=== PATIENT | male | born 1970 | race Caucasian/White ===

== ENCOUNTER 2018-05-25 09:47 | Observation (INO) | payer SELFPAY ==
[2018-05-25] MEDS ORDERED: ASPIRIN 81 MG CHEWABLE TABLET ONE (10:21)
[2018-05-25] MEDS ORDERED: MORPHINE 4 MG/ML SYR ONE (10:21)
[2018-05-25] MEDS ORDERED: ONDANSETRON 4 MG/2 ML VIAL ONE (10:22)
[2018-05-25] MEDS ORDERED: FAMOTIDINE 20 MG/2 ML VIAL IV ONE (10:22)
[2018-05-25] MEDS ORDERED: NA CHLORIDE 0.9% 1,000 ML ONE (10:22)
[2018-05-25 10:29] LABS: Absolute Lymphocytes (CBC) 2.2 K/uL (0.7-4.9); Absolute Monocytes 0.7 K/uL (0.1-1.3); Absolute Neutrophil 3.4 K/uL (1.8-8.0); Basophils % 0.9 % (0-1.3); Eosinophils % 2.1 % (0-4.4); Hematocrit 49.8 % (39.6-49.0); Lymphocytes % 34.1 % (15.3-44.8); MCH 32.1 pg (27.0-35.0); MCV 97.2 fL (80-100); MPV 8.6 fL (7.6-11.3); Monocytes % 10.5 % (3.3-12.3); RBC Red Blood Cell Count 5.12 M/uL (4.33-5.43)
--- NOTE | 2018-05-25 10:46 | EDPHYS ---
Physician Documentation [facility] Department Name: Denny Velez Jr Age: 47 yrs Sex: Male : 1970 Arrival Date: 05/25/2018 Time: 09:[address] Private MD: ED Physician Gilbert Osborne HPI: 05/25 10:11 This 47 yrs old Male presents to ER via Wheelchair with complaints of Chest sydni Pain. 10:11 The patient or guardian reports chest pain that is located primarily in the anterior sydni chest wall, left. Onset: just prior to arrival, this morning. The pain does not radiate. Associated signs and symptoms: Pertinent positives: shortness of breath. The chest pain is described as a pressure, sharp. Duration: The patient or guardian reports multiple episodes, with no pattern. Modifying factors: The symptoms are alleviated by remaining still, the symptoms are aggravated by deep breath, movement. Severity of pain: At its worst the pain was mild moderate in the emergency department the pain is unchanged. The patient has not experienced similar symptoms in the past. Historical: - Allergies: 10: NKA; iw 10: No Known Allergies; tw2 - Home Meds: 10: None [Active]; iw - PMHx: 10: None; iw - PSHx: 10: kidney surg; Tonsillectomy; iw 10:02 kidney surg; Tonsillectomy; tw2 - Immunization history:: Adult Immunizations not up to date, Adult Immunizations up to date. - Social history:: Smoking status: Patient uses tobacco products, smokes one pack cigarettes per day. Smoking status: Patient uses tobacco products, smokes one pack cigarettes per day. - Ebola Screening: : Patient negative for fever greater than or equal to 101.5 degrees Fahrenheit, and additional compatible Ebola Virus Disease symptoms Patient denies exposure to infectious person Patient denies travel to an Ebola-affected area in the 21 days before illness onset No symptoms or risks identified at this time. - Family history:: not pertinent. ROS: 10:11 Constitutional: Negative for fever, chills, and weight loss, Eyes: Negative for injury, sydni pain, redness, and discharge, ENT: Negative for injury, pain, and discharge, Neck: Negative for injury, pain, and swelling, Respiratory: Negative for shortness of breath, cough, wheezing, and pleuritic chest pain, Abdomen/GI: Negative for abdominal pain, nausea, vomiting, diarrhea, and constipation, Back: Negative for injury and pain, : Negative for injury, bleeding, discharge, and swelling, MS/Extremity: Negative for injury and deformity, Skin: Negative for injury, rash, and discoloration, Neuro: Negative for headache, weakness, numbness, tingling, and seizure, Psych: Negative for depression, anxiety, suicide ideation, homicidal ideation, and hallucinations, Allergy/Immunology: Negative for hives, rash, and allergies, Endocrine: Negative for neck swelling, polydipsia, polyuria, polyphagia, and marked weight changes, Hematologic/Lymphatic: Negative for swollen nodes, abnormal bleeding, and unusual bruising. 10:11 Cardiovascular: Positive for chest pain, with movement, of the left supraclavicular area, left clavicle and anterior aspect of left upper chest. Exam: 10:11 Constitutional: This is a well developed, well nourished patient who is awake, alert, sydni and in no acute distress. Head/Face: Normocephalic, atraumatic. Eyes: Pupils equal round and reactive to light, extra-ocular motions intact. Lids and lashes normal. Conjunctiva and sclera are non-icteric and not injected. Cornea within normal limits. Periorbital areas with no swelling, redness, or edema. ENT: Nares patent. No nasal discharge, no septal abnormalities noted. Tympanic membranes are normal and external auditory canals are clear. Oropharynx with no redness, swelling, or masses, exudates, or evidence of obstruction, uvula midline. Mucous membranes moist. Neck: Trachea midline, no thyromegaly or masses palpated, and no cervical lymphadenopathy. Supple, full range of motion without nuchal rigidity, or vertebral point tenderness. No Meningismus. Chest/axilla: Normal chest wall appearance and motion. Nontender with no deformity. No lesions are appreciated. Cardiovascular: Regular rate and rhythm with a normal S1 and S2. No gallops, murmurs, or rubs. Normal PMI, no JVD. No pulse deficits. Respiratory: Lungs have equal breath sounds bilaterally, clear to auscultation and percussion. No rales, rhonchi or wheezes noted. No increased work of breathing, no retractions or nasal flaring. Abdomen/GI: Soft, non-tender, with normal bowel sounds. No distension or tympany. No guarding or rebound. No evidence of tenderness throughout. Back: No spinal tenderness. No costovertebral tenderness. Full range of motion. Male : Normal genitalia with no discharge or lesions. Skin: Warm, dry with normal turgor. Normal color with no rashes, no lesions, and no evidence of cellulitis. 10:14 Musculoskeletal/extremity: DVT Exam: No signs of deep vein thrombosis. no pain, no sydni swelling, no tenderness, negative Homans' sign noted on exam, no appreciated bluish discoloration, no erythema, no increased warmth. Vital Signs: 10:00 BP 135 / 101; Pulse 88; Resp 19; Temp 98.5; Pulse Ox 99% on R/A; Weight 65.77 kg; iw Height 5 ft. 9 in. (175.26 cm); Pain 7/10; 10:28 BP 101 / 82; Pulse 77; Resp 17; Pulse Ox 97% on R/A; tw2 11:45 BP 101 / 79; Pulse 68; Resp 17; Pulse Ox 96% on R/A; tw2 12:14 BP 116 / 84; Pulse 69; Resp 17; Pulse Ox 98% on R/A; aj 10:00 Body Mass Index 21.41 (65.77 kg, 175.26 cm) iw MDM: 10:02 Patient medically screened. [facility] 10:13 Data reviewed: vital signs, nurses notes, lab test result(s), EKG, radiologic studies, [facility] CT scan, doppler. 05/25 10:11 Order name: Basic Metabolic Panel; Complete Time: 10:58 [facility] 05/25 10:11 Order name: CBC with Diff; Complete Time: 10:44 [facility] 05/25 10:11 Order name: Ckmb; Complete Time: 10:58 [facility] 05/25 10:11 Order name: CPK; Complete Time: 10:58 [facility] 05/25 10:11 Order name: LFT's; Complete Time: 10:58 [facility] 05/25 10:11 Order name: Magnesium; Complete Time: 10:58 [facility] 05/25 10:11 Order name: NT PRO-BNP; Complete Time: 10:58 [facility] 05/25 10:11 Order name: PT-INR [facility] 05/25 10:11 Order name: Ptt, Activated [facility] 05/25 10:11 Order name: Troponin (emerg Dept Use Only); Complete Time: 10:58 [facility] 05/25 10:11 Order name: XRAY Chest (1 view) [facility] 05/25 10:11 Order name: Lipase; Complete Time: 10:58 [facility] 05/25 10:11 Order name: CT Chest For PE Angio [facility] 05/25 11:29 Order name: CT EDMI 05/25 10:11 Order name: EKG; Complete Time: 10:11 [facility] 05/25 10:11 Order name: Cardiac monitoring; Complete Time: 10:17 [facility] 05/25 10:11 Order name: EKG - Nurse/Tech; Complete Time: 10:17 [facility] 05/25 10:11 Order name: IV Saline Lock; Complete Time: 10:17 [facility] 05/25 10:11 Order name: Labs collected and sent; Complete Time: 10:17 [facility] 05/25 10:11 Order name: O2 Per Protocol; Complete Time: 10:17 [facility] 05/25 10:11 Order name: O2 Sat Monitoring; Complete Time: 10:17 [facility] Administered Medications: 10:23 Drug: Zofran 4 mg Route: IVP; Site: right antecubital; tw2 11:59 Follow up: Response: No adverse reaction tw2 10:25 Drug: Aspirin Chewable Tablet 162 mg Route: PO; tw2 11:59 Follow up: Response: No adverse reaction tw2 10:25 Drug: morphine 2 mg Route: IVP; Site: right antecubital; tw2 11:59 Follow up: Response: No adverse reaction tw2 10:27 Drug: Pepcid 20 mg Route: IVP; Site: right antecubital; tw2 11:59 Follow up: Response: No adverse reaction tw2 10:28 Drug: NS 0.9% 1000 ml Route: IV; Rate: 1 bolus; Site: right antecubital; tw2 12:29 Follow up: Response: No adverse reaction; IV Status: Completed infusion; IV Intake: aj 1000ml 11:35 Drug: Lovenox 1 mg/kg Route: Sub-Q; Site: abdomen; aj 11:59 Follow up: Response: No adverse reaction tw2 12:47 Not Given (Duplicate Order): morphine 2 mg IVP once tw2 Disposition: 05/25/18 10:45 Hospitalization ordered by Kushal Spicer for Inpatient Admission. Preliminary diagnosis is Chest pain, unspecified. - Bed requested for Telemetry/MedSurg (observation). - Status is Inpatient Admission. tw2 - Condition is Fair. - Problem is new. - Symptoms have improved. UTI on Admission? No Signatures: Dispatcher [employer] EDMargaret Chery, RN Gilbert Clements MD MD cha Williams, Irene RN ROSARIO Madisyn Castillo Tara, RN RN tw2 Corrections: (The following items were deleted from the chart) 12:09 10:45 Hospitalization Ordered by Kushal Spicer MD for Inpatient Admission. Preliminary ag diagnosis is Chest pain, unspecified. Bed requested for Telemetry/MedSurg (observation). Status is Inpatient Admission. Condition is Fair. Problem is new. Symptoms have improved. UTI on Admission? No. sydni 13:04 12:09 05/25/2018 10:45 Hospitalization Ordered by Kushal Spicer MD for Inpatient tw2 Admission. Preliminary diagnosis is Chest pain, unspecified. Bed requested for Telemetry/MedSurg (observation). Status is Inpatient Admission. Condition is Fair. Problem is new. Symptoms have improved. UTI on Admission? No. ag
--- NOTE | 2018-05-25 10:46 | ER ---
Nurse's Notes [facility] Name: Denny Velez Jr Age: 47 yrs Sex: Male : 1970 Arrival Date: 05/25/2018 Time: 09:[address] Private MD: Diagnosis: Chest pain, unspecified Presentation: 05/25 09:59 Presenting complaint: Patient states: c/o left sided chest pain that started about an iw hour ago while at work, pain is sharp, constant, feels tingling in fingertips, rates pain 6/10, denies cardiac hx, denies injury to area. Transition of care: patient was not received from another setting of care. Onset of symptoms was May 25, 2018. Risk Assessment: Do you want to hurt yourself or someone else? Patient reports no desire to harm self or others. Initial Sepsis Screen: Does the patient meet any 2 criteria? No. Patient's initial sepsis screen is negative. Does the patient have a suspected source of infection? No. Patient's initial sepsis screen is negative. Care prior to arrival: None. 09:59 Method Of Arrival: Wheelchair iw 09:59 Acuity: PRANEETH 3 iw Historical: - Allergies: 10:01 NKA; iw 10:02 No Known Allergies; tw2 - Home Meds: 10:01 None [Active]; iw - PMHx: 10:01 None; iw - PSHx: 10:01 kidney surg; Tonsillectomy; iw 10:02 kidney surg; Tonsillectomy; tw2 - Immunization history:: Adult Immunizations not up to date, Adult Immunizations up to date. - Social history:: Smoking status: Patient uses tobacco products, smokes one pack cigarettes per day. Smoking status: Patient uses tobacco products, smokes one pack cigarettes per day. - Ebola Screening: : Patient negative for fever greater than or equal to 101.5 degrees Fahrenheit, and additional compatible Ebola Virus Disease symptoms Patient denies exposure to infectious person Patient denies travel to an Ebola-affected area in the 21 days before illness onset No symptoms or risks identified at this time. - Family history:: not pertinent. Screenin:07 Abuse screen: Denies threats or abuse. Nutritional screening: No deficits noted. tw2 Tuberculosis screening: No symptoms or risk factors identified. Fall Risk None identified. Assessment: 10:04 General: Appears uncomfortable, slender, Behavior is calm, cooperative, appropriate for tw2 age. General: Smells of cigarette smoke. Pain: Complains of pain in chest Pain radiates to left arm Pain began suddenly, 1 hour ago. Neuro: Level of Consciousness is awake, alert, obeys commands, Oriented to person, place, time, situation. Cardiovascular: Reports None Denies shortness of breath, Heart tones S1 S2 Capillary refill < 3 seconds Patient's skin is warm and dry. Cardiovascular: Reports worse with deep breath. Respiratory: Airway is patent Respiratory effort is even, unlabored, Respiratory pattern is regular, symmetrical, Breath sounds are clear bilaterally. GI: No signs and/or symptoms were reported involving the gastrointestinal system. Abdomen is flat, Bowel sounds present X 4 quads. : No signs and/or symptoms were reported regarding the genitourinary system. EENT: No signs and/or symptoms were reported regarding the EENT system. Derm: No signs and/or symptoms reported regarding the dermatologic system. Musculoskeletal: Range of motion: intact in all extremities. 10:29 Reassessment: Patient appears in no apparent distress at this time. No changes from tw2 previously documented assessment. Patient and/or family updated on plan of care and expected duration. Pain level reassessed. Patient is alert, oriented x 3, equal unlabored respirations, skin warm/dry/pink. 12:00 Reassessment: Patient appears in no apparent distress at this time. Patient and/or tw2 family updated on plan of care and expected duration. Pain level reassessed. Patient is alert, oriented x 3, equal unlabored respirations, skin warm/dry/pink. Patient states feeling better. 12:47 Reassessment: Patient appears in no apparent distress at this time. No changes from tw2 previously documented assessment. Patient and/or family updated on plan of care and expected duration. Pain level reassessed. Patient is alert, oriented x 3, equal unlabored respirations, skin warm/dry/pink. Vital Signs: 10:00 BP 135 / 101; Pulse 88; Resp 19; Temp 98.5; Pulse Ox 99% on R/A; Weight 65.77 kg; iw Height 5 ft. 9 in. (175.26 cm); Pain 7/10; 10:28 BP 101 / 82; Pulse 77; Resp 17; Pulse Ox 97% on R/A; tw2 11:45 BP 101 / 79; Pulse 68; Resp 17; Pulse Ox 96% on R/A; tw2 12:14 BP 116 / 84; Pulse 69; Resp 17; Pulse Ox 98% on R/A; aj 10:00 Body Mass Index 21.41 (65.77 kg, 175.26 cm) iw ED Course: 09:50 Patient arrived in ED. rg4 10:00 Rosibel Jefferson, RN is Primary Nurse. tw2 10:00 Arm band placed on. iw 10:00 Placed in gown. Bed in low position. Adult w/ patient. 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 Pulse ox on. tw2 NIBP on. 10:01 Triage completed. iw 10:02 Gilbert Osborne MD is Attending Physician. sydni 10:06 Primary Nurse role handed off by Rosbiel Jefferson RN aj 10:06 Margaret Bernal RN is Primary Nurse. aj 10:06 Patient maintains SpO2 saturation greater than 95% on room air. tw2 10:15 No provider procedures requiring assistance completed. Inserted saline lock: 20 gauge tw2 in right antecubital area, using aseptic technique. Blood collected. 10:16 Rosibel Jefferson, RN is Primary Nurse. tw2 10:30 X-ray completed. Portable x-ray completed in exam room. Patient tolerated procedure ml well. 10:31 XRAY Chest (1 view) In Process Unspecified. EDMS 10:45 Kushal Spicer MD is Hospitalizing Provider. sydni 11:10 CT completed. Patient moved back from CT. sj 12:28 Patient admitted, IV remains in place. intact. aj Administered Medications: 10:23 Drug: Zofran 4 mg Route: IVP; Site: right antecubital; tw2 11:59 Follow up: Response: No adverse reaction tw2 10:25 Drug: Aspirin Chewable Tablet 162 mg Route: PO; tw2 11:59 Follow up: Response: No adverse reaction tw2 10:25 Drug: morphine 2 mg Route: IVP; Site: right antecubital; tw2 11:59 Follow up: Response: No adverse reaction tw2 10:27 Drug: Pepcid 20 mg Route: IVP; Site: right antecubital; tw2 11:59 Follow up: Response: No adverse reaction tw2 10:28 Drug: NS 0.9% 1000 ml Route: IV; Rate: 1 bolus; Site: right antecubital; tw2 12:29 Follow up: Response: No adverse reaction; IV Status: Completed infusion; IV Intake: aj 1000ml 11:35 Drug: Lovenox 1 mg/kg Route: Sub-Q; Site: abdomen; aj 11:59 Follow up: Response: No adverse reaction tw2 12:47 Not Given (Duplicate Order): morphine 2 mg IVP once tw2 Intake: 12:29 IV: 1000ml; Total: 1000ml. Outcome: 10:45 Decision to Hospitalize by Provider. sydni 12:28 Admitted to Tele accompanied by tech, via wheelchair, Report called to Keyona hutchison 12:28 Condition: good 12:28 Instructed on the need for admit. 13:04 Patient left the ED. tw2 Signatures: Dispatcher [employer] Margaret Jacob, RN RN Gilbert José MD MD cha Jones, Rebecca Caldwell, RN ROSARIO iw Lynn Carey Tara, RN RN tw2 Lata Romero rg4 Corrections: (The following items were deleted from the chart) 10:01 10:00 BP 135 / 101; Pulse 88bpm; Resp 19bpm; Pulse Ox 99% RA; Temp 98.5F; tw2 iw
[2018-05-25 10:47] LABS: ALT/SGPT 131 U/L (12-78); AST/SGOT 56 U/L (15-37); Albumin 4.2 g/dL (3.4-5.0); Alkaline Phosphatase 70 U/L (45-117); BUN Blood Urea Nitrogen 17 mg/dL (7-18); Bicarbonate 32 mmol/L (21-32); Bilirubin Direct 0.2 mg/dL (0-0.2); Bilirubin Total 0.5 mg/dL (0.2-1.0); CKMB Creatine Kinase MB 2.9 ng/mL (0.3-3.6); Creatine Phosphokinase 86 U/L (39-308); Glucose Level 124 mg/dL (74-106); Lipase 92 U/L (73-393); Magnesium 2.4 mg/dL (1.8-2.4); NT PRO-BNP 166 pg/mL (<125); Protein, Total 7.5 g/dL (6.4-8.2); Sodium Level 141 mmol/L (136-145)
[2018-05-25] MEDS ORDERED: ENOXAPARIN 60 MG/0.6 ML SQ ONE (10:54)
[2018-05-25 11:04] LABS: Protime INR 0.92
[2018-05-25] MEDS ORDERED: MORPHINE 4 MG/ML SYR IV PRN (11:14)
[2018-05-25] MEDS ORDERED: ACETAMINOPHEN 500 MG TAB PO PRN (11:14)
[2018-05-25] MEDS ORDERED: ALPRAZOLAM 0.25 MG TABLET PO PRN (11:14)
[2018-05-25] MEDS ORDERED: NITROGLYCERIN 0.4 MG/TAB SL PRN (11:14)
[2018-05-25] MEDS ORDERED: LISINOPRIL 10 MG TAB PO SCH (11:14)
[2018-05-25] MEDS ORDERED: ZOLPIDEM TARTRATE 5 MG TABLET PO PRN (11:14)
--- NOTE | 2018-05-25 11:28 | RAD REPORT ---
EXAM DESCRIPTION: CT - Chest For Pe Angio - 05/25/2018 11:15 am CLINICAL HISTORY: Chest pain started 1 hour ago. COMPARISON: None. TECHNIQUE: Dynamically enhanced axial 3 mm thick images of the chest were obtained during administra tion of <100> mL Isovue 370 IV contrast. Coronal and oblique reconstruction images were generated and reviewed. Exam utilizes a protocol for optimal evaluation of pulmonary arterial tree. Maximum intensity projections 3D imaging was utilized All CT scans are performed using dose optimization technique as appropriate and may include automated exposure control or mA/KV adjustment according to patient size. FINDINGS: A pulmonary embolus is not seen. A thoracic aortic aneurysm is not noted. A pleural effusion is not seen. A pericardial effusion is not seen. A lung consolidation is not present. Calcified granuloma is present within the right lung. Mild anushka eptal emphysema is present. An 11 millimeter soft tissue structure abuts the right aspect of an upper thoracic vertebral body. A 9 millimeter retrocrural lymph node is present within the upper abdomen IMPRESSION: Negative for a pulmonary embolism. 11 millimeter right paravertebral soft tissue mass may be neurogenic in nature. 9 millimeter retrocrural lymph node within the upper abdomen. It is recommended that the patient have a followup CT scan in 3 months to assess stability of these s tructures
--- NOTE | 2018-05-25 11:40 | RAD REPORT ---
EXAM DESCRIPTION: Ne Single View05/25/2018 10:33 am CLINICAL HISTORY: Chest pain COMPARISON: 2013 FINDINGS: The lungs are hyperaerated. The lungs appear clear of acute infiltrate. The heart is normal size IMPRESSION: COPD without visualization acute abnormality
[2018-05-25] MEDS ORDERED: SODIUM CHLORIDE 0.9% 10ML INJ IV PRN (13:54)
--- NOTE | 2018-05-25 15:27 | ECHO ---
HEIGHT: 5 ft 9 in WEIGHT: 145 lb 0 oz DATE OF STUDY: 05/25/[address]: Kushal Spicer MD 2-DIMENSIONAL: YES M.MODE: YES DOPPLER: YES COLOR FLOW: YES TDS: PORTABLE: DEFINITY: BUBBLE STUDY: DIAGNOSIS: CHEST PAIN CARDIAC HISTORY: CATHERIZATION: NO SURGERY: NO PROSTHETIC VALVE: NO PACEMAKER: NO MEASUREMENTS (cm) DIASTOLIC (NORMALS) SYSTOLIC (NORMALS) IVSd 1.0 (0.6-1.2) LA Diam 3.1 (1.9-4.0) LVEF 63% LVIDd 4.4 (3.5-5.7) LVIDs 2.9 (2.0-3.5) %FS 34% LVPWd 1.1 (0.6-1.2) Ao Diam 2.7 (2.0-3.7) 2 DIMENSIONAL ASSESSMENT: RIGHT ATRIUM: NORMAL LEFT ATRIUM: NORMAL RIGHT VENTRICLE: NORMAL LEFT VENTRICLE: NORMAL TRICUSPID VALVE: NORMAL MITRAL VALVE: NORMAL PULMONIC VALVE: NORMAL AORTIC VALVE: NORMAL PERICARDIAL EFFUSION: NONE AORTIC ROOT: NORMAL LEFT VENTRICULAR WALL MOTION: NORMAL DOPPLER/COLOR FLOW: MILD TRICUSPID REGURGITATION COMMENTS: MILD TRICUSPID REGURGITATION. NORMAL RIGHT VENTRICULAR SYSTOLIC PRESSURE. NORMAL LEFT VENTRICULAR SIZE AND FUNCTION. NO WALL MOTION ABNORMALITY. NO EFFUSION. TECHNOLOGIST: DARWIN DALLAS
[2018-05-25 15:33] VITALS: BMI 21.4
--- NOTE | 2018-05-25 15:35 | EKG ---
Test Date: 2018-05-25 Test Time: 10:01:25 Mine Expert: BEN MEASUREMENT RESULTS: Intervals: Rate: 69 CT: 124 QRSD: 82 QT: 360 QTc: 385 [place]: P: 75 CT: 124 QRS: 78 T: 60 INTERPRETIVE STATEMENTS: Normal sinus rhythm Early repolarization Normal ECG Compared to ECG 04/25/2017 19:58:02 Early repolarization now present Sinus arrhythmia no longer present Electronically Signed On 05-25-18 15:33:43 CDT by Zbigniew Alex
[2018-05-25] MEDS: PANTOPRAZOLE 40 MG INJ IVP SCH ×2 (18:14→20:42)
[2018-05-25 18:58] LABS: Urine Appearance CLEAR; Urine Bilirubin NEGATIVE (NEG); Urine Blood NEGATIVE (NEG); Urine Color YELLOW; Urine Glucose NEGATIVE (NEG); Urine Protein NEGATIVE (NEG); Urine Specific Gravity >=1.030 (1.005-1.030); Urine Urobilinogen 0.2 mg/dL (0.2-1.0); Urine pH 6.5 (5.0-7.0)
[2018-05-25 19:11] LABS: Urine Bacteria <20 /HPF (NONE SEEN); Urine Culture Reflex Order NOT NEEDED; Urine Mucus 1+ /HPF (NONE SEEN); Urine RBC <5 /HPF (NONE SEEN)
[2018-05-25] MEDS ORDERED: METOPROLOL TAR 25 MG TAB PO SCH (21:00)
[2018-05-25] MEDS ORDERED: ATORVASTATIN 40 MG TAB PO SCH (21:00)
--- NOTE | 2018-05-25 23:37 | HP ---
Date of Admission: 05/25/2018 Consultants: Dr. Alex with Cardiology. Primary Care Physician: None. History Of Present Illness: The patient is a 47-year-old male with past medical history of gastroeso phageal reflux disease, who has not seen a physician for 4 years, used to see Dr. Neil, does not neetu e any medications at home other than some sstv-edq-[id number] Prilosec. Comes in with sudden onset of c hest pain while at work. 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 He exper ienced sharp stabbing type pain in his left chest along with some numbness and tingling of his left h and and fingers. The patient also has some shortness of breath. No nausea, vomiting, diaphoresis. Pain was constant, moderate, progressively worsening. The patient does smoke. The patient therefore came into the ER for further evaluation. No alleviating or aggravating factor. He also reports sha rp pain with deep breath, unable to take a deep breath without having pain. The patient's vital sign s were stable in the ER. His workup revealed normal troponin level. White count was normal. Did kaye ve some elevated liver enzymes. CT angio chest was done which showed negative for PE 11 mm right par avertebral soft tissue mass, may be neurogenic in nature, 9 mm retrocrural lymph node within the uppe r abdomen, recommended to have a followup CT in 3 months to assess stability of these structures. Th e patient is admitted to the hospital for further evaluation for chest pain rule out. When seen in [facility] ER, he was awake, alert, oriented x3, not in any acute distress; however, still complaining of navi e chest pressure. Past Medical History: Gastroesophageal reflux disease. Past Surgical History: The patient had kidney surgery as a child due to trauma, tonsillectomy. Social History: The patient smokes 1 pack per day for the past 35 years. Was a heavy drinker; [facility], quit approximately 1 year ago. The patient is . Denies any illicit drug use. 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 Allergies: NO KNOWN DRUG ALLERGIES. Medications: The patient takes fggw-gsw-yunjotz Prilosec only. Family History: Mother had diabetes and stroke. Dad and brother have hypertension. Review of Systems: An 11-point system reviewed, negative except as per HPI. Physical Examination: Vital Signs: Pulse 77, respirations 17, blood pressure 101/82, O2 of 97% on room air. Initial blood pressure was 135/101, temperature 98.5. General: Awake, alert, oriented x3. Some mild distress, appears older than stated age. CV: S1, S2. No murmurs. Regular rate and rhythm. Peripheral pulses are present. HEENT: Normocephalic, atraumatic. PERRLA. EOMI. Moist mucous membranes. Oropharynx is clear. Poo r dentition. Conjunctiva is anicteric. Neck: Supple. No JVD. Trachea midline. Respiratory: Clear to auscultation bilaterally. No wheezing. No stridor. No use of accessory musc les. Gastrointestinal: Abdomen is soft, nontender, nondistended. Positive bowel sounds. No guarding or rigidity. No hepatomegaly. Extremities: No clubbing, cyanosis, or edema. No calf tenderness. Neuro: Cranial nerves 2 through 12 intact grossly. No focal neurological deficit. Speech is normal . Strength is 5/5 bilateral upper, lower extremities. Skin: No rashes. Normal skin turgor. Psych: Mood is okay. Affect is full. Insight and judgment are good. Laboratory Data: Sodium 141, potassium 4, chloride 104, CO2 of 32, BUN 17, creatinine 0.8, glucose 1 24, calcium 9.1, magnesium 2.4, AST 56, ALT 131. Troponin is less than 0.02. BNP 166, lipase 92. I NR 0.92. WBC 6.5, H and H 16.5 and 49.8, platelets 210. CT angio chest shows no PE, shows 11 mm right paravertebral soft tissue mass, may be neurogenic. A 9 mm retrocrural lymph node within the upper abdomen. Chest x-ray personally reviewed, shows COPD wit hout visualization of acute abnormality. Assessment And Plan: A 47-year-old male with: 1.Chest pain, rule out acute coronary syndrome. We will start on chest pain guidelines and with asp irin, statin, beta-greta, GLENIS inhibitor. Consult Cardiology. Obtain echocardiogram. The patient may require stress test. Initial troponin and EKG did not show any changes. The patient does have r isk factors, smoker. 2.Nicotine dependence with cigarette smoking, uncomplicated, counseled. 3.Elevated liver enzymes, likely related to fatty liver disease or possibly alcoholic liver disease. The patient has a longstanding history of drinking, quit about a year ago. 4.Gastroesophageal reflux disease. We will continue with IV PPI. The patient likely does have pept ic ulcer disease from his symptoms that he describes. The patient will need outpatient gastrointesti nal followup. 5.An 11 mm right paravertebral soft tissue mass. Followup CT in 3 months. 6.A 9 mm retrocrural lymph node, upper abdomen. Follow up CT scan in 3 months. 7.Gastrointestinal and deep venous thrombosis prophylaxis with PPI and Lovenox. Plan: Admit the patient to Med-Surg, [facility] as observation. SHARMIN Voice ID: [id number]
[2018-05-26 04:15] LABS: Absolute Lymphocytes (CBC) 2.2 K/uL (0.7-4.9); Absolute Monocytes 0.7 K/uL (0.1-1.3); Absolute Neutrophil 3.8 K/uL (1.8-8.0); Basophils % 0.7 % (0-1.3); Eosinophils % 2.4 % (0-4.4); Hematocrit 47.8 % (39.6-49.0); MCH 32.3 pg (27.0-35.0); MCV 98.1 fL (80-100); MPV 8.8 fL (7.6-11.3); Monocytes % 10.1 % (3.3-12.3); RBC Red Blood Cell Count 4.87 M/uL (4.33-5.43)
[2018-05-26 05:06] LABS: BUN Blood Urea Nitrogen 14 mg/dL (7-18); Bicarbonate 30 mmol/L (21-32); Glucose Level 107 mg/dL (74-106); HDL Cholesterol 45 mg/dL (40-60); LDL Cholesterol, Calculated 28 (<130); Potassium 4.2 mmol/L (3.5-5.1); Sodium Level 141 mmol/L (136-145)
--- NOTE | 2018-05-26 08:09 | P.PN ---
Subjective Date of Service: 05/26/18 Primary Care Provider: None Chief Complaint: Chest pain Subjective: Improving Physical Examination - Vital Signs Temperature: 98.4 F Blood Pressure: 110/70 Pulse: 66 Respirations: 18 Pulse Ox (%): 93 - Physical Exam General: Alert, In no apparent distress, Oriented x3, Cooperative HEENT: Atraumatic Neck: Supple Respiratory: Normal air movement, Expiratory wheezes (Mild wheezing) Cardiovascular: Normal pulses, Regular rate/rhythm Gastrointestinal: Normal bowel sounds, Soft and benign, Non-distended, No tenderness, No masses, No rebound, No guarding Musculoskeletal: No erythema, No tenderness, No warmth Integumentary: No tenderness/swelling, No erythema, No warmth, No cyanosis Neurological: Normal speech, Normal strength at 5/5 x4 extr, Normal tone - Studies Laboratory Data (last 24 hrs) 05/25/18 10:10: PT 10.8, INR 0.92, APTT 26.2 05/25/18 10:10: WBC 6.5, Hgb 16.5, Hct 49.8 H, Plt Count 210 05/25/18 10:10: Sodium 141, Potassium 4.0, BUN 17, Creatinine 0.80, Glucose 124 H, Magnesium 2.4, Total Bilirubin 0.5, AST 56 H, ALT 131 H, Alkaline Phosphatase 70, Lipase 92 Medications List Reviewed: Yes Assessment & Plan - Problems (Diagnosis) (1) Chest pain Current Visit: Yes Status: Acute Plan: Chest pain sounds atypical. Likely musculoskeletal. Patient evaluated by Cardiology. Stress tests will be ordered. Await results. If negative the patient can be discharged home. Will review blood pressure if the patient requires medication. Will continue with aspirin. Patient on DVT prophylaxis. Tobacco cessation addressed in detail. Qualifiers: Chest pain type: unspecified Qualified Code(s): R07.9 - Chest pain, unspecified (2) COPD (chronic obstructive pulmonary disease) Current Visit: Yes Status: Suspected Plan: Patient is a long-time smoker. He plans to quit. Patient with mild wheezing. Will start Symbicort and ProAir at discharge. Qualifiers: COPD type: chronic bronchitis Chronic bronchitis type: unspecified Qualified Code(s): J42 - Unspecified chronic bronchitis (3) GERD (gastroesophageal reflux disease) Current Visit: Yes Status: Chronic Plan: Patient takes over the counter medication. Patient will be discharged on Protonix 40 mg daily. Recommendation for the patient to follow up with GI as an outpatient to further address. Qualifiers: Esophagitis presence: esophagitis presence not specified Qualified Code(s) : K21.9 - Gastro-esophageal reflux disease without esophagitis (4) Tobacco abuse Current Visit: Yes Status: Chronic Plan: Tobacco cessation addressed in detail. Patient plans to quit. Will provide nicotine patch. Discharge Plan: Home Plan to discharge in: 24 Hours - Code Status/Comfort Care Code Status Assessed: Yes (Patient full code) Time Spent Managing Pts Care (In Minutes): 55
[2018-05-26] MEDS ORDERED: ASPIRIN EC 81 MG TAB PO SCH (09:00)
[2018-05-26] MEDS: PANTOPRAZOLE 40 MG INJ IVP SCH (09:00)
[2018-05-26] MEDS ORDERED: LISINOPRIL 5 MG TAB PO SCH (09:00)
[2018-05-26] MEDS ORDERED: ENOXAPARIN 40 MG/0.4 ML SQ SCH (09:00)
[2018-05-26 09:04] VITALS: O2SAT 94
--- NOTE | 2018-05-26 10:22 | P.DS ---
Admission Date: 05/25/18 Discharge Date: 05/26/18 Primary Care Provider: None Disposition: ROUTINE DISCHARGE Discharge Condition: GOOD Reason for Admission: Chest pain Consultations: Cardiology-Dr. Alex Procedures: Chest CT scan: FINDINGS: A pulmonary embolus is not seen. A thoracic aortic aneurysm is not noted. A pleural effusion is not seen. A pericardial effusion is not seen. A lung consolidation is not present. Calcified granuloma is present within the right lung. Mild paraseptal emphysema is present. An 11 millimeter soft tissue structure abuts the right aspect of an upper thoracic vertebral body. A 9 millimeter retrocrural lymph node is present within the upper abdomen IMPRESSION: Negative for a pulmonary embolism. 11 millimeter right paravertebral soft tissue mass may be neurogenic in nature. 9 millimeter retrocrural lymph node within the upper abdomen. It is recommended that the patient have a followup CT scan in 3 months to assess stability of these structures Echocardiogram: Ejection fraction 63%. Mild tricuspid regurgitation noted. - Problems (1) Chest pain Current Visit: Yes Status: Acute Qualifiers: Chest pain type: unspecified Qualified Code(s): R07.9 - Chest pain, unspecified (2) COPD (chronic obstructive pulmonary disease) Current Visit: Yes Status: Suspected Qualifiers: COPD type: chronic bronchitis Chronic bronchitis type: unspecified Qualified Code(s): J42 - Unspecified chronic bronchitis (3) GERD (gastroesophageal reflux disease) Current Visit: Yes Status: Chronic Qualifiers: Esophagitis presence: esophagitis presence not specified Qualified Code(s) : K21.9 - Gastro-esophageal reflux disease without esophagitis (4) Tobacco abuse Current Visit: Yes Status: Chronic (5) Musculoskeletal pain Current Visit: Yes Status: Acute (6) Abnormal CT scan Current Visit: Yes Status: Acute Brief History of Present Illness: 47-year-old male present emergency room with left-sided chest pain. This occurred after working. 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 He had pain to the left chest wall region. The patient was admitted for further evaluation and treatment. Patient with history of tobacco abuse, GERD. Hospital Course: During the course of his stay the patient was evaluated. CT chest was negative for pulmonary embolism. 11 mm right paravertebral soft tissue mass, may be neurogenic in nature was noted. A 9 mm retrocrural lymph node to the upper abdomen was noted. The patient was evaluated by cardiology. Cardiology felt this was noncardiac in nature. Cardiac enzymes were unremarkable. No significant EKG changes were noted. Patient blood pressure and cholesterol panel was within normal range. At discharge the patient will continue with aspirin 81 mg daily. Recommendation is for the patient follow up with cardiology within 1 week. Patient will have outpatient stress test to further assess. This is likely musculoskeletal in nature. Recommendations on stretching was provided. Patient may use Tylenol as needed for pain. Patient will be given a limited supply of tramadol to be use as needed. Patient has GERD. Recommendation at discharge is to continue with Protonix 40 mg 1 pill once daily. Recommendation is for the patient follow up with GI as an outpatient to further evaluate. Patient may require EGD. Recommendation on to decrease nonsteroidal anti inflammatory use in the future. Patient smokes tobacco. Tobacco cessation addressed in detail. Patient plans to quit. I will provide nicotine patch for the patient. Patient did have some wheezing. With his history of tobacco use, patient likely has underlying COPD. At discharge the patient will be started on Airduo 1 puff twice daily and Pro air 2 puffs 3 times a day as needed for shortness of breath. Recommendations for the patient follow up with pulmonology in outpatient to further evaluate. Patient may require PFTs to further address. The patient had abnormal CT scan showing 11 mm peravertebral soft tissue mass likely from neurogenic and a 9 mm retrocrural lymph node to the upper abdomen. Recommendation is to recheck CT scan in 3 months to monitor stability. Vital Signs/Physical Exam: Temp Pulse Resp BP Pulse Ox 98.4 F 66 18 110/70 93 05/26/18 08:09 05/26/18 08:09 05/26/18 08:09 05/26/18 08:09 05/26/18 08:09 General: Alert, In no apparent distress, Oriented x3, Cooperative HEENT: Atraumatic, Mucous membr. moist/pink Neck: Supple Respiratory: Expiratory wheezes (Mild wheezing) Cardiovascular: Normal pulses, Regular rate/rhythm Gastrointestinal: Normal bowel sounds, Soft and benign, Non-distended, No tenderness, No masses, No rebound, No guarding Musculoskeletal: No erythema, No tenderness, No warmth Integumentary: No tenderness/swelling, No erythema, No warmth, No cyanosis Neurological: Normal speech, Normal strength at 5/5 x4 extr, Normal tone, Normal affect Lymphatics: No axilla or inguinal lymphadenopathy Laboratory Data at Discharge: WBC 6.9 K/uL (4.3-10.9) 05/26/18 03:54 Hgb 15.7 g/dL (13.6-17.9) 05/26/18 03:54 Hct 47.8 % (39.6-49.0) 05/26/18 03:54 Plt Count 195 K/uL (152-406) 05/26/18 03:54 PT 10.8 SECONDS (9.5-12.5) 05/25/18 10:10 INR 0.92 05/25/18 10:10 APTT 26.2 SECONDS (24.3-36.9) 05/25/18 10:10 Sodium 141 mmol/L (136-145) 05/26/18 03:54 Potassium 4.2 mmol/L (3.5-5.1) 05/26/18 03:54 BUN 14 mg/dL (7-18) 05/26/18 03:54 Creatinine 0.80 mg/dL (0.55-1.3) 05/26/18 03:54 Glucose 107 mg/dL (74-106) H 05/26/18 03:54 Magnesium 2.4 mg/dL (1.8-2.4) 05/25/18 10:10 Total Bilirubin 0.5 mg/dL (0.2-1.0) 05/25/18 10:10 AST 56 U/L (15-37) H 05/25/18 10:10 ALT 131 U/L (12-78) H 05/25/18 10:10 Alkaline Phosphatase 70 U/L (45-117) 05/25/18 10:10 Troponin I < 0.02 ng/mL (0.0-0.045) 05/26/18 03:54 Triglycerides 66 mg/dL (<150) 05/26/18 03:54 Cholesterol 86 mg/dL (<200) 05/26/18 03:54 HDL Cholesterol 45 mg/dL (40-60) 05/26/18 03:54 Cholesterol/HDL Ratio 1.91 05/26/18 03:54 Lipase 92 U/L (73-393) 05/25/18 10:10 Home Medications: Albuterol Sulfate [Proair Hfa] 8.5 gm IH TID PRN #1 hfa.aer.ad 05/26/18 Aspirin [Aspirin EC 81 MG] 81 mg PO DAILY #90 tablet. 05/26/18 Fluticasone/Salmeterol [Airduo Respiclick 113-14 Mcg] 1 each IH BID #1 aer.pow.ba 05/26/18 Nicotine [Nicoderm*] 21 mg TD DAILY #30 patch.td24 05/26/18 Pantoprazole [Protonix Tab] 40 mg PO DAILY #30 tab 05/26/18 Tramadol HCl [Ultram] 50 mg PO TID PRN #10 tablet 05/26/18 New Medications: Albuterol Sulfate [Proair Hfa] 8.5 gm IH TID PRN #1 hfa.aer.ad PRN Reason: Shortness Of Breath Aspirin [Aspirin EC 81 MG] 81 mg PO DAILY #90 tablet. Fluticasone/Salmeterol [Airduo Respiclick 113-14 Mcg] 1 each IH BID #1 aer.pow.ba Nicotine [Nicoderm*] 21 mg TD DAILY #30 patch.td24 Pantoprazole [Protonix Tab] 40 mg PO DAILY #30 tab Tramadol HCl [Ultram] 50 mg PO TID PRN #10 tablet PRN Reason: Pain Patient Discharge Instructions: 1. Patient will need to follow up with his PCP in 1 week to follow up this hospitalization. 2. Patient presented with chest pain. CT chest was negative for pulmonary embolism. 11 mm right paravertebral soft tissue mass, may be neurogenic in nature was noted. A 9 mm retrocrural lymph node to the upper abdomen was noted. The patient was evaluated by cardiology. Cardiology felt this was noncardiac in nature. Cardiac enzymes were unremarkable. Patient blood pressure and cholesterol panel was within normal range. At discharge the patient will continue with aspirin 81 mg daily. Recommendation is for the patient follow up with cardiology within 1 week. Patient will have outpatient stress test to further assess. This is likely musculoskeletal in nature. Recommendations on stretching was provided. Patient may use Tylenol as needed for pain. Patient will be given a limited supply of tramadol to be use as needed. 3. Patient has GERD. Recommendation at discharge is to continue with Protonix 40 mg 1 pill once daily. Recommendation is for the patient follow up with GI as an outpatient to further evaluate. Patient may require EGD. Recommendation on to decrease nonsteroidal anti inflammatory use in the future. 4. Patient smokes tobacco. Tobacco cessation addressed in detail. Patient plans to quit. I will provide nicotine patch for the patient. 5. Patient did have some wheezing. With his history of tobacco use, patient likely has underlying COPD. At discharge the patient will be started on Airduo 1 puff twice daily and Pro air 2 puffs 3 times a day as needed for shortness of breath. Recommendations for the patient follow up with pulmonology in outpatient to further evaluate. Patient may require PFTs to further address. 6. The patient had abnormal CT scan showing 11 mm peravertebral soft tissue mass likely from neurogenic and a 9 mm retrocrural lymph node to the upper abdomen. Recommendation is to recheck CT scan in 3 months to monitor stability. Diet: AHA Activity: Ad dayana Time spent managing pt's care (in minutes): 55
[2018-05-26 11:56] VITALS: BP 106/63; TEMP 97.8
--- NOTE | 2018-05-26 14:28 | CON ---
Date of Consultation: 05/25/2018 The patient was admitted to Dr. Gonzales' service on May 25, 2018. The patient was seen on May 25. Reason For Consultation: Chest pain. History Of Present Illness: Mr. Velez is a 47-year-old white male. Has no past medical history of any kind. Does not have a family history of heart disease. He does smoke, but denied any diabetes, hypertension or dyslipidemia. He comes in with left-sided lateral below the axillary chest pain radi ating to the left arm with numbness, worse with movement. No nausea, vomiting, diaphoresis, PND, ort hopnea, pedal edema, palpitations, or syncope. By the time I saw him, he had a normal troponin, CPKs and MB, and echocardiogram. His EKG showed early repolarization. He was pain free. Only significa nt diagnostic abnormality was slight elevation in the liver function test. Also, he has some small w hat appeared to be lymph nodes on CT scan of the chest and a followup was recommended. Past Medical History: Negative. Allergies: NONE. Review of Systems: Negative. Social History: Positive for tobacco and some alcohol use. Family History: Negative for heart disease. Physical Examination: Vital Signs: Stable. He was afebrile. HEENT: Negative. Neck: Supple with no bruit. Chest: Clear to auscultation and percussion. Cardiac: Revealed a regular rhythm and rate without any murmurs, gallops, or rubs. Abdomen: Benign. Extremities: Revealed no clubbing, cyanosis, or edema. Diagnostic Data: Normal from a cardiac standpoint, slight elevation in liver function tests. Impression And Plan: Atypical chest pain, most likely musculoskeletal. Risk factors were age and hi s tobacco abuse. He can go home. I will make an arrangement for him to have an outpatient stress te st. RICK/BRYON Voice ID: [id number] Report ID: [id number]
== END 2018-05-26 12:10 | disposition home or self-care (01) ==
LOC: ER 09:47 → ERHOLD 10:46 → 4TH 12:30
PROVIDERS: ADMIT Family Medicine; ATTEND Family Medicine
DX: R07.89 Other chest pain (principal); I07.1 Rheumatic tricuspid insufficiency; R59.0 Localized enlarged lymph nodes; M48.8X4 Other specified spondylopathies, thoracic region; F17.210 Nicotine dependence, cigarettes, uncomplicated; R79.89 Other specified abnormal findings of blood chemistry; J42 Unspecified chronic bronchitis; K21.9 Gastro-esophageal reflux disease without esophagitis; Z79.82 Long term (current) use of aspirin
CPT/HCPCS: 36415; 71045; 71275; 80048; 80061; 80076; 81001; 82550; 82553; 82962; 83690; 83735; 83880; 84484; 85025; 85610; 85730; 93005; 93306; 94760; 96361; 96372; 96374; 96375; 99285; C9113; G0378; J1650; J2405; J7030; Q9967

== ENCOUNTER 2021-10-30 16:37 | Emergency (ER) | payer OTHER, SELFPAY ==
--- OUTSIDE RECORDS SUMMARY | 2021-10-30 16:40 | XMS REPORT | Continuity of Care Document ---
:1970 Author Organization [facility] t Address [address] [place] [address] Dr. [address] [place] [address] Care Team Providers Name Role Phone PCP, DOES NOT HAVE A Primary Care Physician Unavailable Marcia NGUYEN, S Attending Clinician MARCIA S Attending Clinician Unavailable Doctor Unassigned, Name Attending Clinician Unavailable MARCIA, S Admitting Clinician Unavailable Payers Payer Name Policy Type Policy Number Effective Date Expiration Date S ource Problems Condition Condition Condition Status Onset Resolution Last Treating Co mments Source Name Details Category Date Date Treatment Clinician Date No known No known Disease Unive rs active active ity of problems problems [facility] Allergies, Adverse Reactions, Alerts Allergy Allergy Status Severity Reaction(s) Onset Inactive Treating Comm ents Source Name Type Date Date Clinician NO KNOWN Drug Active [facility] ALLERGIE Class ity of S [facility] Social History Social Habit Start Date Stop Date Quantity Comments Source Exposure to Not sure [facility] SARS-CoV-2 (event) Medica l Branch Sex Assigned At [birth year] [facility] 00:00:00 00:00:00 [facility] Smoking Status Start Date Stop Date Source Unknown if ever smoked [facility] Medications Ordered Filled Start Stop Current Ordering Indication Dosage Frequency Signature Comments Components Source Medication Medication Date Date Medication? Clinician (SIG) Name Name cephALEXin 2020-11- No 500mg 500 mg, Un mary (KEFLEX) 0-21 10-21 Oral, ity of capsule 500 19:15: 18:27 [place] 00 :00 dose, On Medical Danielle [facility] 09/12/21 at 1415, JENNIFER
Re ason for Anti-Infec tive: Empiric Non-Surgic al Prophylaxi s
Durat ion of therapy: 7 days cephALEXin 2020-11- Yes [id number] 500mg Take 1 [facility] (KEFLEX) 0-09-23 [id number] capsule by it y of 500 mg 00:00: 04:59 mouth 3 [place] capsule 00 :00 (three) Medical times Branch daily for 10 days. Vital Signs Vital Name Observation Time Observation Value Comments Source Systolic blood 2021-09-12 16:27:10 124 mm[Hg] Univer sity of pressure [facility] Diastolic blood 2021-09-12 16:27:10 82 mm[facility]Hg] [facility] 2021-09-12 16:27:10 92 /min [facility] Body temperature 2021-09-12 16:27:10 36.61 Dinah [facility] Respiratory rate 2021-09-12 16:27:10 18 /min [facility] Body height 2021-09-12 15:33:00 175 cm [facility] Body weight 2021-09-12 15:33:00 70.308 kg [facility] BMI 2021-09-12 15:33:00 22.96 kg/m2 [facility] Oxygen saturation in 2021-09-12 15:33:00 97 /min [facility] Arterial blood by [facility] Pulse oximetry Branch Procedures Procedure Date / Time Performed Performing Clinician [facility] e ED LACERATION REPAIR 2021-09-12 18:05:33 Sanam Monique [facility] XR FINGERS 2 VW LEFT 2021-09-12 17:16:00 Sanam Monique [facility] CONSENT/REFUSAL FOR 2021-09-12 15:24:57 Doctor Unassigned, No Un [facility] DIAGNOSIS AND Name Medical Branch TREATMENT Encounters Start End Encounter Admission Attending Care Care Encounter Source Date/Time Date/Time Type Type Clinicians Facility Department ID 2021-09-12 2021-09-12 [id number] [facility] 10:38:00 13:37:00 Sanam Mena [id number] i ty [facility] [id number] [facility] [id number] [facility] 084 Branch 2021-09-12 2021-09-12 Emergency X MARCIA [facility] ERT [id number] Univers 10:38:00 13:37:00 SANAM briones of [facility] 2021-09-12 2021-09-12 Orders Doctor AKBAR [id number] Univers 00:00:00 00:00:00 Only Unassigned, WOOD [id number] ity of [place] [facility] [id number] [facility] [id number] [facility] 009 Branch Results This patient has no known results.
[2021-10-30] MEDS ORDERED: LIDOCAINE 1% MPF 5 ML VIAL ONE (19:26)
[2021-10-30] MEDS ORDERED: BUPIVACAINE 0.5% PF 10 ML VIAL ONE (19:26)
--- NOTE | 2021-10-30 19:27 | RAD REPORT ---
EXAM DESCRIPTION: - Finger-Thumb Left - 10/30/2021 7:07 pm CLINICAL HISTORY: laceration COMPARISON: No comparisons FINDINGS: Laceration to the thumb at the level of the proximal phalanx. No underlying fractures iden tified. No radiopaque foreign bodies. IMPRESSION: Soft tissue laceration to the thumb without underlying fracture or radiopaque foreign abbie dy.
--- NOTE | 2021-10-30 20:06 | EDPHYS ---
Physician Documentation [facility] Name: Denny Velez Jr Age: 50 yrs Sex: Male : 1970 Arrival Date: 10/30/2021 Time: 16:41 Bed 19 Private MD: ED Physician Karen Sorto HPI: 10/30 18:45 This 50 yrs old Male presents to ER via Ambulatory with complaints of Laceration - cp Finger. 18:45 The patient or guardian reports a laceration. The complaints affect the remy side cp proximal phalanx left thumb. Context: Patient reports he was using wood sheers when he accidently injured left thumb. 18:45 Onset: The symptoms/episode began/occurred today. Associated signs and symptoms: cp Pertinent negatives: cyanosis distally, numbness distally, heavy bleeding. Historical: - Allergies: 17:24 NKA; 5 - Home Meds: 17:24 None [Active]; 5 - PMHx: 17:24 None; [facility] - Immunization history:: Adult Immunizations up to date. - Social history:: Smoking status: Patient reports the use of cigarette tobacco products, smokes one pack cigarettes per day. ROS: 18:50 Skin: Positive for laceration(s), of the palmar aspect of proximal phalanx of left cp thumb. 18:50 Constitutional: Negative for body aches, chills, fever. cp 18:50 Neuro: Negative for numbness. 18:50 All other systems are negative. Exam: 19:00 Constitutional: The patient appears in no acute distress, alert, awake, well developed, cp well nourished. 19:00 Musculoskeletal/extremity: ROM: limited active range of motion, in the left thumb, cp Perfusion: the extremity is normally perfused throughout, Sensation intact. Tendon exam: specific tendon testing normal through active and passive range of motion 19:00 Skin: injury, laceration(s), of the palmar aspect of proximal phalanx of left thumb, that can be described as clean, no foreign body, linear, with mild bleeding. Vital Signs: 17:18 BP 115 / 82; Pulse 96; Resp 16; Temp 98.2; Pulse Ox 99% ; Weight 74.84 kg; Height 5 ft. jh5 9 in. (175.26 cm); 18:30 BP 139 / 91; Pulse 84; Resp 15; Pulse Ox 97% on R/A; ll3 19:47 Pulse 79; Resp 18; Pulse Ox 97% on R/A; ld1 17:18 Body Mass Index 24.37 (74.84 kg, 175.26 cm) jh5 Laceration: 20:03 Wound Repair of 3cm ( 1.2in ) subcutaneous laceration to remy side proximal phalanx cp left thumb. Linear shaped.. Distal neuro/vascular/tendon intact. Anesthesia: Wound infiltrated with 5 mls of Lido/Marcaine. Wound prep: Moderate cleansing by me, Wound irrigation by me. Skin closed with 5 4-0 Prolene using interrupted sutures and sterile technique. Dressed with Bacitracin, 4x4's. Patient tolerated well. MDM: 18:25 Patient medically screened. cp 20:04 Data reviewed: vital signs, nurses notes, radiologic studies, plain films. cp 20:04 Differential diagnosis: open fracture, tendon injury, simple laceration. Test cp interpretation: by ED physician or midlevel provider: plain radiologic studies. Counseling: I had a detailed discussion with the patient and/or guardian regarding: the historical points, exam findings, and any diagnostic results supporting the discharge/admit diagnosis, radiology results, the need for outpatient follow up, a family practitioner, to return to the emergency department if symptoms worsen or persist or if there are any questions or concerns that arise at home. Response to treatment: the patient's symptoms have markedly improved after treatment. 10/30 18:41 Order name: XRAY Finger-Thumb Left; Complete Time: 20:02 cp 10/30 20:02 Interpretation: Report reviewed. cp 10/30 19:22 Order name: Dressing - Wound; Complete Time: 19:38 cp 10/30 19:22 Order name: Gloves, Sterile; Complete Time: 19:27 cp 10/30 19:22 Order name: Setup Suture Tray; Complete Time: 19:27 cp 10/30 19:22 Order name: Wound Care: please clean and irrigate wound; Complete Time: 19:37 cp 10/30 20:03 Order name: Wound dressing; Complete Time: 20:15 cp Administered Medications: 19:46 Drug: Lidocaine (1 %) 10 ml {Note: Administered by JORDEN Sunshine.} Volume: 5 ml; ld1 Route: Infiltration; 19:46 Drug: Marcaine (bupivacaine) (0.5 %) 10 ml {Note: Administered by JORDEN Sunshine.} ld1 Volume: 10 ml; Route: Infiltration; Disposition: 20:15 Chart complete. cp 22:31 Co-signature as Attending Physician, Karen Sorto MD I agree with the assessment and sp3 plan of care. Disposition Summary: 10/30/21 20:05 Discharge Ordered Location: Home cp Problem: new cp Symptoms: have improved cp Condition: Stable cp Diagnosis - Laceration without foreign body of left thumb without damage to nail cp Followup: cp - With: Private Physician - When: 10 - 14 days - Reason: Staple/Suture removal Discharge Instructions: - Discharge Summary Sheet cp - Laceration Care, Adult cp Forms: - Medication Reconciliation Form cp - Thank You Letter cp - Antibiotic Education cp - Prescription Opioid Use cp Prescriptions: - Cephalexin 500 mg Oral Capsule - take 1 capsule by ORAL route every 8 hours for 10 days; 30 capsule; Refills: 0, cp Product Selection Permitted Signatures: Dispatcher [employer] [facility] Gilbert Sosa PA PA cp Brandy Jacobs, RN RN ld1 Karen Sorto MD MD sp3 Madison Black RN RN jh5 Corrections: (The following items were deleted from the chart) 20:15 20:03 Splint - Finger ordered. cp ld1 10/31 18:58 18:57 Skin: Positive for laceration(s), of the palmar aspect of proximal phalanx of cp left thumb, cp
--- NOTE | 2021-10-30 20:06 | ER ---
Nurse's Notes [facility] Name: Denny Velez Jr Age: 50 yrs Sex: Male : 1970 Arrival Date: 10/30/2021 Time: 16:41 Bed 19 Private MD: Diagnosis: Laceration without foreign body of left thumb without damage to nail Presentation: 10/30 17:18 Chief complaint: Patient states: using wood sheers and got my finger pretty good. [facility] Coronavirus screen: Vaccine status: Patient reports being unvaccinated. Client denies travel out of the [place] in the last 14 days. Ebola Screen: Patient negative for fever greater than or equal to 101.5 degrees Fahrenheit, and additional compatible Ebola Virus Disease symptoms Patient denies exposure to infectious person. Patient denies travel to an Ebola-affected area in the 21 days before illness onset. Complicating Factors: laceration. Initial Sepsis Screen: Does the patient meet any 2 criteria? HR > 90 bpm. Does the patient have a suspected source of infection? No. Patient's initial sepsis screen is negative. Risk Assessment: Do you want to hurt yourself or someone else? Patient reports no desire to harm self or others. Onset of symptoms was October 30, 2021. 17:18 Method Of Arrival: Ambulatory [facility] 17:18 Acuity: PRANEETH 3 jh5 Triage Assessment: 17:25 General: Appears in no apparent distress. slender, Behavior is calm, cooperative, jh5 appropriate for age. Pain: Complains of pain in left hand. Injury Description: Laceration sustained to left hand. Historical: - Allergies: 17:24 NKA; 5 - Home Meds: 17:24 None [Active]; 5 - PMHx: 17:24 None; 5 - Immunization history:: Adult Immunizations up to date. - Social history:: Smoking status: Patient reports the use of cigarette tobacco products, smokes one pack cigarettes per day. Screenin:25 Abuse screen: Denies threats or abuse. Denies injuries from another. Nutritional 5 screening: No deficits noted. Tuberculosis screening: No symptoms or risk factors identified. Fall Risk None identified. Assessment: 18:09 General: Appears in no apparent distress. comfortable, Behavior is calm, cooperative. ll3 Pain: Complains of pain in palmar aspect of distal phalanx of left thumb Pain does not radiate. Pain currently is 3 out of 10 on a pain scale. Pain began This morning Is continuous, Alleviated by rest, Aggravated by repositioning. Neuro: No deficits noted. Level of Consciousness is awake, alert, obeys commands, Oriented to person, place, time, situation, Speech is normal, Facial symmetry appears normal. Cardiovascular: Patient's skin is warm and dry. Respiratory: Airway is patent Respiratory effort is even, unlabored, Respiratory pattern is regular, symmetrical. Derm: Skin is pink, warm \T\ dry. Wound noted palmar aspect of distal phalanx of left thumb Reports pain that is 3 out of 10 on a pain scale. Musculoskeletal: Cut to left thumb. Injury Description: Laceration sustained to palmar aspect of distal phalanx of left thumb is not bleeding. Vital Signs: 17:18 BP 115 / 82; Pulse 96; Resp 16; Temp 98.2; Pulse Ox 99% ; Weight 74.84 kg; Height 5 ft. [facility] 9 in. (175.26 cm); 18:30 BP 139 / 91; Pulse 84; Resp 15; Pulse Ox 97% on R/A; ll3 19:47 Pulse 79; Resp 18; Pulse Ox 97% on R/A; ld1 17:18 Body Mass Index 24.37 (74.84 kg, 175.26 cm) [facility] ED Course: 16:41 Patient arrived in ED. ds1 17:24 Triage completed. 5 17:25 Arm band placed on right wrist. 5 17:25 Patient has correct armband on for positive identification. [facility] 18:05 Erica Melendez, ROSARIO is Primary Nurse. ll3 18:24 Gilbert Sosa PA is PHCP. cp 18:24 Karen Sorto MD is Attending Physician. cp 19:07 XRAY Finger-Thumb Left In Process Unspecified. EDMS 20:15 Assist provider with laceration repair using sutures. Set up tray. Performed by Gilbert LEONARDO. Patient did not have IV access during this emergency room visit. Administered Medications: 19:46 Drug: Lidocaine (1 %) 10 ml {Note: Administered by JORDEN Sunshine.} Volume: 5 ml; ld1 Route: Infiltration; 19:46 Drug: Marcaine (bupivacaine) (0.5 %) 10 ml {Note: Administered by JORDEN Sunshine.} ld1 Volume: 10 ml; Route: Infiltration; Outcome: 20:05 Discharge ordered by . cp 20:15 Discharged to home ambulatory. ld1 20:15 Condition: stable 20:15 Discharge instructions given to patient, Instructed on discharge instructions, follow up and referral plans. medication usage, Demonstrated understanding of instructions, follow-up care, medications, Prescriptions given X 1. 20:16 Patient left the ED. ld1 Signatures: Dispatcher [employer] [facility] Larissa Mondragon ds1 Gilbert Sosa PA PA cp Dibbern, Lauren RN RN ld1 Madison Black RN RN jh5 Erica Melendez RN RN ll3 Corrections: (The following items were deleted from the chart) 19:46 19:46 Marcaine (bupivacaine) (0.5 %) 10 ml 10 ml Infiltration 10 ml ld1 ld1
[2021-10-30 20:22] VITALS: TEMP 98.2
[2021-10-30 20:23] VITALS: BP 139/91; O2SAT 97
== END 2021-10-30 20:16 | disposition home or self-care (01) ==
LOC: ER 16:37
PROC: 0JQK0ZZ Repair Left Hand Subcutaneous Tissue and Fascia, Open Approach (ICD-10-PCS; principal; 2021-10-30)
DX: S61.012A Laceration without foreign body of left thumb without damage to nail, initial encounter (principal); W27.8XXA Contact with other nonpowered hand tool, initial encounter; F17.210 Nicotine dependence, cigarettes, uncomplicated
CPT/HCPCS: 99284

== ENCOUNTER 2024-09-01 06:24 | Inpatient (IN) | payer OTHER, SELFPAY ==
--- OUTSIDE RECORDS SUMMARY | 2024-09-01 06:28 | XMS REPORT | Continuity of Care Document ---
Author Name Unknown Address [address] [facility] [address] [place] [address] [facility] Address [address] [facility] 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 Name Role Phone Marcia Barrow Primary Care Physician Judith Michael RN Attending Clinician [phone] Toby Mitchell MD Attending Clinician Levon Bonilla MD Attending Clinician Pepe Ventura DO Attending Clinician [phone] Jonathan Benton Attending Clinician JONATHAN KENNEDY Attending Clinician Unavailable Lveon Bonilla MD Admitting Clinician [phone] JONATHAN KENNEDY Admitting Clinician Unavailable Payers Payer Name Policy Type Policy Number Effective Date Expirati on Date Source Problems Condition Name Condition Details Condition Category Status Onset Date Resolution Date Last Treatment Date Treating Clinician Comments Source Bacteremia due to Gram-negat zeke bacteria Bacteremia due to Gram-negat zeke bacteria Disease Active 04-24 00:00: 00 [facility] Generalize d abdominal pain Generalize d abdominal pain Disease Active 04-23 00:00: 00 [facility] No known active problems No known active problems Disease [facility] Allergies, Adverse Reactions, Alerts Allergy Name Allergy Type Status Severity Reaction(s) Onset Date Inactive Date Treating Clinician Comments Source NO KNOWN ALLERGIE S Drug Class Active [facility] Social History Social Habit Start Date Stop Date Quantity Comments Source Exposure to SARS-CoV-2 (event) Not sure [facility] Sexual orientation [facility] History of Social function 2024-04-26 00:00:00 2024-04-26 00:00:00 [facility] History of tobacco use 2021-03-22 00:00:00 Cigarette Smoker [facility] Sex assigned at 1970 00:00:00 1970 00:00:00 [facility] Smoking Status Start Date Stop Date Source Unknown if ever smoked [facility] Ex-smoker 2024-04-23 00:00:00 2024-04-23 00:00:00 [facility] Medications Ordered Medication Name Filled Medication Name Start Date Stop Date Current Medication? Ordering Clinician Indication Dosage Frequency Signature (SIG) Comments Components Source amoxicillin -clavulanat e 875-125 mg per tablet 04-26 00:00: 00 05-07 04:59 :00 No [id number] 1{tbl} Take 1 tablet by mouth in the morning and 1 tablet in the evening. Do all this for [address] [facility] lactobacill us acidophilus 04-26 00:00: 00 05-07 04:59 :00 No [id number] 8 .5mg Take 1 tablet by mouth in the morning for [address] [facility] piperacilli n-tazobacta m (ZOSYN) 3.375 g in NaCl 0.9% (NS) 100 mL MINI-BAG 04-24 22:49: 58 05-01 22:59 :00 No 3.375g 3.375 g, IV Piggyback, Q8H ABX, 21 doses, First dose on 04/24/24 at 1800, Last dose on 05/01/24 at 1000, Administer over 4 Hours, 100 mL, Reason for Anti-Infec tive: Documented Infection, Documented Infection Site: Blood, Duration of Therapy: [address] [facility] ipratropium -albuteroL (DUONEB) 0.5 mg-3 mg(2.5 mg base)/3 mL nebulizer solution 3 mL 04-24 21:15: 00 04-24 20:38 :00 No 3mL 3 mL, Inhalation , ONCE, 1 dose, On 04/24/24 at 1615, Routine [facility] furosemide (LASIX) injection 20 mg 04-24 21:15: 00 04-24 20:51 :00 No 20mg 20 mg, IV Push, ONCE, 1 dose, On 04/24/24 at 1615, Routine [facility] simethicone (GAS RELIEF (SIMETHICON E)) chewable tablet 80 mg 04-24 20:45: 00 Yes 80mg 80 mg, Oral, PC+HSPRN, Starting on 04/24/24 at 1545, Until Discontinu ed, Routine, Gas [facility] lactated ringers IV infusion 1,000 mL 04-24 04:15: 00 04-24 16:14 :00 No 1000mL at 150 mL/hr, 1,000 mL, IV Infusion, CONTINUOUS , Starting on 04/23/24 at 2315, Until 04/24/24 at 1114, Routine [facility] metroNIDAZO LE (FLAGYL) tablet 500 mg 04-24 04:00: 00 04-24 04:07 :00 No 500mg 500 mg, Oral, ONCE, 1 dose, On 04/23/24 at 2300, Routine, Reason for Anti-Infec tive: Empiric Therapy for Suspected Infection, Empiric Therapy Site: Abdominal, Duration of therapy: Once (ED) [facility] pantoprazol e (PROTONIX) injection 40 mg 04-24 03:15: 00 Yes 40mg 40 mg, Slow IV Push, Q12H, First dose on 04/23/24 at 2215, Until Discontinu ed [facility] simethicone (GAS RELIEF (SIMETHICON E)) chewable tablet 80 mg 04-24 03:15: 00 04-24 20:44 :36 No 80mg 80 mg, Oral, PC+HS, First dose on 04/23/24 at 2215, Until Discontinu ed, Routine [facility] NaCl 0.9% (NS) IV infusion 1,000 mL 04-24 01:00: 00 04-24 20:23 :08 No 1000mL at 125 mL/hr, IV Infusion, CONTINUOUS , Starting on 04/23/24 at 2000, Until 04/24/24 at 1523, Routine [facility] ondansetron (ZOFRAN (PF)) injection 4 mg 04-24 00:52: [address] [facility] acetaminoph en (TYLENOL) tablet 650 mg 04-24 00:52: [address] [facility] piperacilli n-tazobacta m (ZOSYN) 3.375 g in NaCl 0.9% (NS) 100 mL MINI-BAG 04-24 00:15: 00 04-24 01:37 :00 No 3.375g 3.375 g, IV Piggyback, ONCE, 1 dose, On [facility] 04/23/24 at 1915, Administer over 30 Minutes, 100 mL, Reason for Anti-Infec tive: Empiric Therapy for Suspected Infection, Empiric Therapy Site: Abdominal, Duration of therapy: Once (ED) [facility] iopamidol (ISOVUE 370-500 mL) injection 85 mL 04-23 22:00: 00 04-23 22:15 :00 No [id number] 85mL 85 mL, Intravenou s, ONCE, 1 dose, On [facility] 04/23/24 at 1715, Routine [facility] TAKE 2 TABLETS ON DAY 1 THEN TAKE 1 TABLET A DAY FOR 4 DAYS. 2-09 00:00: 00 Yes 250 Dante Laguerre TAKE 10 ML EVERY 6 TO 8 HOURS NEEDED FOR COUGH 2-05 00:00: 00 Yes [id number] Dante Laguerre TAKE 1 TABLET BY MOUTH AT BEDTIME NEEDED PAIN 2022-11 0-26 00:00: 00 Yes Dante Laguerre MELOXICAM 15 MG 2022-11 0-26 00:00: 00 Yes 15 Dante Laguerre TAKE 1 TABLET BID NEEDED 04-13 00:00: 00 01-01 00:00 :00 No 600 Dante Laguerre PREDNISONE 20 MG 02-22 00:00: 00 Yes 20 Dante Laguerre TAKE 10 ML EVERY 6 TO 8 HOURS NEEDED FOR COUGH 02-22 00:00: 00 01-01 00:00 :00 No [id number] Dante Laguerre TAKE 2 TABLETS ON DAY 1 THEN TAKE 1 TABLET A DAY FOR 4 DAYS. 02-22 00:00: 00 01-01 00:00 :00 No 250 Dante Laguerre INHALE 2 PUFFS EVERY 4-6 HOURS NEEDED. 02-22 00:00: 00 01-01 00:00 :00 No [id number] Dante Laguerre APPLY A SMALL AMOUNT 3 TIMES DAILY DIRECTED. 02-10 00:00: 00 01-01 00:00 :00 No 1 Dante Laguerre TAKE 1 TABLET EVERY 8 HOURS NEEDED. 02-10 00:00: 00 01-01 00:00 :00 No 800 Dante Laguerre BROMPHEN-PS E-DM 2-30-10 MG/5ML 2021-11 00:00: 00 Yes [id number] Dante Laguerre METHYLPREDN ISOLONE 4 MG DOSEPK 2021-11 00:00: 00 Yes 4 Dante Laguerer TAKE TABLETS BY MOUTH TAKE 2 DAY 1, AND 1 FOR 4 DAYS 06-06 00:00: 00 Yes 20 Dante Laguerre TAKE 1 CAPSULE BY MOUTH THREE TIMES A DAY NEEDED 06-06 00:00: 00 Yes 100 Dante Laguerre INHALE 2 PUFFS EVERY 4-6 HOURS NEEDED. 06-06 00:00: 00 Yes [id number] Dante Laguerre TAKE 1 TABLET BY MOUTH EVERY DAY 06-06 00:00: 00 No 500 TAKE 1 TABLET BY MOUTH TWICE A DAY 06-06 00:00: 00 No TAKE TABLETS BY MOUTH TAKE 2 DAY 1, AND 1 FOR 4 DAYS 06-06 00:00: 00 No 20 TAKE 1 CAPSULE BY MOUTH THREE TIMES A DAY NEEDED 06-06 00:00: 00 No 100 INHALE 2 PUFFS EVERY 4-6 HOURS NEEDED. 06-06 00:00: 00 No [id number] TAKE 1 TABLET BY MOUTH EVERY DAY 06-06 00:00: 00 Yes Dante Laguerre TAKE 1 TABLET BY MOUTH TWICE A DAY 06-06 00:00: 00 Yes Dante Laguerre amoxicillin 875 mg-potassiu m clavulanate 125 mg tablet 05-20 00:00: 00 Yes 1mg Dante Laguerre prednisone 20 mg tablet 05-20 00:00: 00 Yes mg Dante Laguerre Dose Unknown 05-20 00:00: 00 Yes Dante Laguerre TAKE 1 CAPSULE BY MOUTH 3 TIMES A DAY FOR 10 DAYS 05-20 00:00: 00 Yes Dante Laguerre TAKE 10 ML BY MOUTH EVERY 6 HOURS NEEDED FOR COUGH. 05-20 00:00: 00 Yes Dante Laguerre Dose Unknown 05-20 00:00: 00 Yes Dante Laguerre amoxicillin 875 mg-potassiu m clavulanate 125 mg tablet 05-20 00:00: 00 No 1mg prednisone 20 mg tablet 05-20 00:00: 00 No mg Dose Unknown 05-20 00:00: 00 No TAKE 1 CAPSULE BY MOUTH 3 TIMES A DAY FOR 10 DAYS 05-20 00:00: 00 No TAKE 10 ML BY MOUTH EVERY 6 HOURS NEEDED FOR COUGH. 05-20 00:00: 00 No Dose Unknown 05-20 00:00: 00 No Dose Unknown 11-28 00:00: 00 Yes Dante Laguerre metformin 500 mg tablet 11-28 00:00: 00 No 1mg valacyclovi r 1 gram tablet 2020-11 00:00: 00 Yes 1gram Dante Laguerre gabapentin 100 mg capsule 2020-11 00:00: 00 Yes 1mg Dante Laguerre valacyclovi r 1 gram tablet 2020-11 00:00: 00 No 1gram gabapentin 100 mg capsule 2020-11 00:00: 00 No 1mg Bromfed DM 2 mg-30 mg-10 mg/5 mL oral syrup 2020-11 00:00: 00 Yes 10mg/5 mL Dante Laguerre Bromfed DM 2 mg-30 mg-10 mg/5 mL oral syrup 2020-11 00:00: 00 No 10mg/5 mL cephALEXin (KEFLEX) capsule 500 mg 2020-11 19:15: 00 09-12 18:27 :00 No 500mg 500 mg, Oral, ONCE, 1 dose, On Danielle 09/12/21 at 1415, JENNIFER
Re ason for Anti-Infec tive: Empiric Non-Surgic al Prophylaxi s
Durat ion of therapy: [address] [facility] cephALEXin (KEFLEX) 500 mg capsule 2020-11 00:00: 00 09-23 04:59 :00 No [id number] 500mg Take 1 capsule by mouth 3 (three) times daily for [address] [facility] ProAir HFA 90 mcg/actuati on aerosol inhaler 12-31 00:00: 00 Yes 2mcg/ac tuation Dante Laguerre ProAir HFA 90 mcg/actuati on aerosol inhaler 12-31 00:00: 00 No 2mcg/ac tuation Mucinex 600 mg tablet, extended release 12-23 00:00: 00 Yes 1mg Dante Laguerre fluticasone propionate 50 mcg/actuati on nasal spray,suspe nsion 12-23 00:00: 00 Yes 2mcg/ac tuation Dante Laguerre ProAir HFA 90 mcg/actuati on aerosol inhaler 12-23 00:00: 00 Yes 2mcg/ac tuation Dante Laguerre loratadine 10 mg tablet 12-23 00:00: 00 Yes 1mg Dante Laguerre prednisone 20 mg tablet 12-23 00:00: 00 Yes 2mg Dante Laguerre promethazin e-phenyleph rine 6.25 mg-5 mg/5 mL oral syrup 12-23 00:00: 00 Yes 5mg/5 mL Dante Laguerre Mucinex 600 mg tablet, extended release 12-23 00:00: 00 No 1mg fluticasone propionate 50 mcg/actuati on nasal spray,suspe nsion 12-23 00:00: 00 No 2mcg/ac tuation ProAir HFA 90 mcg/actuati on aerosol inhaler 12-23 00:00: 00 No 2mcg/ac tuation loratadine 10 mg tablet 12-23 00:00: 00 No 1mg prednisone 20 mg tablet 12-23 00:00: 00 No 2mg promethazin e-phenyleph rine 6.25 mg-5 mg/5 mL oral syrup 12-23 00:00: 00 No 5mg/5 mL Bactrim DS 800 mg-160 mg tablet 02-13 00:00: 00 Yes 1mg Dante Laguerre Bactrim DS 800 mg-160 mg tablet 02-13 00:00: 00 No 1mg Vital Signs Vital Name Observation Time Observation Value Comments S ource Systolic blood pressure 2024-04-26 16:17:00 128 mm[Hg] [facility] Diastolic blood pressure 2024-04-26 16:17:00 72 mm[Hg] [facility] Heart rate 2024-04-26 16:17:00 74 /min [facility] Body temperature 2024-04-26 16:17:00 36.5 Dinah [facility] Respiratory rate 2024-04-26 16:17:00 18 /min [facility] Oxygen saturation in Arterial blood by Pulse oximetry 2024-04-26 16:17:00 93 /min [facility] Body weight 2024-04-26 08:12:00 81.965 kg [facility] BMI 2024-04-26 08:12:00 26.67 kg/m2 [facility] Body height 2024-04-24 02:29:00 175.3 cm [facility] Systolic blood pressure 2021-09-12 16:27:10 124 mm[Hg] [facility] Diastolic blood pressure 2021-09-12 16:27:10 82 mm[Hg] [facility] Heart rate 2021-09-12 16:27:10 92 /min [facility] Body temperature 2021-09-12 16:27:10 36.61 Dinah [facility] Respiratory rate 2021-09-12 16:27:10 18 /min [facility] Body height 2021-09-12 15:33:00 175 cm [facility] Body weight 2021-09-12 15:33:00 70.308 kg [facility] BMI 2021-09-12 15:33:00 22.96 kg/m2 [facility] Oxygen saturation in Arterial blood by Pulse oximetry 2021-09-12 15:33:00 97 /min [facility] BP Systolic 2024-06-07 15:45:00 128 mm[Hg] Step [facility] BP Diastolic 2024-06-07 15:45:00 88 mm[Hg] [place] [facility] Weight Measured 2024-06-07 15:45:00 179.50 pounds Dante F [facility] Height Measured 2024-06-07 15:45:00 68.00 inches Dante F [facility] Body Temperature 2024-06-07 15:45:00 99.70 degrees Dante F [facility] Heart Rate 2024-06-07 15:45:00 102.00 /min [facility] Respiratory Rate 2024-06-07 15:45:00 Dante F [facility] BP Systolic 2024-05-05 15:34:00 130 mm[Hg] Step [facility] BP Diastolic 2024-05-05 15:34:00 81 mm[Hg] [place] [facility] Weight Measured 2024-05-05 15:34:00 181.80 pounds Dante F [facility] Height Measured 2024-05-05 15:34:00 68.00 inches Dante F [facility] Body Temperature 2024-05-05 15:34:00 98.20 degrees Dante F [facility] Heart Rate 2024-05-05 15:34:00 90.00 /min Joann en F [facility] Respiratory Rate 2024-05-05 15:34:00 18.00 /min Dante F [facility] BP Systolic 2023-12-28 13:38:00 Step hen F [facility] BP Diastolic 2023-12-28 13:38:00 [place] [facility] Weight Measured 2023-12-28 13:38:00 Dante F Sh[facility] Height Measured 2023-12-28 13:38:00 Dante F [facility] Body Temperature 2023-12-28 13:38:00 Dante F [facility] Heart Rate 2023-12-28 13:38:00 Joann en F [facility] Respiratory Rate 2023-12-28 13:38:00 Dante F [facility] BP Systolic 2023-04-13 15:43:00 121 mm[Hg] Step hen [facility] BP Diastolic 2023-04-13 15:43:00 82 mm[Hg] [place] [facility] Weight Measured 2023-04-13 15:43:00 178.60 pounds Dante F [facility] Height Measured 2023-04-13 15:43:00 68.00 inches Dante F [facility] Body Temperature 2023-04-13 15:43:00 97.80 degrees Dante F [facility] Heart Rate 2023-04-13 15:43:00 86.00 /min Joann en F [facility] Respiratory Rate 2023-04-13 15:43:00 Dante F Shade BP Systolic 2023-02-25 09:11:00 120 mm[Hg] Step hen [facility] BP Diastolic 2023-02-25 09:11:00 85 mm[Hg] [place] [facility] Weight Measured 2023-02-25 09:11:00 171.00 pounds Dante F Shade Height Measured 2023-02-25 09:11:00 68.00 inches Dante F [facility] Body Temperature 2023-02-25 09:11:00 98.00 degrees Dante F Shade Heart Rate 2023-02-25 09:11:00 102.00 /min Step hen [facility] Respiratory Rate 2023-02-25 09:11:00 20.00 /min Dante F [facility] BP Systolic 2023-02-10 14:59:00 130 mm[Hg] Step hen [facility] BP Diastolic 2023-02-10 14:59:00 83 mm[Hg] [place] [facility] Weight Measured 2023-02-10 14:59:00 174.00 pounds Dante F Shade Height Measured 2023-02-10 14:59:00 68.00 inches Dante F [facility] Body Temperature 2023-02-10 14:59:00 98.10 degrees Dante F [facility] Heart Rate 2023-02-10 14:59:00 102.00 /min Step [facility] Respiratory Rate 2023-02-10 14:59:00 18.00 /min Dante F [facility] BP Systolic 2023-01-29 14:40:00 138 mm[Hg] Step [facility] BP Diastolic 2023-01-29 14:40:00 78 mm[Hg] [place] [facility] Weight Measured 2023-01-29 14:40:00 175.60 pounds Dante F Shade Height Measured 2023-01-29 14:40:00 68.00 inches Dante F [facility] Body Temperature 2023-01-29 14:40:00 98.20 degrees Dante F [facility] Heart Rate 2023-01-29 14:40:00 89.00 /min Joann en F [facility] Respiratory Rate 2023-01-29 14:40:00 18.00 /min Dante F [facility] BP Systolic 2022-10-24 10:32:00 136 mm[Hg] Step hen [facility] BP Diastolic 2022-10-24 10:32:00 86 mm[Hg] [place] [facility] Weight Measured 2022-10-24 10:32:00 171.80 pounds Dante F Shade Height Measured 2022-10-24 10:32:00 68.00 inches Dante F [facility] Body Temperature 2022-10-24 10:32:00 98.30 degrees Dante F Shade Heart Rate 2022-10-24 10:32:00 97.00 /min Joann en F [facility] Respiratory Rate 2022-10-24 10:32:00 18.00 /min Dante F [facility] BP Systolic 2022-05-20 09:45:00 131 mm[Hg] Step hen [facility] BP Diastolic 2022-05-20 09:45:00 86 mm[Hg] [place] [facility] Weight Measured 2022-05-20 09:45:00 166.60 pounds Dante F Shade Height Measured 2022-05-20 09:45:00 68.00 inches Dante F Shade Body Temperature 2022-05-20 09:45:00 98.40 degrees Dante F Shade Heart Rate 2022-05-20 09:45:00 79.00 /min Joann en [facility] Respiratory Rate 2022-05-20 09:45:00 Dante F Shade BP Systolic 2021-12-26 11:53:00 112 mm[Hg] Step [facility] BP Diastolic 2021-12-26 11:53:00 67 mm[Hg] [place] [facility] Weight Measured 2021-12-26 11:53:00 156.00 pounds Dante F [facility] Height Measured 2021-12-26 11:53:00 68.00 inches Dante F Shade Body Temperature 2021-12-26 11:53:00 98.30 degrees Dante F Shade Heart Rate 2021-12-26 11:53:00 83.00 /min Joann en F [facility] Respiratory Rate 2021-12-26 11:53:00 Dante F Shade BP Systolic 2021-11-26 15:40:00 120 mm[Hg] Step [facility] BP Diastolic 2021-11-26 15:40:00 85 mm[Hg] [place] [facility] Weight Measured 2021-11-26 15:40:00 165.40 pounds Dante F Shade Height Measured 2021-11-26 15:40:00 68.00 inches Dante Laguerre Body Temperature 2021-11-26 15:40:00 98.40 degrees Dante F Shade Heart Rate 2021-11-26 15:40:00 90.00 /min Joann en F [facility] Respiratory Rate 2021-11-26 15:40:00 16.00 /min Dante F [facility] BP Systolic 2021-11-18 15:49:00 131 mm[Hg] BP Diastolic 2021-11-18 15:49:00 72 mm[Hg] Weight Measured 2021-11-18 15:49:00 165.40 pounds Height Measured 2021-11-18 15:49:00 68.00 inches Body Temperature 2021-11-18 15:49:00 98.20 degrees Heart Rate 2021-11-18 15:49:00 95.00 /min Respiratory Rate 2021-11-18 15:49:00 BP Systolic 2021-09-24 16:16:00 125 mm[Hg] BP Diastolic 2021-09-24 16:16:00 85 mm[Hg] Weight Measured 2021-09-24 16:16:00 163.00 pounds Height Measured 2021-09-24 16:16:00 68.00 inches Body Temperature 2021-09-24 16:16:00 98.10 degrees Heart Rate 2021-09-24 16:16:00 97.00 /min Respiratory Rate 2021-09-24 16:16:00 16.00 /min BP Systolic 2018-12-23 14:30:00 120 mm[Hg] BP Diastolic 2018-12-23 14:30:00 73 mm[Hg] Weight Measured 2018-12-23 14:30:00 162.40 pounds Height Measured 2018-12-23 14:30:00 68.00 inches Body Temperature 2018-12-23 14:30:00 98.10 degrees Heart Rate 2018-12-23 14:30:00 105.00 /min Respiratory Rate 2018-12-23 14:30:00 16.00 /min BP Systolic 2016-02-14 09:42:00 132 mm[Hg] BP Diastolic 2016-02-14 09:42:00 82 mm[Hg] Weight Measured 2016-02-14 09:42:00 139.40 pounds Height Measured 2016-02-14 09:42:00 68.00 inches Body Temperature 2016-02-14 09:42:00 97.40 degrees Heart Rate 2016-02-14 09:42:00 88.00 /min Respiratory Rate 2016-02-14 09:42:00 16.00 /min BP Systolic 2016-02-14 09:38:00 132 mm[Hg] BP Diastolic 2016-02-14 09:38:00 82 mm[Hg] Weight Measured 2016-02-14 09:38:00 139.40 pounds Height Measured 2016-02-14 09:38:00 68.00 inches Body Temperature 2016-02-14 09:38:00 97.40 degrees Heart Rate 2016-02-14 09:38:00 88.00 /min Respiratory Rate 2016-02-14 09:38:00 16.00 /min Procedures Procedure Date / Time Performed Performing Clinician Source HEPATIC FUNCTION PANEL (04024) (ALB,T.PRO,BILI T,BU/BC,ALT,AST,ALK PHOS) 2024-04-26 09:00:00 Jonathan Luciano [facility] BASIC METABOLIC PANEL (NA, K, CL, CO2, GLUCOSE, BUN, CREATININE, CA) 2024-04-26 09:00:00 Mustapha Jonathan [facility] CBC WITH DIFF 2024-04-26 09:00:00 MustaphaJonathan [facility] BASIC METABOLIC PANEL (NA, K, CL, CO2, GLUCOSE, BUN, CREATININE, CA) 2024-04-25 09:34:00 MustaphaAshutoshya [facility] CBC WITH DIFF 2024-04-25 09:34:00 Mustapha [facility] BLOOD CULTURE SCREEN 2024-04-24 23:45:00 Kassandra Bonilla i [facility] PROCALCITONIN 2024-04-24 20:58:00 Mustapha [facility] POCT GLUCOSE (AUTOMATED) 2024-04-24 16:30:00 Desi Bonilla [facility] OCCULT (GUAIAC) BLOOD 2024-04-24 14:44:00 Rene Hamilton [facility] HEPATIC FUNCTION PANEL (81842) (ALB,T.PRO,BILI T,BU/BC,ALT,AST,ALK PHOS) 2024-04-24 09:54:00 Levon Bonilla [facility] BASIC METABOLIC PANEL (NA, K, CL, CO2, GLUCOSE, BUN, CREATININE, CA) 2024-04-24 09:54:00 Levon Bonilla [facility] CBC WITH DIFF 2024-04-24 09:54:00 Levon Bonilla [facility] URINALYSIS MICROSCOPIC 2024-04-24 04:03:00 Mary Hamilton [facility] SALICYLATE 2024-04-24 03:07:[address] [facility] 2024-04-24 03:07:00 Mary Hamilton [facility] BLOOD CULTURE SCREEN 2024-04-24 00:43:00 Des Mitchell [facility] BLOOD CULTURE WORKUP 2024-04-24 00:43:00 Des Mitchell [facility] BLOOD CULTURE SCREEN 2024-04-24 00:38:00 Des Mitchell [facility] BLOOD CULTURE WORKUP 2024-04-24 00:38:00 Des Mitchell [facility] GRAM NEGATIVE BLOOD PATHOGENS DNA PROBE-AEROBIC 2024-04-24 00:38:00 Toby Mitchell [facility] XR CHEST 1 VW 2024-04-24 00:06:43 Toby Mitchell [facility] CT ABDOMEN PELVIS W CONTRAST 2024-04-23 22:09:00 Toby Mitchell [facility] LIPASE 2024-04-23 21:29:00 Toby Mitchell [facility] TROPONIN I 2024-04-23 21:29:00 [facility] COMP. METABOLIC PANEL (04970) 2024-04-23 21:29:00 Toby Mitchell [facility] ETHANOL 2024-04-23 21:29:[address] [facility] CBC WITH DIFF 2024-04-23 21:29:00 Toby Mitchell [facility] URINALYSIS 2024-04-23 21:29:00 Toby Mitchell [facility] N-TERMINAL PRO-BNP 2024-04-23 21:29:00 Toby Mitchell [facility] LACTIC ACID WHOLE BLOOD 2024-04-23 21:27:00 Do augusto Mitchell [facility] HB ECG ROUTINE & RHYTHM STRIP 2024-04-23 21:24:06 Toby Mitchell [facility] ED LACERATION REPAIR 2021-09-12 18:05:33 Jonathan Kennedy [facility] XR FINGERS 2 VW LEFT 2021-09-12 17:16:00 Jonathan Kennedy [facility] Plan of Care Planned Activity Planned Date Details Comments Source Goal Plan of Care Note [code = 72731-7] Goal Plan of Care Note [code = 31677-5] Goal Plan of Care Note [code = 78588-6] Goal Plan of Care Note [code = 33353-0] Goal Plan of Care Note [code = 41651-0] Goal Plan of Care Note [code = 69039-4] Goal Plan of Care Note [code = 18958-2] Goal Plan of Care Note [code = 67080-7] Goal Plan of Care Note [code = 17895-9] Goal Plan of Care Note [code = 95932-9] Goal Plan of Care Note [code = 46774-0] Goal Plan of Care Note [code = 07877-7] Goal Plan of Care Note [code = 78652-0] Goal Plan of Care Note [code = 59482-7] Goal Plan of Care Note [code = 63327-4] Goal Plan of Care Note [code = 19382-0] Goal Plan of Care Note [code = 04208-7] Goal Plan of Care Note [code = 85288-1] Goal Plan of Care Note [code = 03686-8] Goal Plan of Care Note [code = 53020-9] Goal Plan of Care Note [code = 27344-3] Goal Plan of Care Note [code = 26794-2] Goal Plan of Care Note [code = 38402-3] Goal Plan of Care Note [code = 32876-4] Goal Plan of Care Note [code = 30100-2] Goal Plan of Care Note [code = 44793-7] Goal Plan of Care Note [code = 31838-1] Encounters Start Date/Time End Date/Time Encounter Type Admission Type Attending [facility] Facility Care Department Encounter ID Source 2024-06-08 13:05:29 2024-06-08 13:05:29 Outpatient [facility] [id number] Dante Laguerre 2024-06-07 15:37:20 2024-06-07 15:37:20 Outpatient [facility] [id number] Dante Laguerre 2024-06-07 00:00:00 2024-06-07 00:00:00 Outpatient Visit [facility] [id number] Dante Laguerre 2024-05-05 15:42:10 2024-05-05 15:42:10 Outpatient [facility] [id number] Dante Laguerre 2024-05-05 00:00:00 2024-05-05 00:00:00 Outpatient Visit [facility] [id number] Dante Laguerre 2024-04-27 00:00:00 2024-04-27 11:52:17 Transition of Care Judith Michael [id number]..[id number] [facility] 2024-04-23 16:18:00 2024-04-26 15:21:00 Hospital Encounter Toby Mitchell, Pepe Bautista [facility] 1..840.114 350.1.13.10 [id number] [facility] 2023-12-28 13:29:31 2023-12-28 13:29:31 Outpatient S[facility] SFA [id number] Dante Laguerre 2023-04-13 15:31:34 2023-04-13 15:31:34 Outpatient SFA SFA 0522 Dante Crawford [place] 2023-03-10 08:08:32 2023-03-10 08:08:32 Outpatient SFA SFA 0418 Dante Crawford [place] 2023-03-09 16:13:40 2023-03-09 16:13:40 Outpatient SFA SFA 0417 Dante Crawford [place] 2023-02-25 08:56:48 2023-02-25 08:56:48 Outpatient SFA SFA 0405 Dante Crawford [place] 2023-02-10 14:53:26 2023-02-10 14:53:26 Outpatient SFA SFA 0321 Dante Crawford [place] 2023-01-29 14:35:35 2023-01-29 14:35:35 Outpatient SFA SFA 0309 Dante Crawford [place] 2022-10-24 10:26:01 2022-10-24 10:26:01 Outpatient SFA SFA 1202 Dante Crawford [place] 2022-06-06 00:00:00 2022-06-06 00:00:00 Outpatient Visit 24or7ple- [id number] 19fabd 2022-05-20 00:00:00 2022-05-20 00:00:00 Outpatient Visit [id number] 2021-09-12 10:38:00 2021-09-12 13:37:00 Emergency Jonathan Kennedy S [facility] [id number] [facility] 2021-09-12 10:38:00 2021-09-12 13:37:00 Emergency X JONATHAN KENNEDY [facility] ERT [id number] [facility] Results Test Description Test Time Test Comments Results Result Co mments Source [facility]ENS DNA [id number] 05:16:59* Test Item Value Reference Range Interpretation Comme nts Blood Pathogens by DNA Comment (test code = 64666-7) No organisms included in the Blood DNA Probe test panel were detected. Further identification workup to be performed by culture testing methods. AKOSUA (test code = AKOSUA) See blood culture result for additional information. ?Testing included eight identification and six resistance marker targets. [facility]2024-04-24 16:37:52* Test Item Value Reference Range Interpretation Comme nts POCT GLU (test code = 7517633241) 145 mg/dL 70-110 H Lab Interpretation (test cod e = 27738-5) [facility]normal [facility] 1 [id number] 00:25:43EXAM:XR CHEST 1 VW HISTORY: 53 years-old Male; Indication for study: pneumonia COMPARISON: None TECHNIQUE: Frontal chest radiograph was obtained. FINDINGS: Lungs/Pleura: Adequate lung volume. ?The lungs are clear with no focalconsolidation. There is no pleural effusion or pneumothorax. Heart/Mediastinum: The cardiomediastinal silhouette is normal. ? Bones and soft tissues: No acute abnormality detected. [facility] W [id number] 23:38:15Exam: CT Abdomen and Pelvis with contrast, 04/23/2024 5:00 PM. Ordering Physician: TOBY MITCHELL. History: Abdominal abscess/infection suspected . Comparison: None. Technique: CT abdomen and pelvis was obtained with intravenous contrast. CTwas performed according to ALARA (As Low As Reasonably Achievable). Technical Quality: Adequate. Findings: LOWER CHEST:Patchy groundglass opacities in the rightlower lobe. ABDOMEN/PELVIS:Liver: Normal.Gallbladder/biliary: Normal gallbladder. No biliary ductaldilation.Pancreas: Normal.Spleen: Normal. Adrenal glands: Normal.Kidneys and ureters: Normal.Bladder: Suggested circumferential bladder wall thickening.Reproductive organs: Normal for age. Stomach/bowel: Small hiatal hernia. No bowel obstruction. No bowel wallthickening. Normal appendix. Lymph nodes: No lymphadenopathy.Peritoneum: No organized fluid collection or free air.Vessels: Unremarkable. MUSCULOSKELETAL:Bones: No acute osseous abnormality.Soft tissues: Small fat-containing umbilical hernia. [facility] HospitalL[facility] Acid Whole [id number] 21:35:39* Test Item Value Reference Range Interpretation Comme nts LACTIC ACID (test code = 5305413243) 1.09 mmol/L 0.50-2.20 Lab Interpretation (test cod e = 29297-3) Normal [facility] (BREATH)2023-03-11 14:25:38* Test Item Value Reference Range Interpretation Comme nts H. PYLORI (BREATH) (test code = 71446) NEGATIVE NEGATIVE [facility] has important pathology staff changes effective 01/21/2023. New pathology staff will provide uninterrupted, excellent patient care and clinical consultation. See URL: [email or web address]. UNLESS OTHERWISE INDICATED, ALL TESTING PERFORMED AT [facility] [address] [place] [id number] VEGETABLE SCULLION: JUNITO CHILEL M.D. CLIA NUMBER [id number] [facility] [place]. [id number] H. PYLORI (BREATH)2023-03-11 00:00:00* Test Item Value Reference Range Interpretation Comme nts H. PYLORI (BREATH) (test cod e = 81927) NEGATIVE Dante LaguerreH. PYLORI (BREATH)2023-03-11 00:00:00* Test Item Value Reference Range Interpretation Comme nts H. PYLORI (BREATH) (test cod e = 91069) NEGATIVE Dante LaguerreC-REACTIVE [id number] 00:00:00* Test Item Value Reference Range Interpretation Comme nts C-REACTIVE PROTEIN (test cod e = 3513) 11.9 MG/DL Dante LaguerreC-REACTIVE [id number] 00:00:00* Test Item Value Reference Range Interpretation Comme nts C-REACTIVE PROTEIN (test cod e = 3513) 11.9 MG/DL Dante LaguerreANA (ANTI-NUCLEAR AB) WITH REFLEX [id number] 00:00:00* Test Item Value Reference Range Interpretation Comme nts ANTI-NUCLEAR ANTIBODIES (lyndsay t code = 3506) NEGATIVE RAMAKRISHNA PATTERN (REPORTED TITER) (test code = 25172) SEE BELOW HOMOGENEOUS (test code = 67702) NEGATIVE TITER SPECKLED (test code = 553471) NEGATIVE TITER DENSE FINE SPECKLED (test co de = 87251) NEGATIVE TITER CENTROMERE (test code = 538965) NEGATIVE TITER COARSE SPECKLED (test code = 383490) NEGATIVE TITER DISCRETE NUCLEAR DOTS (test code = 670753) NEGATIVE TITER NUCLEOLAR (test code = 127429) NEGATIVE TITER NUCLEAR MEMBRANE (test code = 234312) NEGATIVE TITER CYTO. RETICULAR (GLENN) (test code = 141739) NEGATIVE COMMENTS (test code = 234930) NONE METHOD (test code = 70880) (NOTE) Dante Benavidez (ANTI-NUCLEAR AB) WITH REFLEX [id number] 00:00:00* Test Item Value Reference Range Interpretation Comme nts ANTI-NUCLEAR ANTIBODIES (lyndsay t code = 3506) NEGATIVE RAMAKRISHNA PATTERN (REPORTED TITER) (test code = 03009) SEE BELOW HOMOGENEOUS (test code = 36577) NEGATIVE TITER SPECKLED (test code = 142438) NEGATIVE TITER DENSE FINE SPECKLED (test co de = 83708) NEGATIVE TITER CENTROMERE (test code = 289643) NEGATIVE TITER COARSE SPECKLED (test code = 520573) NEGATIVE TITER DISCRETE NUCLEAR DOTS (test code = 990084) NEGATIVE TITER NUCLEOLAR (test code = 057870) NEGATIVE TITER NUCLEAR MEMBRANE (test code = 706980) NEGATIVE TITER CYTO. RETICULAR (GLENN) (test code = 712456) NEGATIVE COMMENTS (test code = 668069) NONE METHOD (test code = 42635) (NOTE) Dante LaguerreCOMPREHENSIVE METABOLIC [id number] 00:00:00* Test Item Value Reference Range Interpretation Comme nts GLUCOSE (test code = 2217) 157 MG/DL BUN (test code = 2208) 21 MG/DL CREATININE (test code = 2214) 0.79 MG/DL eGFR (2020 CKD-EPI) (test code = 54138) 106 ML/MIN/1.73 CALC BUN/CREAT (test code = 2235) 27 RATIO SODIUM (test code = 2231) 145 MEQ/L POTASSIUM (test code = 2228) 4.0 MEQ/L CHLORIDE (test code = 2215) 106 MEQ/L CARBON DIOXIDE (test code = 2206) 29 MEQ/L CALCIUM (test code = 2209) 9.6 MG/DL PROTEIN, TOTAL (test code = 2229) 7.2 G/DL ALBUMIN (test code = 2201) 4.7 G/DL CALC GLOBULIN (test code = 2240) 2.5 G/DL CALC A/G RATIO (test code = 2234) 1.9 RATIO BILIRUBIN, TOTAL (test code = 2207) 0.4 MG/DL ALKALINE PHOSPHATASE (test code = 2204) 69 U/L AST (test code = 2218) 48 U/L ALT (test code = 2219) 71 U/L Dante Crawford AustinSEDIMENTATION [id number] 00:00:00* Test Item Value Reference Range Interpretation Comme nts SEDIMENTATION RATE (test cod e = 1017) 5 MM/HOUR Dante Crawford AustinC-REACTIVE [id number] 00:00:00* Test Item Value Reference Range Interpretation Comme nts C-REACTIVE PROTEIN (test cod e = 3513) 1.4 MG/DL Dante Crawford AustinURIC [id number] 00:00:00* Test Item Value Reference Range Interpretation Comme nts URIC ACID (test code = 2233) 5.4 MG/DL Dante LaguerreCOMPREHENSIVE METABOLIC [id number] 00:00:00* Test Item Value Reference Range Interpretation Comme nts GLUCOSE (test code = 2217) 157 MG/DL BUN (test code = 2208) 21 MG/DL CREATININE (test code = 2214) 0.79 MG/DL eGFR (2020 CKD-EPI) (test code = 77954) 106 ML/MIN/1.73 CALC BUN/CREAT (test code = 2235) 27 RATIO SODIUM (test code = 2231) 145 MEQ/L POTASSIUM (test code = 2228) 4.0 MEQ/L CHLORIDE (test code = 2215) 106 MEQ/L CARBON DIOXIDE (test code = 2206) 29 MEQ/L CALCIUM (test code = 2209) 9.6 MG/DL PROTEIN, TOTAL (test code = 2229) 7.2 G/DL ALBUMIN (test code = 220) 4.7 G/DL CALC GLOBULIN (test code = 2240) 2.5 G/DL CALC A/G RATIO (test code = 2234) 1.9 RATIO BILIRUBIN, TOTAL (test code = 7) 0.4 MG/DL ALKALINE PHOSPHATASE (test code = 4) 69 U/L AST (test code = 2218) 48 U/L ALT (test code = 221) 71 U/L Dante Crawford AustinSEDIMENTATION [id number] 00:00:00* Test Item Value Reference Range Interpretation Comme nts SEDIMENTATION RATE (test cod e = 1017) 5 MM/HOUR Dante Crawford AustinC-REACTIVE [id number] 00:00:00* Test Item Value Reference Range Interpretation Comme nts C-REACTIVE PROTEIN (test cod e = 3513) 1.4 MG/DL Dante Crawford AustinURIC [id number] 00:00:00* Test Item Value Reference Range Interpretation Comme nts URIC ACID (test code = 2233) 5.4 MG/DL Dante Crawford MerrillHEMOGLOBIN [id number] 06:01:32* Test Item Value Reference Range Interpretation Comme nts HEMOGLOBIN A1c (test code = 54437) 6.4 % 4.2-5.6 H UNLESS OTHERWISE INDICATED, [facility] TESTING [facility]MED [facility] [address] [place] [id number] VEGETABLE SCULLION: COOKIE GÓMEZ M.D. CLIA NUMBER [id number] [place]. [id number] HEMOGLOBIN [id number] 00:00:00* Test Item Value Reference Range Interpretation Comme nts HEMOGLOBIN A1c (test code = 83962) 6.4 % Dante LaguerreHEMOGLOBIN [id number] 00:00:00* Test Item Value Reference Range Interpretation Comme nts HEMOGLOBIN A1c (test code = 10460) 6.4 % HEMOGLOBIN [id number] 00:00:00* Test Item Value Reference Range Interpretation Comme nts HEMOGLOBIN A1c (test code = 67504) 6.4 % HEMOGLOBIN [id number] 00:00:00* Test Item Value Reference Range Interpretation Comme nts HEMOGLOBIN A1c (test code = 18350) 6.4 % Dante LaguerreCOMPREHENSIVE METABOLIC [id number] 04:44:25* Test Item Value Reference Range Interpretation Comme nts GLUCOSE (test code = 2217) 144 MG/DL 70-99 H BUN (test code = 8) 15 MG/DL 6-20 CREATININE (test code = 2214) 0.78 MG/DL 0.80-1.40 L EFFECTIVE 2020, [facility] HAS IMPLEMENTED THE NKF-ASN RECOMMENDED KD-EPI EGFR REFIT CALCULATION THAT DOES NOT INCLUDE A COEFFICIENT FORRACE. FOR MORE INFORMATION, SEE ANNOUNCEMENT [email or web address] eGFR (2020 CKD-EPI) (test code = 94774) 107 ML/MIN/1.73 >60 CALC BUN/CREAT (test code = 2235) 19 RATIO 6-28 SODIUM (test code = 223) 141 MEQ/L 133-146 POTASSIUM (test code = 2228) 4.4 MEQ/L 3.5-5.4 CHLORIDE (test code = 2215) 101 MEQ/L 95-107 CARBON DIOXIDE (test code = 2206) 26 MEQ/L 19-31 CALCIUM (test code = 2209) 9.2 MG/DL 8.5-10.5 PROTEIN, TOTAL (test code = 222) 7.1 G/DL 6.1-8.3 ALBUMIN (test code = 2201) 4.7 G/DL 3.5-5.2 CALC GLOBULIN (test code = 2240) 2.4 G/DL 1.9-3.7 CALC A/G RATIO (test code = 2234) 2.0 RATIO 1.0-2.6 BILIRUBIN, TOTAL (test code = 220) <0.2 MG/DL See_Comment [Automated me ssage] The system which generated this result transmitted reference range: <=1.2. The reference range was not used to interpret this result as normal/abnormal. ALKALINE PHOSPHATASE (test code = 2204) 85 U/L 40-121 AST (test code = 2218) 35 U/L 9-50 ALT (test code = 2219) 54 U/L 5-50 H UNLESS OTHERWISE INDICATED, ALL TESTING PERFORMED [facility] [employer] [address] [place] [address] VEGETABLE SCULLION: COOKIE GÓMEZ M.D. CLIA NUMBER [id number] [facility] [place]. [id number] CBC W/AUTO DIFF WITH [id number] 03:18:31* Test Item Value Reference Range Interpretation Comme nts WBC (test code = 1001) 7.5 K/UL 3.5-11.0 RBC (test code = 1002) 5.13 M/UL 4.50-6.10 HEMOGLOBIN (test code = 1003) 17.3 G/DL 13.5-17.0 H HEMATOCRIT (test code = 1004) 49.0 % 40.0-51.0 MCV (test code = 1005) 95.5 fL 80.0-99.0 MCH (test code = 1006) 33.7 PG 25.0-33.0 H MCHC (test code = 1007) 35.3 G/DL 31.0-36.0 RDW (test code = 1038) 12.8 % 11.5-15.0 NEUTROPHILS (test code = 1008) 52.1 % NOTE: EFFECTIVE 10/14/2021, REFERENCE INTERVALS AND FLAGGING FORRELATIVE (%) WBC DIFFERENTIAL WILL BE ELIMINATED REDUNDANT TOABSOLUTE COUNTS.SEE [email or web address] te LYMPHOCYTES (test code = 1010) 30.6 % MONOCYTES (test code = 1011) 13.4 % EOSINOPHILS (test code = 1012) 2.5 % BASOPHILS (test code = 1013) 0.7 % IMMATURE GRANYLOCYTES (test code = 1036) 0.7 % NUCLEATED RBCS (test code = 1065) 0.0 /100 WBC'S See_Comment [Automated message] The system which generated this result transmitted reference range: 0.0. The reference range was not used to interpret this result as normal/abnormal. PLATELET COUNT (test code = 1015) 221 K/UL 130-400 ABSOLUTE NEUTROPHILS (test code = 1066) 3.91 K/UL 1.50-7.50 ABSOLUTE LYMPHOCYTES (test code = 1067) 2.30 K/UL 1.00-4.00 ABSOLUTE MONOCYTES (test code = 1068) 1.01 K/UL 0.20-1.00 H ABSOLUTE EOSINOPHILS (test code = 1040) 0.19 K/UL 0.00-0.50 ABSOLUTE BASOPHILS (test code = 1069) 0.05 K/UL 0.00-0.20 ABS IMMATURE GRANULOCYTES (test code = 1020) 0.05 K/UL 0.00-0.10 ABS NUCLEATED RBCS (test code = 15092) 0.00 K/UL 0.00-0.11 CBC W/AUTO [id number] 00:00:00* Test Item Value Reference Range Interpretation Comme nts WBC (test code = 1001) 7.5 K/UL RBC (test code = 1002) 5.13 M/UL HEMOGLOBIN (test code = 1003) 17.3 G/DL HEMATOCRIT (test code = 1004) 49.0 % MCV (test code = 1005) 95.5 fL MCH (test code = 1006) 33.7 PG MCHC (test code = 1007) 35.3 G/DL RDW (test code = 1038) 12.8 % NEUTROPHILS (test code = 1008) 52.1 % LYMPHOCYTES (test code = 1010) 30.6 % MONOCYTES (test code = 1011) 13.4 % EOSINOPHILS (test code = 1012) 2.5 % BASOPHILS (test code = 1013) 0.7 % IMMATURE GRANYLOCYTES (test code = 1036) 0.7 % NUCLEATED RBCS (test code = 1065) 0.0 /100WBC'S PLATELET COUNT (test code = 1015) 221 K/UL ABSOLUTE NEUTROPHILS (test c ode = 1066) 3.91 K/UL ABSOLUTE LYMPHOCYTES (test c ode = 1067) 2.30 K/UL ABSOLUTE MONOCYTES (test cod e = 1068) 1.01 K/UL ABSOLUTE EOSINOPHILS (test c ode = 1040) 0.19 K/UL ABSOLUTE BASOPHILS (test cod e = 1069) 0.05 K/UL ABS IMMATURE GRANULOCYTES (t est code = 1020) 0.05 K/UL ABS NUCLEATED RBCS (test cod e = 45511) 0.00 K/UL Dante LaguerreCOMPREHENSIVE METABOLIC [id number] 00:00:00* Test Item Value Reference Range Interpretation Comme nts GLUCOSE (test code = 2217) 144 MG/DL BUN (test code = 2208) 15 MG/DL CREATININE (test code = 2214) 0.78 MG/DL eGFR (2020 CKD-EPI) (test code = 46616) 107 ML/MIN/1.73 CALC BUN/CREAT (test code = 2235) 19 RATIO SODIUM (test code = 2231) 141 MEQ/L POTASSIUM (test code = 2228) 4.4 MEQ/L CHLORIDE (test code = 2215) 101 MEQ/L CARBON DIOXIDE (test code = 2206) 26 MEQ/L CALCIUM (test code = 2209) 9.2 MG/DL PROTEIN, TOTAL (test code = 2229) 7.1 G/DL ALBUMIN (test code = 2201) 4.7 G/DL CALC GLOBULIN (test code = 2240) 2.4 G/DL CALC A/G RATIO (test code = 2234) 2.0 RATIO BILIRUBIN, TOTAL (test code = 2207) <0.2 MG/DL ALKALINE PHOSPHATASE (test code = 2204) 85 U/L AST (test code = 2218) 35 U/L ALT (test code = 2219) 54 U/L Dante LaguerreCBC W/AUTO [id number] 00:00:00* Test Item Value Reference Range Interpretation Comme nts WBC (test code = 1001) 7.5 K/UL RBC (test code = 1002) 5.13 M/UL HEMOGLOBIN (test code = 1003) 17.3 G/DL HEMATOCRIT (test code = 1004) 49.0 % MCV (test code = 1005) 95.5 fL MCH (test code = 1006) 33.7 PG MCHC (test code = 1007) 35.3 G/DL RDW (test code = 1038) 12.8 % NEUTROPHILS (test code = 1008) 52.1 % LYMPHOCYTES (test code = 1010) 30.6 % MONOCYTES (test code = 1011) 13.4 % EOSINOPHILS (test code = 1012) 2.5 % BASOPHILS (test code = 1013) 0.7 % IMMATURE GRANYLOCYTES (test code = 1036) 0.7 % NUCLEATED RBCS (test code = 1065) 0.0 /100WBC'S PLATELET COUNT (test code = 1015) 221 K/UL ABSOLUTE NEUTROPHILS (test c ode = 1066) 3.91 K/UL ABSOLUTE LYMPHOCYTES (test c ode = 1067) 2.30 K/UL ABSOLUTE MONOCYTES (test cod e = 1068) 1.01 K/UL ABSOLUTE EOSINOPHILS (test c ode = 1040) 0.19 K/UL ABSOLUTE BASOPHILS (test cod e = 1069) 0.05 K/UL ABS IMMATURE GRANULOCYTES (t est code = 1020) 0.05 K/UL ABS NUCLEATED RBCS (test cod e = 81835) 0.00 K/UL COMPREHENSIVE METABOLIC [id number] 00:00:00* Test Item Value Reference Range Interpretation Comme nts GLUCOSE (test code = 2217) 144 MG/DL BUN (test code = 2208) 15 MG/DL CREATININE (test code = 2214) 0.78 MG/DL eGFR (2020 CKD-EPI) (test code = 83721) 107 ML/MIN/1.73 CALC BUN/CREAT (test code = 2235) 19 RATIO SODIUM (test code = 2231) 141 MEQ/L POTASSIUM (test code = 2228) 4.4 MEQ/L CHLORIDE (test code = 2215) 101 MEQ/L CARBON DIOXIDE (test code = 2206) 26 MEQ/L CALCIUM (test code = 2209) 9.2 MG/DL PROTEIN, TOTAL (test code = 2229) 7.1 G/DL ALBUMIN (test code = 2201) 4.7 G/DL CALC GLOBULIN (test code = 2240) 2.4 G/DL CALC A/G RATIO (test code = 2234) 2.0 RATIO BILIRUBIN, TOTAL (test code = 2207) <0.2 MG/DL ALKALINE PHOSPHATASE (test code = 2204) 85 U/L AST (test code = 2218) 35 U/L ALT (test code = 2219) 54 U/L CBC W/AUTO [id number] 00:00:00* Test Item Value Reference Range Interpretation Comme nts WBC (test code = 1001) 7.5 K/UL RBC (test code = 1002) 5.13 M/UL HEMOGLOBIN (test code = 1003) 17.3 G/DL HEMATOCRIT (test code = 1004) 49.0 % MCV (test code = 1005) 95.5 fL MCH (test code = 1006) 33.7 PG MCHC (test code = 1007) 35.3 G/DL RDW (test code = 1038) 12.8 % NEUTROPHILS (test code = 1008) 52.1 % LYMPHOCYTES (test code = 1010) 30.6 % MONOCYTES (test code = 1011) 13.4 % EOSINOPHILS (test code = 1012) 2.5 % BASOPHILS (test code = 1013) 0.7 % IMMATURE GRANYLOCYTES (test code = 1036) 0.7 % NUCLEATED RBCS (test code = 1065) 0.0 /100WBC'S PLATELET COUNT (test code = 1015) 221 K/UL ABSOLUTE NEUTROPHILS (test c ode = 1066) 3.91 K/UL ABSOLUTE LYMPHOCYTES (test c ode = 1067) 2.30 K/UL ABSOLUTE MONOCYTES (test cod e = 1068) 1.01 K/UL ABSOLUTE EOSINOPHILS (test c ode = 1040) 0.19 K/UL ABSOLUTE BASOPHILS (test cod e = 1069) 0.05 K/UL ABS IMMATURE GRANULOCYTES (t est code = 1020) 0.05 K/UL ABS NUCLEATED RBCS (test cod e = 65634) 0.00 K/UL COMPREHENSIVE METABOLIC [id number] 00:00:00* Test Item Value Reference Range Interpretation Comme nts GLUCOSE (test code = 2217) 144 MG/DL BUN (test code = 2208) 15 MG/DL CREATININE (test code = 2214) 0.78 MG/DL eGFR (2020 CKD-EPI) (test code = 38438) 107 ML/MIN/1.73 CALC BUN/CREAT (test code = 2235) 19 RATIO SODIUM (test code = 2231) 141 MEQ/L POTASSIUM (test code = 2228) 4.4 MEQ/L CHLORIDE (test code = 2215) 101 MEQ/L CARBON DIOXIDE (test code = 2206) 26 MEQ/L CALCIUM (test code = 2209) 9.2 MG/DL PROTEIN, TOTAL (test code = 2229) 7.1 G/DL ALBUMIN (test code = 2201) 4.7 G/DL CALC GLOBULIN (test code = 2240) 2.4 G/DL CALC A/G RATIO (test code = 2234) 2.0 RATIO BILIRUBIN, TOTAL (test code = 2207) <0.2 MG/DL ALKALINE PHOSPHATASE (test code = 2204) 85 U/L AST (test code = 2218) 35 U/L ALT (test code = 2219) 54 U/L CBC W/AUTO [id number] 00:00:00* Test Item Value Reference Range Interpretation Comme nts WBC (test code = 1001) 7.5 K/UL RBC (test code = 1002) 5.13 M/UL HEMOGLOBIN (test code = 1003) 17.3 G/DL HEMATOCRIT (test code = 1004) 49.0 % MCV (test code = 1005) 95.5 fL MCH (test code = 1006) 33.7 PG MCHC (test code = 1007) 35.3 G/DL RDW (test code = 1038) 12.8 % NEUTROPHILS (test code = 1008) 52.1 % LYMPHOCYTES (test code = 1010) 30.6 % MONOCYTES (test code = 1011) 13.4 % EOSINOPHILS (test code = 1012) 2.5 % BASOPHILS (test code = 1013) 0.7 % IMMATURE GRANYLOCYTES (test code = 1036) 0.7 % NUCLEATED RBCS (test code = 1065) 0.0 /100WBC'S PLATELET COUNT (test code = 1015) 221 K/UL ABSOLUTE NEUTROPHILS (test c ode = 1066) 3.91 K/UL ABSOLUTE LYMPHOCYTES (test c ode = 1067) 2.30 K/UL ABSOLUTE MONOCYTES (test cod e = 1068) 1.01 K/UL ABSOLUTE EOSINOPHILS (test c ode = 1040) 0.19 K/UL ABSOLUTE BASOPHILS (test cod e = 1069) 0.05 K/UL ABS IMMATURE GRANULOCYTES (t est code = 1020) 0.05 K/UL ABS NUCLEATED RBCS (test cod e = 28148) 0.00 K/UL Dante F AustinCOMPREHENSIVE METABOLIC [id number] 00:00:00* Test Item Value Reference Range Interpretation Comme nts GLUCOSE (test code = 2217) 144 MG/DL BUN (test code = 2208) 15 MG/DL CREATININE (test code = 2214) 0.78 MG/DL eGFR (2020 CKD-EPI) (test code = 54804) 107 ML/MIN/1.73 CALC BUN/CREAT (test code = 2235) 19 RATIO SODIUM (test code = 2231) 141 MEQ/L POTASSIUM (test code = 2228) 4.4 MEQ/L CHLORIDE (test code = 2215) 101 MEQ/L CARBON DIOXIDE (test code = 2206) 26 MEQ/L CALCIUM (test code = 2209) 9.2 MG/DL PROTEIN, TOTAL (test code = 2229) 7.1 G/DL ALBUMIN (test code = 2201) 4.7 G/DL CALC GLOBULIN (test code = 2240) 2.4 G/DL CALC A/G RATIO (test code = 2234) 2.0 RATIO BILIRUBIN, TOTAL (test code = 2207) <0.2 MG/DL ALKALINE PHOSPHATASE (test code = 2204) 85 U/L AST (test code = 2218) 35 U/L ALT (test code = 2219) 54 U/L Dante FuentesRS-CoV-2 (COVID-19) by RT-PCR (HIGH RISK)2021-01-02 00:00:00* Test Item Value Reference Range Interpretation Comme nts SARS-CoV-2 INTERPRETATION (test code = 48709) NEGATIVE SOURCE (test code = 06266) NASOPHARYNGEAL Dante FuentesRS-CoV-2 (COVID-19) by RT-PCR (HIGH RISK)2021-01-02 00:00:00* Test Item Value Reference Range Interpretation Comme nts SARS-CoV-2 INTERPRETATION (test code = 56431) NEGATIVE SOURCE (test code = 50659) NASOPHARYNGEAL SARS-CoV-2 (COVID-19) by RT-PCR (HIGH RISK)2021-01-02 00:00:00* Test Item Value Reference Range Interpretation Comme nts SARS-CoV-2 INTERPRETATION (test code = 63296) NEGATIVE SOURCE (test code = 41362) NASOPHARYNGEAL SARS-CoV-2 (COVID-19) by RT-PCR (HIGH RISK)2021-01-02 00:00:00* Test Item Value Reference Range Interpretation Comme nts SARS-CoV-2 INTERPRETATION (test code = 24030) NEGATIVE SOURCE (test code = 13525) NASOPHARYNGEAL Dante Laguerre Consult Notes Date/Time Note Provider Source 2024-04-26 12:05:24 Associated Order(s): CONSULT INFECTIOUS DISEASE Images from the original note were not included. This is a 53-year-old male I was consulted for bacteremia coming into the emergency room with abdominal discomfort which started with fevers and severe abdominal pain patient was brought into the emergency room via ambulance patient also felt shortness of breath before. Does not have any significant past medical history patient denies eating anything which has gone bad. Denies any headache nausea vomiting chest pain Otness of breath or abdominal pain at the time of examination History reviewed. No pertinent past medical history. No past surgical history on file. Social History Socioeconomic History Marital status: Spouse name: Not on file Number of children: Not on file Years of education: Not on file Highest education level: Not on file Occupational History Not on file Tobacco Use Smoking status: Former Current packs/day: 0.00 Types: Cigarettes Quit date: 03/22/2021 Years since quittin.0 Passive exposure: Never Smokeless tobacco: Not on file Substance and Sexual Activity Alcohol use: Not on file Drug use: Not on file Sexual activity: Not on file Other Topics Concern Not on file Social History Narrative Not on file Social Determinants of Health Financial Resource Strain: Not on file Food Insecurity: Not on file Transportation Needs: Not on file Physical Activity: Not on file Stress: Not on file Social Connections: Not on file Intimate Partner Violence: Not on file Housing Stability: Not on file No family history on file. Current Facility-Administered Medications: piperacillin-tazobactam (ZOSYN) 3.375 g in NaCl 0.9% (NS) 100 mL MINI-BAG, 3.375 g, IV Piggyback, Q8H ABX, Levon Bonilla MD, Last Rate: 25 mL/hr at 04/26/24 0844, 3.375 g at 04/26/24 0844 simethicone (GAS RELIEF (SIMETHICONE)) chewable tablet 80 mg, 80 mg, Oral, PC+HSPRN, Jonathan Luciano, [employer], 80 mg at 04/24/249 acetaminophen (TYLENOL) tablet 650 mg, 650 mg, Oral, Q6HPRN, Levon Bonilla MD ondansetron (ZOFRAN (PF)) injection 4 mg, 4 mg, Slow IV Push, Q6HPRN, Levon Bonilla MD pantoprazole (PROTONIX) injection 40 mg, 40 mg, Slow IV Push, Q12H, Rene Hamilton MD, 40 mg at 04/26/24 0842 No Known Allergies Review of systems: 10 point review was performed Physical exam: Patient lying in bed not in any acute cardiopulmonary distress Vitals: 04/25/24 2312 04/26/24 0312 04/26/24 0722 04/26/24 1117 BP: 126/82 131/79 123/75 128/72 Pulse: 87 75 77 74 Resp: 18 20 18 18 Temp: 36.5 ?C (97.7 ?F) 36.4 ?C (97.6 ?F) 36.4 ?C (97.6 ?F) 36.5 ?C (97.7 ?F) TempSrc: Temporal Artery Temporal Artery SpO2: 95% 93% 93% 93% Weight: 180 lb 11.2 oz (82 kg) Height: HEENT: Within normal limits Neck: Supple, no lymphopathy Lungs: Basal crackles right more than left Heart: S1-S2 regular Abdomen soft bowel sounds hyperactive otherwise unremarkable Extremity no edema CBC WBC (10*3/?L) Date Value 04/26/2024 8.08 RBC (10*6/?L) Date Value 04/26/2024 4.54 PLT (10*3/?L) Date Value 04/26/2024 214 HGB (g/dL) Date Value 04/26/2024 14.6 HCT (%) Date Value 04/26/2024 44.7 CMP NA (mmol/L) Date Value 04/26/2024 140 K (mmol/L) Date Value 04/26/2024 3.8 CALCIUM (mg/dL) Date Value 04/26/2024 8.7 CL (mmol/L) Date Value 04/26/2024 105 BUN (mg/dL) Date Value 04/26/2024 15 CREATININE (mg/dL) Date Value 04/26/2024 0.72 GLUCOSE (mg/dL) Date Value 04/26/2024 110 CO2 TOTAL (mmol/L) Date Value 04/26/2024 30 ALBUMIN (g/dL) Date Value 04/26/2024 3.6 T PROTEIN (g/dL) Date Value 04/26/2024 6.6 TOTAL BILI (mg/dL) Date Value 04/26/2024 0.5 BILI UNCON (mg/dL) Date Value 04/26/2024 0.3 BILI CONJ (mg/dL) Date Value 04/26/2024 0.0 ALTv (U/L) Date Value 04/26/2024 76 (H) AST(SGOT) (U/L) Date Value 04/26/2024 49 (H) ALK PHOS (U/L) Date Value 04/26/2024 78 BLOOD CULTURE SCREEN Order: [id number] Status: Final result Visible to patient: No (not released) Dx: Generalized abdominal pain Specimen Information: ARM, RIGHT, BELOW ELBOW; Blood 0 Result Notes important suggestion Newer results are available. Click to view them now. Component Ref Range & Units 3 d ago Blood Culture-Aerobic No growth Culture positive. See Blood Culture Workup for additional information. Panic Comment: Previous preliminary verified result was Culture In Progress on 04/23/2024 at 2301 CDT Blood Culture-Anaerobic No growth Culture positive. See Blood Culture Workup for additional information. Panic Narrative & Impression Exam: CT Abdomen and Pelvis with contrast, 04/23/2024 5:00 PM. Ordering Physician: TOBY MITCHELL. History: Abdominal abscess/infection suspected . Comparison: None. Technique: CT abdomen and pelvis was obtained with intravenous contrast. CT was performed according to ALARA (As Low As Reasonably Achievable). Technical Quality: Adequate. Findings: LOWER CHEST: Patchy groundglass opacities in the right lower lobe. ABDOMEN/PELVIS: Liver: Normal. Gallbladder/biliary: Normal gallbladder. No biliary ductal dilation. Pancreas: Normal. Spleen: Normal. Adrenal glands: Normal. Kidneys and ureters: Normal. Bladder: Suggested circumferential bladder wall thickening. Reproductive organs: Normal for age. Stomach/bowel: Small hiatal hernia. No bowel obstruction. No bowel wall thickening. Normal appendix. Lymph nodes: No lymphadenopathy. Peritoneum: No organized fluid collection or free air. Vessels: Unremarkable. MUSCULOSKELETAL: Bones: No acute osseous abnormality. Soft tissues: Small fat-containing umbilical hernia. IMPRESSION Impression: 1. Suggested bladder wall thickening which could be secondary to underdistention or cystitis. 2. Patchy groundglass opacities in the right lower lobe suggestive of bronchiolitis. 3. Small umbilical hernia. 4. No bowel obstruction. Normal appendix. Assessment and plan: Leukocytosis which has improved fever have subsided and the patient was coming in with abdominal pain CT scan showing bladder wall thickening suggestive of cystitis and right lower lobe bronchiolitis Will recommend to continue Augmentin for total of 2 weeks including the time when IV antibiotic was a started Bacteremia versus contamination Follow-up scan of the lungs if condition does not improve Continue supportive care and monitor for signs of infection with WBC and fever trends Thank you for consult IM-INTERNAL MEDICINE STAFF [facility] - Health History and Physical Notes Date/Time Note Provider Source 2024-04-23 22:07:15 Medicine History & Physical Date of Service: 04/23/2024 Pt presents from: Home CC: Abdominal pain History of Present Illness: May Perez is a 53 year old male with a PMH of none who presented to the ED for abdominal pain. Last night he had subjective fever. He had chills for 2 hours in the middle of the night. He said he was shaking violently. This morning he had a loose bowel movement, which was notable for being dark/black-colored. He went to work today, and was on a ladder when he noticed sudden onset of upper abdominal pain. It was in a bandlike distribution, described as knots. It was rated 10 out of 10, he had to lay down outside because of the severity. It lasted for 15 to 20 minutes, and resolved. It is been intermittent since then. He is not currently experiencing pain, he is eating a cheeseburger. ROS: Pt denies fever / chills / nausea / vomiting /constipation / chest pain / SOB / cough /dysuria / hematuria / melena / hematochezia / rashes / suicidal or homicidal ideation / All others negative Review of Hx/Meds: No current facility-administered medications on file prior to encounter. No current outpatient medications on file prior to encounter. I have reviewed the patient's home medications PMH: History reviewed. No pertinent past medical history. PSH: has no past surgical history on file. Family Hx: Social History Tobacco Use Smoking status: Former Current packs/day: 0.00 Types: Cigarettes Quit date: 03/22/2021 Years since quittin.0 Passive exposure: Never Current Scheduled Medications Current IV Current Facility-Administered Medications: acetaminophen (TYLENOL) tablet 650 mg, 650 mg, Oral, Q6HPRN, Levon Bonilla MD [START ON 04/24/2024] enoxaparin (LOVENOX) injection 40 mg, 40 mg, Subcutaneous, DAILY, Levon Bonilla MD HYDROcodone-acetaminophen (NORCO 5) 5-325 mg tablet 1 tablet, 1 tablet, Oral, Q6HPRN, Levon Bonilla MD lactated ringers IV infusion 1,000 mL, 1,000 mL, IV Infusion, CONTINUOUS, Rene Hamiltno MD metroNIDAZOLE (FLAGYL) tablet 500 mg, 500 mg, Oral, ONCE, Rene Hamilton MD morpHINE (4 mg/mL) injection 4 mg, 4 mg, Slow IV Push, ONCE, Toby Mitchell MD morpHINE (4 mg/mL) injection 4 mg, 4 mg, Slow IV Push, Q4HPRN, Levon Bonilal MD NaCl 0.9% (NS) IV infusion 1,000 mL, 1,000 mL, IV Infusion, CONTINUOUS, Levon Bonilla MD, Last Rate: 125 mL/hr at 04/23/242049, 1,000 mL at 04/23/242049 ondansetron (ZOFRAN (PF)) injection 4 mg, 4 mg, Slow IV Push, ONCE, Toby Mitchell MD ondansetron (ZOFRAN (PF)) injection 4 mg, 4 mg, Slow IV Push, Q6HPRN, Levon Bonilla MD pantoprazole (PROTONIX) injection 40 mg, 40 mg, Slow IV Push, Q12H, Rene Hamilton MD simethicone (GAS RELIEF (SIMETHICONE)) chewable tablet 80 mg, 80 mg, Oral, PC+HS, Rene Hamilton MD Objective: Vitals: Vitals: 04/23/24199904/23/24202904/23/24205004/23/242128 BP: 101/80 112/71 132/82 Pulse: 79 86 81 Resp: 19 19 18 Temp: 36.6 ?C (97.9 ?F) 36.3 ?C (97.3 ?F) TempSrc: Oral SpO2: 95% 95% 96% Weight: 184 lb (83.5 kg) 184 lb 1.4 oz (83.5 kg) Height: 5' 9.02" (1.753 m) I/O's: Intake/Output Summary (Last 24 hours) at 04/23/20242206 Last data filed at 04/23/20242036 Gross per 24 hour Intake 100 ml Output -- Net 100 ml Physical Exam: Constitutional: A&O x3, well-developed, well-nourished, and in no distress. Head: Normocephalic and atraumatic. Eyes: PERRL. Conjunctivae and EOM are normal. Neck: Normal range of motion. Neck supple. No JVD present. Cardiovascular: Normal rate, regular rhythm, normal heart sounds Pulmonary/Chest: Effort normal and breath sounds normal. No respiratory distress. No wheezes, rales or rhonchi. Abdominal: Soft. Bowel sounds are normal. Mild tenderness to palpation non-distended and no masses. No rebound or guarding. Musculoskeletal: Normal range of motion. No edema or tenderness. Lymphadenopathy: No cervical adenopathy. Neurological: A&O x3. No focal deficits. Gait normal. Skin: Skin is warm and dry. No rash noted. No erythema. No pallor. Labs: BMP:BMP NA (mmol/L) Date Value 04/23/2024 136 K (mmol/L) Date Value 04/23/2024 4.3 CALCIUM (mg/dL) Date Value 04/23/2024 8.9 CL (mmol/L) Date Value 04/23/2024 102 BUN (mg/dL) Date Value 04/23/2024 20 CREATININE (mg/dL) Date Value 04/23/2024 0.67 GLUCOSE (mg/dL) Date Value 04/23/2024 122 (H) CO2 TOTAL (mmol/L) Date Value 04/23/2024 30 CBC:CBC WBC (10*3/?L) Date Value 04/23/2024 23.05 (H) RBC (10*6/?L) Date Value 04/23/2024 4.84 PLT (10*3/?L) Date Value 04/23/2024 211 HGB (g/dL) Date Value 04/23/2024 15.7 HCT (%) Date Value 04/23/2024 47.2 BMP:Hepatic Function Panel ALBUMIN (g/dL) Date Value 04/23/2024 4.3 T PROTEIN (g/dL) Date Value 04/23/2024 7.5 TOTAL BILI (mg/dL) Date Value 04/23/2024 1.4 (H) ALTv (U/L) Date Value 04/23/2024 100 (H) AST(SGOT) (U/L) Date Value 04/23/2024 62 (H) ALK PHOS (U/L) Date Value 04/23/2024 72 Troponin: Recent Labs 04/23/24 1629 TROPNI 0.011 I have reviewed all relevant labs Imaging: XR CHEST 1 VW Result Date: 04/23/2024 EXAM:XR CHEST 1 VW HISTORY: 53 years-old Male; Indication for study: pneumonia COMPARISON: None TECHNIQUE: Frontal chest radiograph was obtained. FINDINGS: Lungs/Pleura: Adequate lung volume. The lungs are clear with no focal consolidation. There is no pleural effusion or pneumothorax. Heart/Mediastinum: The cardiomediastinal silhouette is normal. Bones and soft tissues: No acute abnormality detected. No acute cardiopulmonary abnormality. CT ABDOMEN PELVIS W CONTRAST Result Date: 04/23/2024 Exam: CT Abdomen and Pelvis with contrast, 04/23/2024 5:00 PM. Ordering Physician: TOBY MITCHELL. History: Abdominal abscess/infection suspected . Comparison: None. Technique: CT abdomen and pelvis was obtained with intravenous contrast. CT was performed according to ALARA (As Low As Reasonably Achievable). Technical Quality: Adequate. Findings: LOWER CHEST: Patchy groundglass opacities in the right lower lobe. ABDOMEN/PELVIS: Liver: Normal. Gallbladder/biliary: Normal gallbladder. No biliary ductal dilation. Pancreas: Normal. Spleen: Normal. Adrenal glands: Normal. Kidneys and ureters: Normal. Bladder: Suggested circumferential bladder wall thickening. Reproductive organs: Normal for age. Stomach/bowel: Small hiatal hernia. No bowel obstruction. No bowel wall thickening. Normal appendix. Lymph nodes: No lymphadenopathy. Peritoneum: No organized fluid collection or free air. Vessels: Unremarkable. MUSCULOSKELETAL: Bones: No acute osseous abnormality. Soft tissues: Small fat-containing umbilical hernia. Impression: 1. Suggested bladder wall thickening which could be secondary to underdistention or cystitis. 2. Patchy groundglass opacities in the right lower lobe suggestive of bronchiolitis. 3. Small umbilical hernia. 4. No bowel obstruction. Normal appendix. RL: [id number] End of Report Assessment and plan: Principal Problem: Generalized abdominal pain Ohara sign negative. Lipase within normal limits. Abnormal labs-WBC 23, mild elevation in liver enzymes. CT abdomen suggest possible cystitis versus bladder on distention. Patient expresses history of heartburn, indigestion, is on daily Nexium. Hemoglobin 15.7. - Trend liver enzymes, CBC. Obtain UA, FOBT. - As needed antiemetics, analgesics - Presentation concerning for possible viral gastroenteritis. Status post Flagyl x 1. Hold off on further antibiotics, unless patient develops fever, increased episodes of diarrhea. - IV fluids - IV PPI twice daily DVT prophylaxis: SCDs Advanced Care Planning ( Z71.89 ) Above assessment and plan discussed at length with patient, patient expressed full understanding. Questions and concerns addressed I spent 18 minutes discussing the advance care planning. Advanced Directive Maker: Self Level of comfort: N/A Code Status: Full Tobacco user (Z71.6) Patient counseled at length and Pt expressed full understanding, Time discussed 3 minutes Disposition: Observation IM-INTERNAL MEDICINE STAFF [facility] - Health Notes Date/Time Note Provider Source Dante FNeida [facility]2024-06-13 00:00:00 Dante Neida [facility]2024-06-05 11:51:42 TRANSITIONAL CARE MANAGEMENT ASSESSMENT 04/27/2024 May Perez [id number] May Perez is a 53 year old /White male was admitted on 04/23/24 to [facility], [facility]. He was discharged on 04/26/24 with discharge disposition of HR- Routine Discharge. Admitting Physician: Levon Bonilla Discharge Diagnosis: Generalized abdominal pain Bacteremia No linked episodes TCM [id number] outreach documentation: Discharge Assessment Chart Assessed: 04/27/24 TCM Outreach Completed: 04/27/24 Do you have a few minutes to speak with me about how you are doing at home?: Yes (Patient stated he is doing okay) Discharge Instructions Do you understand your at-home instructions?: Yes Medications Have you filled your prescriptions and do you have them in your home? : Yes Do you know how to take your medications?: Yes Supplies Did you receive applicable home medical supplies/equipment?: N/A Follow Up Appointment Has a follow up appointment been scheduled?: No May I assist with scheduling this appointment?: Patient will schedule Do you have any questions about your follow up appointments?: No Are you able to get to your appointment? Who will be taking you?: Yes Self or Home Health Assistance Has the home health nurse contacted you since you've been home?: N/A Survey - Recognition Do you have any other questions or concerns at this time?: No Future Appointments: Judith Michael [facility] - [id number] 13:40:45 Problem: Falls, Risk of Goal: Absence of falls Outcome: Adequate for discharge Problem: Pain Goal: Control of pain at or below patient's documented comfort goal Outcome: Adequate for discharge Goal: Reduction in pain sensation Outcome: Adequate for discharge Problem: Discharge Planning Goal: Adequate for discharge Outcome: Adequate for discharge Goal: Effective communication Outcome: Adequate for discharge Problem: Skin integrity Impaired (Risk or Actual) Goal: Prevention of new skin breakdown Outcome: Adequate for discharge Problem: Venous Thromboembolism, (actual or risk of) Goal: Absence of venous thromboembolism (Risk) Outcome: Adequate for discharge Goal: Prevent further complications associated with VTE diagnosis (Actual) Outcome: Adequate for discharge Minerva Love [facility] - [id number] 06:30:55 Problem: Falls, Risk of Goal: Absence of falls Outcome: Progressing as expected Problem: Pain Goal: Control of pain at or below patient's documented comfort goal Outcome: Progressing as expected Goal: Reduction in pain sensation Outcome: Progressing as expected Problem: Discharge Planning Goal: Adequate for discharge Outcome: Progressing as expected Goal: Effective communication Outcome: Progressing as expected Problem: Skin integrity Impaired (Risk or Actual) Goal: Prevention of new skin breakdown Outcome: Progressing as expected Problem: Venous Thromboembolism, (actual or risk of) Goal: Absence of venous thromboembolism (Risk) Outcome: Progressing as expected Goal: Prevent further complications associated with VTE diagnosis (Actual) Outcome: Progressing as expected [id number] 17:33:56 Problem: Falls, Risk of Goal: Absence of falls Outcome: Progressing as expected Problem: Pain Goal: Control of pain at or below patient's documented comfort goal Outcome: Progressing as expected Goal: Reduction in pain sensation Outcome: Progressing as expected Problem: Discharge Planning Goal: Adequate for discharge Outcome: Progressing as expected Goal: Effective communication Outcome: Progressing as expected Problem: Skin integrity Impaired (Risk or Actual) Goal: Prevention of new skin breakdown Outcome: Progressing as expected Problem: Venous Thromboembolism, (actual or risk of) Goal: Absence of venous thromboembolism (Risk) Outcome: Progressing as expected Goal: Prevent further complications associated with VTE diagnosis (Actual) Outcome: Progressing as expected [facility]2024-06-02 12:32:13 Problem: Falls, Risk of Goal: Absence of falls Outcome: Progressing as expected Problem: Pain Goal: Control of pain at or below patient's documented comfort goal Outcome: Progressing as expected Goal: Reduction in pain sensation Outcome: Progressing as expected Problem: Discharge Planning Goal: Adequate for discharge Outcome: Progressing as expected Goal: Effective communication Outcome: Progressing as expected Problem: Skin integrity Impaired (Risk or Actual) Goal: Prevention of new skin breakdown Outcome: Progressing as expected Problem: Venous Thromboembolism, (actual or risk of) Goal: Absence of venous thromboembolism (Risk) Outcome: Progressing as expected Goal: Prevent further complications associated with VTE diagnosis (Actual) Outcome: Progressing as expected [facility] Anthony Coronado [place] [id number] 23:36:36 Problem: Falls, Risk of Goal: Absence of falls Outcome: Progressing as expected Problem: Pain Goal: Control of pain at or below patient's documented comfort goal Outcome: Progressing as expected Goal: Reduction in pain sensation Outcome: Progressing as expected Problem: Discharge Planning Goal: Adequate for discharge Outcome: Progressing as expected Goal: Effective communication Outcome: Progressing as expected Problem: Skin integrity Impaired (Risk or Actual) Goal: Prevention of new skin breakdown Outcome: Progressing as expected Problem: Venous Thromboembolism, (actual or risk of) Goal: Absence of venous thromboembolism (Risk) Outcome: Progressing as expected Goal: Prevent further complications associated with VTE diagnosis (Actual) Outcome: Progressing as expected [place] [address]-06-01 20:40:52 Nurse Report Report given to Indu PONCE, Chief complaint, assessment findings, infusion verify and orders reviewed. Pt prepared for transfer Ingrid England RN [place] [address]-06-01 18:26:[address] to [address] read, per painter and grader cork sent to [facility] for read at 1750, [place] [address]-06-01 18:04:05 Pt sleeping noted sleep apnea, states he does not wear cpap but needs one [place] [address]-06-01 17:18:41 Visitors at bedside [place] [address]-06-01 16:35:21 States after he ate his cereal with blueberries this morning stomach felt kind of sick that was at 0730 so took tylenol and went back to bed because felt a little achy, [id number] 16:18:40 May Perez is a 53 year old male arrive [facility] c/o sharp upper bilat abdominal pain for 45 minutes, states had to just lay in the yard because he hurt so bad, no chest pain, no etoh, states normal bm at 1330, no n/v Ingrid England [facility]NPrem[facility] [id number] 16:17:00 AdmissionCare Guideline: Abdominal Pain, Undiagnosed, Inpatient Based on the indications selected for the patient, the bed status of Inpatient was determined to be MET The following indications were selected as present at the time of evaluation of the patient: - Severe abdominal tenderness AdmissionCare documentation entered by: Toby Mitchell [facility], 28th edition, Copyright ? 2023 [facility] All Rights Reserved. [id number] [facility] [id number] 16:17:00 Images from the original note were not included. 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 ED Events Date/Time Event User Comments 04/23/24 1623 Medical Screening Begins TOBY MITCHELL MD -- 04/23/24 1623 First Provider Evaluation TOBY MITCHELL MD -- Chief Complaint Chief Complaint Patient presents with Abdominal Pain ED Triage Notes Ingrid England RN 04/23/2024 16:21 May Perez is a 53 year old male arrive via [facility] c/o sharp upper bilat abdominal pain for 45 minutes, states had to just lay in the yard because he hurt so bad, no chest pain, no etoh, states normal bm at 1330, no n/v HPI History provided by: Patient Abdominal Pain Pain location: Generalized Pain quality: aching Pain quality: not cramping Pain radiates to: Does not radiate Pain severity: Moderate Timing: Constant Chronicity: New Relieved by: Nothing Worsened by: Nothing Associated symptoms: no chest pain, no chills, no cough, no dysuria, no fatigue, no fever, no nausea, no shortness of breath and no vomiting Past Medical History / Immunizations History reviewed. No pertinent past medical history. Tetanus received in last 5 years: Unknown Childhood immunizations: Up-to-date Past Surgical History No past surgical history on file. Allergies No Known Allergies Social History Tobacco Use Former; Cigarettes: Quit 03/22/2021 Passive Exposure: Never Tobacco Cessation: Counseling given: No Review of Systems Review of Systems Constitutional: Negative. Negative for chills, fatigue, fever and unexpected weight change. HENT: Negative. Eyes: Negative. Negative for discharge and itching. Respiratory: Negative. Negative for cough, chest tightness, shortness of breath and wheezing. Cardiovascular: Negative. Negative for chest pain and palpitations. Gastrointestinal: Positive for abdominal pain. Negative for abdominal distention, nausea and vomiting. Genitourinary: Negative. Negative for dysuria, urgency, frequency and flank pain. Musculoskeletal: Negative. Skin: Negative. Negative for color change, pallor and wound. Neurological: Negative. Negative for dizziness, syncope, light-headedness and headaches. Psychiatric/Behavioral: Negative. Negative for agitation and behavioral problems. All other systems reviewed and are negative. Endocrine: Endocrine negative Physical Exam ED Triage Vitals Weight 04/23/24 1621 82.6 kg (182 lb) Actual or estimated 04/23/24 2129 Actual Height 04/23/24 1621 1.753 m (5' 9") BP 04/23/24 1621 (!) 120/97 Pulse 04/23/24 1621 97 Resp 04/23/24 1621 18 Temp 04/23/24 1621 36.3 ?C (97.4 ?F) Temp source 04/23/24 1621 Oral SpO2 04/23/24 1621 97 % Measured on 04/23/24 1621 Room air Physical Exam Vitals reviewed. Constitutional: Appearance: He is well-developed. HENT: Head: Normocephalic and atraumatic. Nose: Nose normal. Eyes: Conjunctiva/sclera: Conjunctivae normal. Neck: Trachea: No tracheal deviation. Cardiovascular: Rate and Rhythm: Normal rate and regular rhythm. Heart sounds: Normal heart sounds. No murmur heard. No friction rub. Pulmonary: Effort: Pulmonary effort is normal. No respiratory distress. Breath sounds: Normal breath sounds. No stridor. No wheezing or rales. Abdominal: General: Bowel sounds are normal. There is no distension. Palpations: Abdomen is soft. Tenderness: There is abdominal tenderness. There is no guarding or rebound. Musculoskeletal: General: Normal range of motion. Cervical back: Normal range of motion and neck supple. Skin: General: Skin is warm and dry. Neurological: Mental Status: He is alert and oriented to person, place, and time. Cranial Nerves: No cranial nerve deficit. Sensory: No sensory deficit. Psychiatric: Behavior: Behavior normal. Labs Lab Results CBC WITH DIFF - Abnormal Result Value Ref Range WBC 23.05 (*) 4.20 - 10.70 10*3/?L RBC 4.84 4.26 - 5.52 10*6/?L HGB 15.7 12.2 - 16.4 g/dL HCT 47.2 38.4 - 49.3 % MCV 97.5 (*) 81.7 - 95.6 fL MCH 32.4 26.1 - 32.7 pg MCHC 33.3 31.2 - 35.0 g/dL RDW-SD 46.7 38.5 - 51.6 fL RDW-CV 13.1 12.1 - 15.4 % PLT 211 150 - 328 10*3/?L MPV 10.4 9.8 - 13.0 fL NRBC/100 WBC 0.0 0.0 - 10.0 /100 WBCs NRBC x103<0.01 10*3/?L SEG % 70 33 - 76 % BAND % 5 (*) 0 - 1 % META % 3 (*) <=0 % LYMPH % 17 14 - 54 % MONO % 5 (*) 0 - 4 % PLT ESTIMATE Normal Normal COMP. METABOLIC PANEL (82147) - Abnormal NA 136 135 - 145 mmol/L K 4.3 3.5 - 5.0 mmol/L CL 102 98 - 108 mmol/L CO2 TOTAL 30 23 - 31 mmol/L AGAP 4 2 - 16 BUN 20 7 - 23 mg/dL GLUCOSE 122 (*) 70 - 110 mg/dL CREATININE 0.67 0.60 - 1.25 mg/dL TOTAL BILI 1.4 (*) 0.1 - 1.1 mg/dL CALCIUM 8.9 8.6 - 10.6 mg/dL T PROTEIN 7.5 6.3 - 8.2 g/dL ALBUMIN 4.3 3.5 - 5.0 g/dL ALK PHOS 72 34 - 122 U/L ALTv 100 (*) 5 - 50 U/L AST(SGOT) 62 (*) 13 - 40 U/L eGFR 110.3 mL/min/1.73m2 N-TERMINAL PRO-BNP - Abnormal NT-proBNP 196 <=125 pg/mL URINALYSIS - Abnormal APPEARANCE Hazy (*) Clear COLOR Flavia (*) Yellow PH 5.0 4.8 - 8.0 SP GRAVITY 1.031 (*) 1.003 - 1.030 GLU U QUAL Normal Normal BLOOD Negative Negative KETONES Negative Negative PROTEIN Negative Negative UROBILIN 2.0 mg/dL (*) Normal BILIRUBIN Negative Negative NITRITE Negative Negative LEUK MARIA EUGENIA Negative Negative RBC/HPF 1 0 - 3 HPF WBC/HPF 1 0 - 5 HPF BACTERIA Few (*) Negative MUCOUS Marked (*) Negative LPF SQ EPITH <1 HPF LIPASE - Normal LIPASE 37 0 - 220 U/L TROPONIN I - Normal TROPONIN I 0.011 <=0.034 ng/mL LACTIC ACID WHOLE BLOOD - Normal LACTIC ACID 1.09 0.50 - 2.20 mmol/L BLOOD CULTURE SCREEN BLOOD CULTURE SCREEN Imaging XR CHEST 1 VW Final Result EXAM:XR CHEST 1 VW HISTORY: 53 years-old Male; Indication for study: pneumonia COMPARISON: None TECHNIQUE: Frontal chest radiograph was obtained. FINDINGS: Lungs/Pleura: Adequate lung volume. The lungs are clear with no focal consolidation. There is no pleural effusion or pneumothorax. Heart/Mediastinum: The cardiomediastinal silhouette is normal. Bones and soft tissues: No acute abnormality detected. IMPRESSION No acute cardiopulmonary abnormality. CT ABDOMEN PELVIS W CONTRAST Final Result Exam: CT Abdomen and Pelvis with contrast, 04/23/2024 5:00 PM. Ordering Physician: TOBY MITCHELL. History: Abdominal abscess/infection suspected . Comparison: None. Technique: CT abdomen and pelvis was obtained with intravenous contrast. CT was performed according to ALARA (As Low As Reasonably Achievable). Technical Quality: Adequate. Findings: LOWER CHEST: Patchy groundglass opacities in the right lower lobe. ABDOMEN/PELVIS: Liver: Normal. Gallbladder/biliary: Normal gallbladder. No biliary ductal dilation. Pancreas: Normal. Spleen: Normal. Adrenal glands: Normal. Kidneys and ureters: Normal. Bladder: Suggested circumferential bladder wall thickening. Reproductive organs: Normal for age. Stomach/bowel: Small hiatal hernia. No bowel obstruction. No bowel wall thickening. Normal appendix. Lymph nodes: No lymphadenopathy. Peritoneum: No organized fluid collection or free air. Vessels: Unremarkable. MUSCULOSKELETAL: Bones: No acute osseous abnormality. Soft tissues: Small fat-containing umbilical hernia. IMPRESSION Impression: 1. Suggested bladder wall thickening which could be secondary to underdistention or cystitis. 2. Patchy groundglass opacities in the right lower lobe suggestive of bronchiolitis. 3. Small umbilical hernia. 4. No bowel obstruction. Normal appendix. RL: [id number] End of Report Orders and Treatments Orders Placed This Encounter Procedures CT ABDOMEN PELVIS W CONTRAST XR CHEST 1 VW CBC WITH DIFF COMP. METABOLIC PANEL (30772) LIPASE TROPONIN I N-TERMINAL PRO-BNP Lactic Acid Whole Blood URINALYSIS BLOOD CULTURE SCREEN BLOOD CULTURE SCREEN CBC with Differential Basic Metabolic Panel (NA, K, CL, CO2, GLUCOSE, BUN, CREATININE, CA) Hepatic Function Panel (32036) (ALB,T.PRO,BILI T,BU/BC,ALT,AST,ALK PHOS) Ethanol Salicylate Prothrombin Time / INR Urinalysis Microscopic Orders Placed This Encounter Medications iopamidol (ISOVUE 370-500 mL) injection 85 mL morpHINE (4 mg/mL) injection 4 mg ondansetron (ZOFRAN (PF)) injection 4 mg piperacillin-tazobactam (ZOSYN) 3.375 g in NaCl 0.9% (NS) 100 mL MINI-BAG NaCl 0.9% (NS) IV infusion 1,000 mL enoxaparin (LOVENOX) injection 40 mg acetaminophen (TYLENOL) tablet 650 mg HYDROcodone-acetaminophen (NORCO 5) 5-325 mg tablet 1 tablet morpHINE (4 mg/mL) injection 4 mg ondansetron (ZOFRAN (PF)) injection 4 mg Procedures EKG Time 1624 Rate 96 Normal sinus Jenkinjones normal Intervals normal No acute ischemia Notes & MDM Patient was evaluated for an emergency medical condition related to Abdominal Pain DDX Bowel obstruction Pancreatitis Colitis Appendicitis Diagnosis/Impression as of 04/23/24 2159 Generalized abdominal pain Medical Decision Making Problems Addressed: Generalized abdominal pain: acute illness or injury Amount and/or Complexity of Data Reviewed Labs: ordered. Decision-making details documented in ED Course. Radiology: ordered and independent interpretation performed. Decision-making details documented in ED Course. Risk Prescription drug management. Parenteral controlled substances. Decision regarding hospitalization. AdmissionCare Guideline: Abdominal Pain, Undiagnosed, Inpatient Based on the indications selected for the patient, the bed status of Inpatient was determined to be MET The following indications were selected as present at the time of evaluation of the patient: - Severe abdominal tenderness AdmissionCare documentation entered by: Toby Mitchell [facility] [employer], 28th edition, Copyright ? 2023 [facility] [employer] All Rights Reserved. [id number] Limitations to patient care and compliance: none. Assessment/Summary: The patient is a 53-year-old gentleman who presents for diffuse abdominal pain. He states while working he developed this pain and decided to activate EMS. He may have some nausea but no vomiting. No diarrhea. On exam he has generalized abdominal tenderness. Workup demonstrates that he has a white count of 23,000. CT of the abdomen pelvis does not demonstrate any acute process. It is unclear whether leukocytosis is coming from. Chest x-ray was negative for pneumonia. Urine was clean. Blood cultures were sent and the patient was given a dose of Zosyn. Because of the patient's undifferentiated abdominal pain and leukocytosis I have elected to admit the patient. History, physical exam findings, results of visit, differential diagnosis, medication regimens and plan of future care have been considered. Additional MDM may be found in the ED course. Differential diagnosis considered and final disposition made based on information gathered during evaluation and may not be completely ruled out or specifically listed. Vital signs were rechecked before final disposition. Diagnosis Final diagnoses: [R10.84] Generalized abdominal pain (Primary) Disposition & Follow Up ED Disposition ED Disposition Admit - Observation Condition -- Comment Treatment Team: [facility] [[id number]] There are no discharge medications for this patient. Toby Mitchell Jr., MD Clinical Absorption And Adsorption Engineer [facility] Emergency Department [employer] is used frequently and may produce errors. Promptly contact for obvious discrepancies. Toby Mitchell MD 04/23/24 2200 [facility] EMERGENCY PHYSICIAN [facility]
[2024-09-01] MEDS ORDERED: MORPHINE 2 MG/ML SYR ONE (06:44)
[2024-09-01] MEDS ORDERED: MORPHINE 4 MG/ML SYR ONE (06:44)
[2024-09-01] MEDS ORDERED: FAMOTIDINE 20 MG/2 ML VIAL IV ONE (06:44)
[2024-09-01] MEDS ORDERED: ONDANSETRON 4 MG/2 ML VIAL ONE (06:44)
[2024-09-01] MEDS ORDERED: KETOROLAC 30 MG/ML INJ ONE (06:44)
[2024-09-01 06:45] LABS: Absolute Basophils 0.1 K/uL (0-0.5); Absolute Lymphocytes (CBC) 1.9 K/uL (0.7-4.9); Absolute Monocytes 1.8 K/uL (0.1-1.3); Absolute Neutrophil 19.7 K/uL (1.8-8.0); Basophils % 0.6 % (0-1.3); Eosinophils % 0.2 % (0-4.4); Hematocrit 48.5 % (39.6-49.0); Hemoglobin 16.4 g/dL (13.6-17.9); Lymphocytes % 8.2 % (15.3-44.8); MCH 32.2 pg (27.0-35.0); MCHC 33.8 g/dL (32.0-36.0); MPV 8.3 fL (7.6-11.3); Monocytes % 7.6 % (3.3-12.3); Neutrophils % 83.4 % (41.7-73.7); Platelets 245 thou/uL (152-406); RBC Red Blood Cell Count 5.11 M/uL (4.33-5.43); Red Cell Distribution Width 13.5 % (12.1-15.2)
[2024-09-01] MEDS ORDERED: NA CHLORIDE 0.9% 1,000 ML ONE ×2 (06:45→08:50)
[2024-09-01 06:56] LABS: Albumin/Globulin Ratio 1.1 (1.1-1.8); Anion Gap 8.7 mEq/L (5.0-15.0); Bilirubin Total 0.9 mg/dL (0.2-1.0); C-Reactive Protein 12.9 mg/L (<3.00); Globulin 3.6 g/dL (2.3-3.5); Potassium 3.7 mEq/L (3.5-5.1); Protein, Total 7.6 g/dL (6.4-8.2)
[2024-09-01 07:15] LABS: Specific Gravity 1.025 (1.005-1.030); Urine Bilirubin NEGATIVE (Negative); Urine Blood Negative (Negative); Urine Clarity Clear (Clear); Urine Color Yellow (Yellow); Urine Glucose NEGATIVE (Negative); Urine Ketones NEGATIVE (Negative); Urine Microscopic Reflex YN NO UMIC; Urine Nitrite NEGATIVE (Negative); Urine Protein NEGATIVE (Negative); Urine Urobilinogen Normal (Normal)
--- NOTE | 2024-09-01 07:38 | RAD REPORT ---
EXAMINATION: CT ABDOMEN AND PELVIS WITH CONTRAST CLINICAL INDICATION: Male, 53 years old.ABD PAIN TECHNIQUE: CT abdomen and pelvis was performed, after the administration of IV [facility]. Axial, sagittal and coronal reconstructions were obtained. One or more of the following dose reduction techniques were used: Automated exposure control, adjustment of the mA and/o r kV according to patient size, and/or iterative reconstruction. Unless otherwise specified, incidental findings do not require dedicated imaging follow-up. [id number]. COMPARISON: No prior exam. FINDINGS: LOWER CHEST: Nodular airspace disease present in the left lower lobe. Small hiatal hernia. LIVER: Hepatic steatosis. No suspicious liver mass. GALLBLADDER/BILE DUCT: No biliary ductal dilatation.?Distended gallbladder but no pericholecystic inf lammatory changes. No radiopaque gallstones. PANCREAS: No significant abnormality. SPLEEN: Normal size. No focal lesion. ADRENALS: Normal; no mass. KIDNEYS AND URETERS: Normal size and contour. No hydronephrosis. GASTROINTESTINAL TRACT: Fecal last small bowel contents within the central abdomen suggesting slow tr ansit. No bowel obstruction is identified. No appendicitis. Mild to moderate colonic stool. PERITONEUM: No ascites. Small fat-containing umbilical hernia. LYMPH NODES: No lymphadenopathy. ABDOMINAL AORTA AND OTHER VESSELS: Normal caliber aorta and IVC. URINARY BLADDER: Normal contour. REPRODUCTIVE ORGANS: No pathologic process MUSCULOSKELETAL: No acute or suspicious osseous abnormality. ADDITIONAL FINDINGS: None. IMPRESSION: 1. No acute or significant abnormalities seen in the abdomen or pelvis. 2. Mild airspace disease in left lower lobe concerning for mild pneumonia or pneumonitis.
[2024-09-01 07:44] LABS: Differential Total Cells Count 100
[2024-09-01 07:47] LABS: Atypical Lymphocytes 1 %; Band Neutrophils 5 % (0-1); Blood Morphology Comment NOT SEEN (NOT SEEN); Lymphocytes 12 % (15-42); Monocytes 12 % (0-10); Platelet Estimate ADEQ; Segmented Neutrophils 70 % (40-80)
--- NOTE | 2024-09-01 08:02 | EDPHYS ---
Physician Documentation [facility] Name: Denny Velez Jr Age: 53 yrs Sex: Male : 1970 Arrival Date: 09/01/2024 Time: 06:24 Bed 5 Private MD: ED Physician Albino Jarrett HPI: 09/01 06:27 This 53 yrs old Male presents to ER via Unassigned with complaints of sp4 Abdominal Pain. 07:03 53-year-old male with history of hiatal hernia presents with acute intermittent sp4 moderate to severe upper abdominal pain associate with vomiting. Patient presents with EMS. Historical: - Allergies: 06:33 NKA; lg3 - Home Meds: 06:33 Nexium Oral [Active]; lg3 - PMHx: 06:33 None; lg3 - PSHx: 06:33 None; lg3 - Immunization history:: Adult Immunizations up to date. - Infectious Disease History:: Denies. - Social history:: Smoking status: Patient denies any tobacco usage or history of. Patient/guardian denies using alcohol, street drugs. - Family history:: not pertinent. ROS: 07:04 Constitutional: Negative for fever, chills, and weight loss, positive upper abdominal sp4 pain and vomiting 07:04 All other systems are negative, Exam: 07:04 Constitutional: This is a well developed, well nourished patient who is awake, alert, sp4 and in no acute distress. Head/Face: Normocephalic, atraumatic. Eyes: Pupils equal round and reactive to light, extra-ocular motions intact. Lids and lashes normal. Conjunctiva and sclera are not injected. Cornea within normal limits. Periorbital areas with no swelling, redness, or edema. ENT: Nares patent. No nasal discharge, no septal abnormalities noted. Tympanic membranes are normal and external auditory canals are clear. Oropharynx with no redness, swelling, or masses, exudates, or evidence of obstruction, uvula midline. Mucous membranes moist. Neck: Trachea midline, no thyromegaly or masses palpated, and no cervical lymphadenopathy. Supple, full range of motion without nuchal rigidity, or vertebral point tenderness. Chest/axilla: Normal chest wall appearance and motion. Nontender with no deformity. No lesions are appreciated. Cardiovascular: Regular rate and rhythm with a normal S1 and S2. No gallops, murmurs, or rubs. Normal PMI, no JVD. No pulse deficits. Respiratory: Lungs have equal breath sounds bilaterally, clear to auscultation and percussion. No rales, rhonchi or wheezes noted. No increased work of breathing, no retractions or nasal flaring. Abdomen/GI: Soft, with normal bowel sounds. No distension or tympany. No guarding or rebound. No evidence of tenderness throughout. Back: No spinal tenderness. No costovertebral tenderness. Skin: Warm, dry with normal turgor. Normal color with no rashes, no lesions, and no evidence of cellulitis. MS/ Extremity: Pulses equal, no cyanosis. Neurovascular intact. Full, normal range of motion. Neuro: Awake and alert, GCS 15, oriented to person, place, time, and situation. Cranial nerves II-XII grossly intact. Motor strength 5/5 in all extremities. Sensory grossly intact. Psych: Awake, alert, with orientation to person, place and time. Behavior, mood, and affect are within normal limits Vital Signs: 06:33 BP 159 / 102; Pulse 101; Resp 19 S; Temp 98.8(O); Pulse Ox 96% on R/A; Weight 83.01 kg lg3 (R); Height 5 ft. 9 in. (R); Pain 6/10; 07:00 BP 126 / 87; Pulse 91; Resp 18; Pulse Ox 95% on R/A; ph 08:00 BP 107 / 79; Pulse 84; Resp 18; Pulse Ox 95% on R/A; ph 09:00 BP 107 / 59; Pulse 74; Resp 16; Pulse Ox 99% on R/A; ph 09:45 BP 102 / 59; Pulse 77; Resp 18; Pulse Ox 94% on R/A; ph 10:40 BP 100 / 70; Pulse 65; Resp 17; Temp 98.8; Pulse Ox 96% on 2 lpm NC; MAP 79 mmHg; Pain tm6 0/10; 06:33 Body Mass Index 27.02 (83.01 kg, 175.26 cm) lg3 06:33 Pain Scale: Adult lg3 10:40 Pain Scale: Adult tm6 Maurice Coma Score: 07:04 Eye Response: spontaneous(4). Motor Response: obeys commands(6). Verbal Response: sp4 oriented(5). Total: 15. MDM: 06:28 Patient medically screened. sp4 07:04 Differential diagnosis: appendicitis, bowel obstruction, cholecystitis, Cholelithiasis, sp4 diverticulitis, gastritis. Data reviewed: vital signs, nurses notes, EMS record, lab test result(s), radiologic studies, CT scan. Consideration of Admission/Observation Escalation of care including admission/observation considered. Transition of care: After a detail discussion of the patient's case, care is transferred to Gilbert Osborne MD. ED course: Patient care will be transferred to Dr. Osborne. 07:55 ED course: EXAMINATION: CTABDOMEN AND PELVIS WITH CONTRAST CLINICAL INDICATION: Male, sp4 53 years old.ABD PAIN TECHNIQUE: CT abdomen and pelvis was performed, after the administration of IV contrast, as per department protocol. Axial, sagittal and coronal reconstructions were obtained. One or more of the following dose reduction techniques were used: Automated exposure control, adjustment of the mA and/or kV according to patient size, and/or iterative reconstruction. Unless otherwise specified, incidental findings do not require dedicated imaging follow-up. [id number]. COMPARISON: No prior exam. FINDINGS: LOWER CHEST: Nodular airspace disease present in the left lower lobe. Small hiatal hernia. LIVER: Hepatic steatosis. No suspicious liver mass. GALLBLADDER/BILE DUCT: No biliary ductal dilatation.?Distended gallbladder but no pericholecystic inflammatory changes. No radiopaque gallstones. PANCREAS: No significant abnormality. SPLEEN: Normal size. No focal lesion. ADRENALS: Normal; no mass. KIDNEYS AND URETERS: Normal size and contour. No hydronephrosis. GASTROINTESTINAL TRACT: Fecal last small bowel contents within the central abdomen suggesting slow transit. No bowel obstruction is identified. No appendicitis. Mild to moderate colonic stool. PERITONEUM: No ascites. Small fat-containing umbilical hernia. LYMPH NODES: No lymphadenopathy. ABDOMINAL AORTA AND OTHER VESSELS: Normal caliber aorta and IVC. URINARYBLADDER: Normal contour. REPRODUCTIVE ORGANS: No pathologic process MUSCULOSKELETAL: No acute or suspicious osseous abnormality. ADDITIONAL FINDINGS: None. IMPRESSION: 1. No acute or significant abnormalities seen in the abdomen or pelvis. 2. Mild airspace disease in left lower lobe concerning for mild pneumonia or pneumonitis. . 08:02 Management of patient was discussed with the following: Hospitalist: Admit team . ED sp4 course: sepsis -reevaluation complete. Will administer septic dose of IV fluids. 09/01 06:28 Order name: CBC with Diff; Complete Time: 07:59 sp4 09/01 06:28 Order name: CMP; Complete Time: 07:24 sp4 09/01 06:28 Order name: Lipase; Complete Time: 07:24 sp4 09/01 06:28 Order name: Urinalysis w/ reflexes; Complete Time: 07:24 sp4 09/01 06:28 Order name: CRP; Complete Time: 07:24 sp4 09/01 06:54 Order name: Manual Differential; Complete Time: 07:59 EDMS 09/01 07:25 Order name: Blood Culture Adult (2) sp4 09/01 07:59 Order name: Troponin High Sensitivity sp4 09/01 07:59 Order name: BNP sp4 09/01 10:02 Order name: H.PYLORI AG EDMS 09/01 10:02 Order name: CBC with Automated Diff EDMS 09/01 10:02 Order name: CBC with Automated Diff EDMS 09/01 10:02 Order name: CBC with Automated Diff EDMS 09/01 10:02 Order name: CBC with Automated Diff EDMS 09/01 10:02 Order name: Comprehensive Metabolic Panel EDMS 09/01 10:02 Order name: Comprehensive Metabolic Panel EDMS 09/01 10:02 Order name: Comprehensive Metabolic Panel EDMS 09/01 10:02 Order name: Comprehensive Metabolic Panel EDMS 09/01 10:02 Order name: Lipid Profile EDMS 09/01 10:02 Order name: Lipid Profile EDMS 09/01 10:02 Order name: Magnesium EDMS 09/01 10:02 Order name: Magnesium EDMS 09/01 10:02 Order name: Magnesium EDMS 09/01 10:02 Order name: Magnesium EDMS 09/01 06:28 Order name: CT Abd/Pelvis - IV Contrast Only; Complete Time: 07:59 sp4 09/01 08:05 Order name: US Abdomen Limited; Complete Time: 08:51 snw 09/01 06:28 Order name: IV Saline Lock; Complete Time: 06:34 sp4 09/01 06:28 Order name: Labs collected and sent; Complete Time: 06:34 sp4 Administered Medications: 06:48 Drug: NS 0.9% IV 1000 ml IV at 1 bolus Per protocol; 1000 mL bolus Route: IV; Rate: 1 lg3 bolus; Site: right forearm; 10:38 Follow up: Response: No adverse reaction; IV Status: Completed infusion; IV Intake: tm6 1000ml 06:48 Drug: Famotidine IVP 20 mg IVP once; dilute with 10 mL 0.9% NaCl; give over 2 minutes lg3 Route: IVP; Site: right forearm; 10:38 Follow up: Response: No adverse reaction tm6 06:49 Drug: TORadol - Ketorolac IVP 30 mg IVP once Route: IVP; Site: right forearm; lg3 10:38 Follow up: Response: No adverse reaction tm6 06:49 Drug: Ondansetron IVP 4 mg IVP once; over 2 minutes Route: IVP; Site: right forearm; lg3 10:38 Follow up: Response: No adverse reaction tm6 06:49 Drug: morphine IVP or IV 6 mg IVP once over 4 mins Route: IVP; Infused Over: 4 mins; lg3 Site: right forearm; 10:39 Follow up: Response: No adverse reaction tm6 08:45 Drug: Rocephin - Rocephin (cefTRIAXone) IVPB 1 grams IVPB once over 30 mins; (mix in 50 ph mL NS) Route: IVPB; Infused Over: 30 mins; Site: right forearm; 10:37 Follow up: Response: No adverse reaction; IV Status: Completed infusion; IV Intake: [id number] 08:45 Drug: HYDROcodone-acetaminophen PO 5 mg-325 mg 2 tabs PO once Route: PO; ph 10:38 Follow up: Response: No adverse reaction tm6 08:45 Drug: metoCLOPramide IVP 10 mg IVP once; over 1 to 2 minutes Route: IVP; Site: right ph forearm; 10:37 Follow up: Response: No adverse reaction tm6 08:45 Drug: NS 0.9% IV (30 ml/kg) 30 ml/kg IV at bolus once; Sepsis Protocol Route: IV; Rate: ph bolus; Site: right forearm; 10:37 Follow up: Response: No adverse reaction; IV Status: Completed infusion; IV Intake: tm6 2409.3ml 09:15 Drug: metroNIDAZOLE IVPB 500 mg 100 ml IVPB at 200 ml/hr once over 30 mins Volume: 100 ph ml; Route: IVPB; Rate: 200 ml/hr; Infused Over: 30 mins; Site: right forearm; 10:37 Follow up: Response: No adverse reaction; IV Status: Completed infusion; IV Intake: tm6 100ml Disposition Summary: 09/01/24 08:02 Hospitalization Ordered Notes: Hospitalization Status: Inpatient Admission sp4 Provider: Elliott Vega sp4 Location: Telemetry/[facility] (Inpatient) sp4 Condition: Stable sp4 Problem: new sp4 Symptoms: have improved sp4 Bed/Room Type: Standard sp4 Room Assignment: 231(09/01/24 10:20) bc6 Diagnosis - Severe sepsis without septic shock sp4 - Upper abdominal pain, acute gastritis, sp4 Forms: - Medication Reconciliation Form sp4 - SBAR form sp4 - Leadership Thank You Letter sp4 Critical care time excluding procedures: 08:11 Critical care time: Bedside Care: 36 minutes, Consultation: 12 minutes, Family sp4 Intervention: 12 minutes. Total time: 60 minutes Signatures: Dispatcher [employer] EDMS Hilary Osman, COMMANDING OFFICER GARAGE-C COMMANDING OFFICER GARAGE-Csnw Ashley Moody, RN RN ph AbleMiley RN RN lg3 Luz Marina Jones bc6 Albino Jarrett MD MD sp4 Kenney Hardwick RN tm6 Corrections: (The following items were deleted from the chart) 06:28 06:28 CBC+H.LAB.BRZ ordered. EDMS EDMS 06:28 06:28 COMPREHENSIVE METABOLIC PANEL+C.LAB.BRZ ordered. EDMS EDMS 06:28 06:28 LIPASE+C.LAB.BRZ ordered. EDMS EDMS 06:28 06:28 Urinalysis+U.LAB.BRZ ordered. EDMS EDMS 06:28 06:28 Abdomen Pelvis W Con+CT.RAD.BRZ ordered. EDMS EDMS 10:20 08:02 sp4 bc6
--- NOTE | 2024-09-01 08:02 | ER ---
Nurse's Notes [facility] Name: Denny Velez Jr Age: 53 yrs Sex: Male : 1970 Arrival Date: 09/01/2024 Time: 06:24 Bed 5 Private MD: Diagnosis: Severe sepsis without septic shock;Upper abdominal pain, acute gastritis, Presentation: 09/01 06:31 Chief complaint: Patient states: upper abdominal pain X3 months. Coronavirus screen: lg3 Client denies travel out of the [place] in the last 14 days. At this time, the client does not indicate any symptoms associated with coronavirus-19. Ebola Screen: No symptoms or risks identified at this time. Risk Assessment: Do you want to hurt yourself or someone else? Patient reports no desire to harm self or others. Onset of symptoms is unknown. 06:31 Method Of Arrival: EMS: [facility] 3 06:31 Acuity: PRANEETH 3 lg3 09:47 Initial Sepsis Screen: Does the patient meet any 2 criteria? No. Patient's initial ph sepsis screen is negative. Does the patient have a suspected source of infection? No. Patient's initial sepsis screen is negative. Triage Assessment: 06:33 General: Appears in no apparent distress. uncomfortable, Behavior is cooperative, lg3 anxious. Pain: Complains of pain in abdomen Pain currently is 6 out of 10 on a pain scale. EENT: No deficits noted. No signs and/or symptoms were reported regarding the EENT system. Neuro: No deficits noted. Gonsales Agitation-Sedation Scale (RASS): 0 - Alert and Calm Level of Consciousness is awake, alert, obeys commands, Oriented to person, place, time, situation. Cardiovascular: No deficits noted. Denies chest pain, shortness of breath, Capillary refill < 3 seconds Clubbing of nail beds is absent JVD is absent Patient's skin is warm and dry. Respiratory: No deficits noted. Airway is patent Respiratory effort is even, unlabored, Respiratory pattern is regular, symmetrical. GI: Abdomen is round Reports lower abdominal pain, upper abdominal pain. : No signs and/or symptoms were reported regarding the genitourinary system. Derm: No deficits noted. No signs and/or symptoms reported regarding the dermatologic system. Skin is intact, is healthy with good turgor, Skin is dry, Skin is normal, Skin temperature is warm. Musculoskeletal: No deficits noted. No signs and/or symptoms reported regarding the musculoskeletal system. Circulation, motion, and sensation intact. Range of motion: intact in all extremities. Historical: - Allergies: 06:33 NKA; lg3 - Home Meds: 06:33 Nexium Oral [Active]; lg3 - PMHx: 06:33 None; lg3 - PSHx: 06:33 None; lg3 - Immunization history:: Adult Immunizations up to date. - Infectious Disease History:: Denies. - Social history:: Smoking status: Patient denies any tobacco usage or history of. Patient/guardian denies using alcohol, street drugs. - Family history:: not pertinent. Screenin:08 [facility] ED Fall Risk Assessment (Adult) History of falling in the last 3 months, bm8 including since admission No falls in past 3 months (0 pts) Confusion or Disorientation No (0 pts) Intoxicated or Sedated No (0 pts) Impaired Gait No (0 pts) Mobility Assist Device Used No (0 pt) Altered Elimination No (0 pt) Score/Fall Risk Level 0 - 2 = Low Risk Oriented to surroundings, Maintained a safe environment, Educated pt \\T\\ family on fall prevention, incl call for assistance when getting out of bed, Assessed \\T\\ reinforced patient's understanding of fall precautions, Hourly rounding (assess needs \\T\\ fall precautionary measures) done, Used ambulatory aids as needed (educated on \\T\\ assisted with), Used gait belt as appropriate. Abuse screen: Denies threats or abuse. Nutritional screening: No deficits noted. Tuberculosis screening: No symptoms or risk factors identified. Assessment: 07:30 General: Appears in no apparent distress. Behavior is calm, cooperative, Reports chills ph for fever for. Pain: Complains of pain in abdomen. Neuro: Level of Consciousness is awake, alert, obeys commands, Oriented to person, place, time, situation. Cardiovascular: Capillary refill < 3 seconds in bilateral fingers Patient's skin is warm and dry. Respiratory: Airway is patent Respiratory effort is even, unlabored, Respiratory pattern is regular, symmetrical. GI: Abdomen is non-distended, Bowel sounds present X 4 quads. Abd is soft X 4 quads Reports upper abdominal pain, nausea, vomiting. Derm: Skin is pink, warm \\T\\ dry. Musculoskeletal: Circulation, motion, and sensation intact. Range of motion: intact in all extremities. 09:00 Reassessment: Patient appears in no apparent distress at this time. Patient and/or ph family updated on plan of care and expected duration. Pain level reassessed. Patient is alert, oriented x 3, equal unlabored respirations, skin warm/dry/pink. 10:46 Reassessment: report faxed to [facility]. tm6 Vital Signs: 06:33 BP 159 / 102; Pulse 101; Resp 19 S; Temp 98.8(O); Pulse Ox 96% on R/A; Weight 83.01 kg lg3 (R); Height 5 ft. 9 in. (R); Pain 6/10; 07:00 BP 126 / 87; Pulse 91; Resp 18; Pulse Ox 95% on R/A; ph 08:00 BP 107 / 79; Pulse 84; Resp 18; Pulse Ox 95% on R/A; ph 09:00 BP 107 / 59; Pulse 74; Resp 16; Pulse Ox 99% on R/A; ph 09:45 BP 102 / 59; Pulse 77; Resp 18; Pulse Ox 94% on R/A; ph 10:40 BP 100 / 70; Pulse 65; Resp 17; Temp 98.8; Pulse Ox 96% on 2 lpm NC; MAP 79 mmHg; Pain tm6 0/10; 06:33 Body Mass Index 27.02 (83.01 kg, 175.26 cm) lg3 06:33 Pain Scale: Adult lg3 10:40 Pain Scale: Adult tm6 Maurice Coma Score: 07:04 Eye Response: spontaneous(4). Motor Response: obeys commands(6). Verbal Response: sp4 oriented(5). Total: 15. ED Course: 06:24 Patient arrived in ED. jj6 06:26 Inserted saline lock: 20 gauge in right forearm, using aseptic technique. Blood ty collected. Flushed with 10 mL NS. 06:27 Albino Jarrett MD is Attending Physician. sp4 06:33 Triage completed. lg3 06:33 Arm band placed on right wrist. lg3 06:34 CRP Sent. ty 06:34 CBC with Diff Sent. ty 06:34 CMP Sent. ty 06:34 Lipase Sent. ty 07:08 Mathew John, RN is Primary Nurse. bm8 07:08 No provider procedures requiring assistance completed. bm8 07:08 Patient has correct armband on for positive identification. Bed in low position. Call bm8 light in reach. Side rails up X 1. Adult w/ patient. Client placed on continuous cardiac and pulse oximetry monitoring. NIBP monitoring applied. Pulse ox on. NIBP on. Door closed. Noise minimized. Warm blanket given. Pillow given. Verbal reassurance given. 07:09 Report given to ROSARIO Garibay. bm8 07:24 CT Abd/Pelvis - IV Contrast Only In Process Unspecified. EDMS 08:01 Elliott Vega is Hospitalizing Provider. sp4 08:43 US Abdomen Limited In Process Unspecified. EDMS 08:45 Primary Nurse role handed off by Mathew John, RN ph 08:45 Ashley Moody, RN is Primary Nurse. ph 09:37 0848 CM attempted initial assessment, patient lying in bed with eyes closed, ane respirations even and unlabored. 0937 CM met with at the bedside in the ED exam room. Patient identified by name and . Demographic sheet confirmed. Patient states he lives with his in a single story home but is currently "downsizing" and moving into an . No DME, no HH, no home oxygen, or other medical services at this time. Patient reports that prior to admission, he performs ADLs independently and without physical limitations. NO MPOA in place. Patient provided an insurance card for prescriptions, and is unsure where is medical insurance card is. He states he will ask his to bring the card when she visits. provided card to [employer] to confirm it is a prescription card only, and Patient physician representative ran patient information through system and did not find current insurance at this time. Patient's plan is to return home upon discharge and that his Ashley will transport him home. CM team will continue to follow and coordinate care during this hospital stay. 09:47 Patient admitted, IV remains in place. ph 11:33 Provided Education on: need for admit. tm6 Administered Medications: 06:48 Drug: NS 0.9% IV 1000 ml IV at 1 bolus Per protocol; 1000 mL bolus Route: IV; Rate: 1 lg3 bolus; Site: right forearm; 10:38 Follow up: Response: No adverse reaction; IV Status: Completed infusion; IV Intake: tm6 1000ml 06:48 Drug: Famotidine IVP 20 mg IVP once; dilute with 10 mL 0.9% NaCl; give over 2 minutes lg3 Route: IVP; Site: right forearm; 10:38 Follow up: Response: No adverse reaction tm6 06:49 Drug: TORadol - Ketorolac IVP 30 mg IVP once Route: IVP; Site: right forearm; lg3 10:38 Follow up: Response: No adverse reaction tm6 06:49 Drug: Ondansetron IVP 4 mg IVP once; over 2 minutes Route: IVP; Site: right forearm; lg3 10:38 Follow up: Response: No adverse reaction tm6 06:49 Drug: morphine IVP or IV 6 mg IVP once over 4 mins Route: IVP; Infused Over: 4 mins; lg3 Site: right forearm; 10:39 Follow up: Response: No adverse reaction tm6 08:45 Drug: Rocephin - Rocephin (cefTRIAXone) IVPB 1 grams IVPB once over 30 mins; (mix in 50 ph mL NS) Route: IVPB; Infused Over: 30 mins; Site: right forearm; 10:37 Follow up: Response: No adverse reaction; IV Status: Completed infusion; IV Intake: [id number] 08:45 Drug: HYDROcodone-acetaminophen PO 5 mg-325 mg 2 tabs PO once Route: PO; ph 10:38 Follow up: Response: No adverse reaction tm6 08:45 Drug: metoCLOPramide IVP 10 mg IVP once; over 1 to 2 minutes Route: IVP; Site: right ph forearm; 10:37 Follow up: Response: No adverse reaction tm6 08:45 Drug: NS 0.9% IV (30 ml/kg) 30 ml/kg IV at bolus once; Sepsis Protocol Route: IV; Rate: ph bolus; Site: right forearm; 10:37 Follow up: Response: No adverse reaction; IV Status: Completed infusion; IV Intake: tm6 2409.3ml 09:15 Drug: metroNIDAZOLE IVPB 500 mg 100 ml IVPB at 200 ml/hr once over 30 mins Volume: 100 ph ml; Route: IVPB; Rate: 200 ml/hr; Infused Over: 30 mins; Site: right forearm; 10:37 Follow up: Response: No adverse reaction; IV Status: Completed infusion; IV Intake: tm6 100ml Medication: 07:08 VIS not applicable for this client. bm8 Intake: 10:37 IV: 50ml; Total: 50ml. tm6 10:37 IV: 100ml; Total: 150ml. tm6 10:37 IV: 2409ml; Total: 2559ml. tm6 10:38 IV: 1000ml; Total: 3559ml. tm6 Outcome: 08:02 Decision to Hospitalize by Provider. sp4 11:33 Admitted to Med/surg accompanied by nurse, via wheelchair, room 231, with chart, tm6 11:33 Condition: stable 11:33 Instructed on the need for admit, 11:33 Patient left the ED. tm6 Signatures: Dispatcher [employer] EDAshley Lopez RN RN Able, Miley RN RN lg3 Isabella Newman6 Albino Jarrett MD MD sp4 Kenney Hardwick RN RN tm6 Bruce Simpson Brad RN ROSARIO bm8 Lyla Dawkins RN RN ane Corrections: (The following items were deleted from the chart) 09:45 09:44 Rocephin - Rocephin (cefTRIAXone) IVPB 1 grams IVPB in right forearm over 30 mins ph ph 09:45 09:44 metroNIDAZOLE IVPB 500 mg 100 ml IVPB at 200 ml/hr in right forearm over 30 mins ph ph 09:45 09:44 HYDROcodone-acetaminophen PO 5 mg-325 mg 2 tabs PO ph ph 09:45 09:44 metoCLOPramide IVP 10 mg IVP in right forearm ph ph 09:45 09:44 NS 0.9% IV (30 ml/kg) 2490.3 mL IV at bolus in right forearm ph ph
[2024-09-01] MEDS ORDERED: CEFTRIAXONE 1000 MG/VIAL ONE (08:10)
[2024-09-01] MEDS ORDERED: METOCLOPRAMIDE 10 MG/2mL INJ ONE (08:11)
[2024-09-01] MEDS ORDERED: HYDROCODONE/APAP 5/325 MG TAB ONE (08:11)
[2024-09-01] MEDS ORDERED: METRONIDAZOLE 500mg IVPB 500 MG/100 ML BAG IV ONE (08:11)
[2024-09-01] MEDS ORDERED: NA CHLORIDE 0.9% 50 ML ONE (08:11)
[2024-09-01] MEDS ORDERED: NA CHLORIDE 0.9% 100 ML ONE (08:11)
--- NOTE | 2024-09-01 08:48 | RAD REPORT ---
Abdomen Exam Limited: 09/01/2024 8:41 AM CLINICAL HISTORY: ABD PAIN STUDY: Limited right upper quadrant ultrasound of abdomen. COMPARISON: Same day CT FINDINGS: Liver: No significant abnormality. Bile ducts: No intrahepatic or extrahepatic biliary dilatation. Common bile duct measures 5 mm. Gallbladder: Distended gallbladder with sludge. No gallbladder wall thickening, pericholecystic fluid , or sonographic Ohara sign. Negative for cholelithiasis. IMPRESSION: Distended gallbladder with sludge may be from fasting. Negative for cholelithiasis or acute cholecyst itis.
--- NOTE | 2024-09-01 08:49 | P.HP ---
Certification for Inpatient Patient admitted to: Inpatient With expected LOS: >2 Midnights Practitioner: I am a practitioner with admitting privileges, knowledge of patient current condition, hospital course, and medical plan of care. Services: Services provided to patient in accordance with Admission requirements found in Title 42 Section 412.3 of the Code of Federal Regulations Patient History Date of Service: 09/01/24 Reason for admission: Abdominal pain with leukocytosis History of Present Illness: Mr. Velez is a 53-year-old gentleman with a past medical history of severe GERD. He states his only medication is Nexium which she takes daily. He gives a history of persistent shortness of breath with use of albuterol after an infection with COVID. Mr. Velez presented to the emergency department with significant upper abdominal pain with some vomiting. CT evaluation of the abdomen was said to be unremarkable. CT report also shows, "Mild airspace disease in left lower lobe concerning for mild pneumonia or pneumonitis". Gallbladder ultrasound shows "distended gallbladder with sludge may be from fasting. Negative for cholelithiasis or acute cholecystitis." Laboratory evaluation significant for leukocytosis at 23.5 with neutrophils of 83.4%, absolute neutrophils 19.7 and bands of 5. Upon entering Mr. Velez's room for assessment, he was sleeping with the head of the bed up 30 degrees, noted seesaw respirations with obvious periods of sleep apnea. He awakened easily and gives a history of severe GERD. He states 3 months ago he was admitted for a similar episode and at that time also had pneumonia/pneumonitis. We will admit the patient for severe esophagitis/gastritis with probable aspiration of acid compounded by sleep apnea. Allergies No Known Allergies Allergy (Unverified 04/25/17 22:06) Home medications list reviewed: Yes (Nexium and albuterol) Home Medications: Albuterol Sulfate [Proair Hfa] 8.5 gm IH TID PRN #1 hfa.aer.ad 05/26/18 Aspirin [Aspirin EC 81 MG] 81 mg PO DAILY #90 tablet. 05/26/18 Fluticasone Propion/Salmeterol [Airduo Respiclick 113-14 Mcg] 1 each IH BID #1 aer.pow.ba 05/26/18 Nicotine [Nicoderm*] 21 mg TD DAILY #30 patch.td24 05/26/18 Pantoprazole [Protonix Tab] 40 mg PO DAILY #30 tab 05/26/18 Tramadol HCl [Ultram] 50 mg PO TID PRN #10 tablet 05/26/18 - Past Medical/Surgical History Has patient received pneumonia vaccine in the past: No Diabetic: No -: GERD -: hx of pneumonia -: tonsillectomy -: kidney surgery Psychosocial/ Personal History: Lives at home with his family. Quit smoking 3 years ago. States reflux is so bad he often vomits on awakening or even with bending over. - Family History Father -: Diabetes Mother -: Diabetes - Social History Smoking Status: Former smoker Alcohol use: No CD- Drugs: No Caffeine use: Yes Place of Residence: Home Review of Systems 10-point ROS is otherwise unremarkable General: Malaise Eyes: Unremarkable ENT: Unremarkable Respiratory: Shortness of Breath, SOB with Excertion, Other (body aches) Cardiovascular: Unremarkable Gastrointestinal: Nausea, Vomiting, Abdominal Pain, Other (acid in mouth type reflux) Genitourinary: Unremarkable Musculoskeletal: Unremarkable Integumentary: Unremarkable Neurological: Unremarkable Lymphatics: Unremarkable Physical Examination - Vital Signs Blood Pressure: 107/79 Pulse: 100 Respirations: 18 Pulse Ox (%): 97 - Physical Exam General: Alert, In no apparent distress, Oriented x3, Other (on entering pt room, sleeping with HOB up 30 degrees, see saw resp with obvious apneic spells, no dx sleep apnea but characteristic ) HEENT: Atraumatic, Normocephalic Neck: Supple Respiratory: Normal air movement Cardiovascular: No edema, Normal pulses, Regular rate/rhythm Capillary refill: <2 Seconds Gastrointestinal: No tenderness, Other (firm), Distended Musculoskeletal: No clubbing, No swelling Integumentary: Other (some scabbed pustules to lower face and neck) Neurological: Normal speech, Normal tone, Normal affect Lymphatics: No axilla or inguinal lymphadenopathy External genitalia: Deferred Rectal: Deferred - Studies Laboratory Data (last 24 hrs) 09/01/24 09/01/24 06:30 06:30 WBC 23.50 H Hgb 16.4 Hct 48.5 Plt Count 245 Sodium 136 Potassium 3.7 BUN 21 H Creatinine 0.86 Glucose 145 H Total Bilirubin 0.9 AST 33 ALT 80 H Alkaline Phosphatase 84 Lipase 26 Assessment and Plan - Plan Abdominal pain with leukocytosis CT abdomen in the ED negative for acute abdomen, small bowel contents suggesting slow transit, no obstruction, questionable gallbladder distention Ultrasound abdomen limited "distended gallbladder with sludge may be from fasting. 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
[2024-09-01 09:33] LABS: Troponin High Sensitivity 16.5 pg/mL (<58.9)
[2024-09-01] MEDS ORDERED: SODIUM CHLORIDE 0.9% 10ML INJ IV PRN (09:52)
[2024-09-01] MEDS: ARFORMOTEROL TARTRATE 15 MCG/2 ML VIAL.NEB NEB SCH (10:30)
[2024-09-01] MEDS: NA CHLORIDE 0.9% 1,000 ML IV SCH (11:44)
[2024-09-01] MEDS: PIPER TAZO 3.375 GM in NA CHLORIDE 0.9% 100 ML IV SCH (11:44)
[2024-09-01] MEDS: SUCRALFATE 1 GM TABLET PO SCH (11:44)
[2024-09-01] MEDS: LACTULOSE 20 GM/30 ML UCUP PO ONE (11:45)
[2024-09-01] MEDS: ENOXAPARIN 40 MG/0.4 ML SQ SCH (11:46)
[2024-09-01 12:36] VITALS: BMI 27.0
[2024-09-01] MEDS: LIDOCAINE 1% MPF 5 ML VIAL ONE (14:34)
[2024-09-01] MEDS: propofoL 200 MG/20 ML VIAL IV ONE (14:35)
[2024-09-01] MEDS: PANTOPRAZOLE 40 MG INJ IVP SCH (21:55)
[2024-09-02 06:00] LABS: Absolute Basophils 0.1 K/uL (0-0.5); Absolute Eosinophils 0.2 K/uL (0-0.5); Absolute Lymphocytes (CBC) 1.9 K/uL (0.7-4.9); Absolute Neutrophil 10.7 K/uL (1.8-8.0); Basophils % 0.4 % (0-1.3); Eosinophils % 1.4 % (0-4.4); Hematocrit 40.8 % (39.6-49.0); Hemoglobin 13.7 g/dL (13.6-17.9); Lymphocytes % 13.5 % (15.3-44.8); MCH 32.5 pg (27.0-35.0); MCHC 33.6 g/dL (32.0-36.0); MCV 96.9 fL (80-100); MPV 7.9 fL (7.6-11.3); Monocytes % 7.1 % (3.3-12.3); Neutrophils % 77.6 % (41.7-73.7); Nucleated Red Blood Cells % 0.2 % (0-0); Platelets 184 thou/uL (152-406); RBC Red Blood Cell Count 4.21 M/uL (4.33-5.43); Red Cell Distribution Width 13.9 % (12.1-15.2)
[2024-09-02 06:23] LABS: ALT/SGPT 81 U/L (16-61); AST/SGOT 38 U/L (15-37); Albumin 2.9 g/dL (3.4-5.0); Albumin/Globulin Ratio 0.9 (1.1-1.8); Alkaline Phosphatase 54 U/L (45-117); Anion Gap 7.8 mEq/L (5.0-15.0); BUN Blood Urea Nitrogen 11 mg/dL (7-18); Bicarbonate 27 mEq/L (21-32); Bilirubin Total 0.8 mg/dL (0.2-1.0); Globulin 3.1 g/dL (2.3-3.5); Glomerular Filtration Rate 114 ml/min (=/>90); Glucose Level 110 mg/dL (74-106); HDL Cholesterol 44 mg/dL (40-60); Magnesium 1.8 mg/dL (1.6-2.4); Potassium 3.8 mEq/L (3.5-5.1); Sodium Level 139 mEq/L (136-145)
[2024-09-02 06:33] LABS: LDL Cholesterol, Calculated 24 mg/dL (<130); LDL Cholesterol,Calc NonReport 24
[2024-09-02] MEDS: MAGNESIUM SULFATE 1 gm IVPB 1 GM/100 ML BAG IV ONE (09:32)
[2024-09-02] MEDS: POTASSIUM 25 MEQ EFFERV TAB PO ONE (10:20)
[2024-09-02] MEDS: ACETAMINOPHEN 325 MG TABLET PO PRN (10:25)
--- NOTE | 2024-09-02 10:49 | RAD REPORT ---
EXAMINATION: ONE VIEW CHEST XR CLINICAL INDICATION: RO pneumonia TECHNIQUE: Frontal chest projection is submitted. Examination is limited by patient positioning and t echnique. COMPARISON: 05/25/2018 FINDINGS: Mild opacity is seen in the left lung base suspected to represent atelectasis or mild infiltrate. The lungs are otherwise clear. The heart is normal in size. No displaced fractures identified. IMPRESSION: Mild left lower lobe atelectasis versus early infiltrate.
--- NOTE | 2024-09-02 11:06 | RAD REPORT ---
EXAM: Esophagram HISTORY: Dysphagia COMPARISON: None EXPOSURE: 0.53 minutes; FINDINGS: A double contrast barium swallow/esophagram was performed. Esophageal motility is normal. No mucosal lesions are seen in the esophagus. No extrinsic compression on the esophagus is seen. Moderate hiatal hernia. Mild gastroesophageal reflux. IMPRESSION: Moderate hiatal hernia seen with mild gastroesophageal reflux.
--- NOTE | 2024-09-02 11:09 | P.PN ---
Subjective Date of Service: 09/02/24 Chief Complaint: Abdominal pain with leukocytosis Subjective: No new changes (pt had EGD yesterday. continues on PPI BID, carafate. Esophagram today, awaiting results) Review of Systems 10-point ROS is otherwise unremarkable General: Unremarkable Eyes: Unremarkable ENT: Unremarkable Respiratory: Unremarkable Cardiovascular: Unremarkable Gastrointestinal: Vomiting, Abdominal Pain Genitourinary: Unremarkable Musculoskeletal: Unremarkable Integumentary: Unremarkable Neurological: Unremarkable Lymphatics: Unremarkable Physical Examination - Vital Signs Temperature: 97.5 F Blood Pressure: 132/71 Pulse: 84 Respirations: 20 Pulse Ox (%): 94 - Physical Exam General: Alert, In no apparent distress, Oriented x3 HEENT: Atraumatic, Normocephalic Neck: Supple Respiratory: Normal air movement Cardiovascular: Regular rate/rhythm, Normal S1 S2 Capillary refill: <2 Seconds Gastrointestinal: Distended, Tenderness ("sore") Musculoskeletal: No clubbing Integumentary: No rashes Neurological: Normal speech, Normal tone, Normal affect Lymphatics: No axilla or inguinal lymphadenopathy External genitalia: Deferred Rectal: Deferred Assessment And Plan - Plan Abdominal pain with leukocytosis CT abdomen in the ED negative for acute abdomen, small bowel contents suggesting slow transit, no obstruction, questionable gallbladder distention Ultrasound abdomen limited "distended gallbladder with sludge may be from fasting. 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) Pneumonia/pneumonitis (probable aspiration from GERD with sleep apnea - 3mo ago admitted for same s/s) Zosyn 3.375 g IV every 8 hours Pulmonary toilet I-S Brovana every 12 hours Trend white count, follow cultures HOB up 30 degrees Sleep apnea Contributing to pneumonitis from severe reflux CPAP at HS Elevated blood pressure without diagnosis of hypertension Monitor and trend Trend post pain management 09/02/24 EGD yesterday, biopsies but underwhelming Esophagram today, pending NM gastric emptying study WBC dramatically decreased from 23.5 to 13.7 Pt attempted CPap last pm, consecutive time on about 1.5hr per respiratory BP trending great, no severe HTN numbers VTE prophylaxis Teds
[2024-09-02 12:46] LABS: Barbiturates NEGATIVE (NEGATIVE); Benzodiazepines NEGATIVE (NEGATIVE); Cocaine NEGATIVE (NEGATIVE); METHAMPHETAM NEGATIVE (NEGATIVE); Methadone NEGATIVE (NEGATIVE); Opiates NEGATIVE (NEGATIVE); Phencyclidine NEGATIVE (NEGATIVE); THC Cannibis NEGATIVE (NEGATIVE)
[2024-09-02] MEDS: PANTOPRAZOLE 40MG TABLET PO SCH (16:49)
[2024-09-02 21:11] VITALS: O2SAT 98
[2024-09-03 07:39] LABS: Absolute Basophils 0.1 K/uL (0-0.5); Absolute Eosinophils 0.2 K/uL (0-0.5); Absolute Lymphocytes (CBC) 1.5 K/uL (0.7-4.9); Absolute Neutrophil 7.4 K/uL (1.8-8.0); Basophils % 0.7 % (0-1.3); Eosinophils % 1.8 % (0-4.4); Hematocrit 42.9 % (39.6-49.0); Hemoglobin 14.5 g/dL (13.6-17.9); Lymphocytes % 15.1 % (15.3-44.8); MCH 32.6 pg (27.0-35.0); MCHC 33.7 g/dL (32.0-36.0); MCV 96.6 fL (80-100); MPV 8.4 fL (7.6-11.3); Monocytes % 9.7 % (3.3-12.3); Neutrophils % 72.7 % (41.7-73.7); Nucleated Red Blood Cells % 0.1 % (0-0); Platelets 197 thou/uL (152-406); RBC Red Blood Cell Count 4.44 M/uL (4.33-5.43); Red Cell Distribution Width 13.6 % (12.1-15.2)
[2024-09-03 08:00] LABS: Albumin 3.1 g/dL (3.4-5.0); Albumin/Globulin Ratio 0.9 (1.1-1.8); Anion Gap 6.9 mEq/L (5.0-15.0); Bilirubin Total 0.8 mg/dL (0.2-1.0); Globulin 3.6 g/dL (2.3-3.5); Magnesium 2.1 mg/dL (1.6-2.4); Potassium 3.9 mEq/L (3.5-5.1); Protein, Total 6.7 g/dL (6.4-8.2)
--- NOTE | 2024-09-03 08:09 | RAD REPORT ---
EXAMINATION: ONE VIEW CHEST XR CLINICAL INDICATION: RO pneumonia TECHNIQUE: Frontal chest projection is submitted. Examination is limited by patient positioning and t echnique. COMPARISON: 09/02/2024 FINDINGS: Mild bilateral interstitial lung opacities are again seen without significant change since comparison study. Mild linear opacities in the left lung base appear stable and are probably atelectasis. The heart is upper limit of normal in size. IMPRESSION: No significant change is seen in lung aeration since yesterday's examination.
[2024-09-03 09:01] VITALS: BP 117/81; TEMP 98.8
--- NOTE | 2024-09-03 09:06 | P.DS ---
Admission Date: 09/01/24 Discharge Date: 09/03/24 Disposition: ROUTINE DISCHARGE Discharge Condition: GOOD Reason for Admission: Abdominal pain with leukocytosis Consultations: Dr. Paniagua Procedures: EGD, esophagram Brief History of Present Illness: Mr. Velez is a 53-year-old gentleman with a past medical history of severe GERD. He states his only medication is Nexium which she takes daily. He gives a history of persistent shortness of breath with use of albuterol after an infection with COVID. Mr. Velez presented to the emergency department with significant upper abdominal pain with some vomiting. CT evaluation of the abdomen was said to be unremarkable. CT report also shows, "Mild airspace disease in left lower lobe concerning for mild pneumonia or pneumonitis". Gallbladder ultrasound shows "distended gallbladder with sludge may be from fasting. Negative for cholelithiasis or acute cholecystitis." Laboratory evaluation significant for leukocytosis at 23.5 with neutrophils of 83.4%, absolute neutrophils 19.7 and bands of 5. Upon entering Mr. Velez's room for assessment, he was sleeping with the head of the bed up 30 degrees, noted seesaw respirations with obvious periods of sleep apnea. He awakened easily and gives a history of severe GERD. He states 3 months ago he was admitted for a similar episode and at that time also had pneumonia/pneumonitis. We will admit the patient for severe esophagitis/gastritis with probable aspiration of acid compounded by sleep apnea. Hospital Course: Mr. Velez continued to do well over the course of his admission. He underwent an EGD with Dr. Paniagua and had an esophagram. There is some question about slow transit so HIDA scan will be planned outpatient with follow-up with Dr. Paniagua. H. pylori evaluation pending. Mr. Gunderson needs to see Dr. Dorsey for evaluation of sleep apnea. I feel this is a contributing factor to his recurrent lung problems. He will be discharged today with Protonix, Augmentin, Carafate, and follow-up information for both Dr. Paniagua and Dr. Dorsey. Vital Signs/Physical Exam: Temp Pulse Resp BP Pulse Ox 98.8 F 78 20 117/81 92 09/03/24 08:00 09/03/24 08:00 09/03/24 08:00 09/03/24 08:00 09/03/24 08:00 General: Alert, In no apparent distress, Oriented x3 HEENT: Atraumatic, Normocephalic Neck: Supple Respiratory: Clear to auscultation bilaterally, Normal air movement Cardiovascular: Normal pulses, Regular rate/rhythm Capillary refill: <2 Seconds Gastrointestinal: Normal bowel sounds, Soft and benign, Distended Musculoskeletal: No clubbing, No swelling Integumentary: No rashes Neurological: Normal speech, Normal tone, Normal affect Lymphatics: No axilla or inguinal lymphadenopathy External genitalia: Deferred Rectal: Deferred Laboratory Data at Discharge: WBC 10.20 thou/uL (4.3-10.9) 09/03/24 07:13 Hgb 14.5 g/dL (13.6-17.9) 09/03/24 07:13 Hct 42.9 % (39.6-49.0) 09/03/24 07:13 Plt Count 197 thou/uL (152-406) 09/03/24 07:13 Sodium 140 mEq/L (136-145) 09/03/24 07:13 Potassium 3.9 mEq/L (3.5-5.1) 09/03/24 07:13 BUN 7 mg/dL (7-18) 09/03/24 07:13 Creatinine 0.61 mg/dL (0.70-1.30) L 09/03/24 07:13 Glucose 118 mg/dL (74-106) H 09/03/24 07:13 Magnesium 2.1 mg/dL (1.6-2.4) 09/03/24 07:13 Total Bilirubin 0.8 mg/dL (0.2-1.0) 09/03/24 07:13 AST 29 U/L (15-37) 09/03/24 07:13 ALT 68 U/L (16-61) H 09/03/24 07:13 Alkaline Phosphatase 64 U/L (45-117) 09/03/24 07:13 Triglycerides < 30 mg/dL (<150) 09/02/24 05:46 Cholesterol 74 mg/dL (<200) 09/02/24 05:46 HDL Cholesterol 44 mg/dL (40-60) 09/02/24 05:46 Cholesterol/HDL Ratio 1.68 09/02/24 05:46 Lipase 26 U/L (13-75) 09/01/24 06:30 Home Medications: Albuterol Sulfate [Albuterol Sulfate Hfa] 2 puff IH Q4HP PRN 09/01/24 Amoxicillin Trihydrate [Amoxil] 500 mg PO BID #20 cap 09/03/24 Clarithromycin 500 mg PO BID* #20 tab 09/03/24 Pantoprazole [Protonix Tab*] 40 mg PO BIDAC #60 tab 09/03/24 Sucralfate [Carafate*] 1 gm PO ACHS #40 tab 09/03/24 New Medications: Amoxicillin Trihydrate [Amoxil] 500 mg PO BID #20 cap Sucralfate [Carafate*] 1 gm PO ACHS #40 tab Clarithromycin 500 mg PO BID* #20 tab Pantoprazole [Protonix Tab*] 40 mg PO BIDAC #60 tab Physician Discharge Instructions: Mr. Velez continued to do well over the course of his admission. He underwent an EGD with Dr. Paniagua and had an esophagram. There is some question about slow transit so HIDA scan will be planned outpatient with follow-up with Dr. Paniagua. H. pylori evaluation pending. Mr. Gunderson needs to see Dr. Dorsey for evaluation of sleep apnea. I feel this is a contributing factor to his recurrent lung problems. He will be discharged today with Protonix, Augmentin, Carafate, and follow-up information for both Dr. Paniagua and Dr. Dorsey Assessment: Severe GERD, sleep apnea, pneumonia/pneumonitis PMH: GERD New prescriptions: Carafate 1 g before every meal and at bedtime #40 Protonix 40 mg p.o. twice daily #60 Amoxil 500 mg p.o. twice daily #20 Clarithromycin 500 mg p.o. twice daily #20 Continue home medicines as previously prescribed, may also take simethicone GOAL: Clear understanding of disease process Diet: [place], no p.o. 3 hours prior to at bedtime Activity: Ad dayana. INSTRUCTIONS: Physician Discharge Instructions: Okay to DC IV and DC home Follow-up with primary care provider in 1 to 2 weeks Follow-up with Dr. Paniagua (HIDA scan) and Dr. Dorsey (sleep study) in 1 to 2- weeks Please call the inpatient unit for any questions or concerns regarding hospital stay Return to the ER for worsening symptoms Diet: [place] Activity: Ad dayana Followup: [facility] [Primary Care Provider] - Bertin Paniagua MD [ACTIVE - CAN ADMIT] - Jan Dorsey MD [ACTIVE - CAN ADMIT] -
[2024-09-03] MEDS: POTASSIUM CL SA 10 MEQ TAB PO ONE (09:12)
--- NOTE | 2024-09-03 10:54 | CON ---
Date of Consultation: 09/01/2024 Brief History Of Present Illness: The patient is a 53-year-old man who has a past medical history of severe GERD for approximately 7 years, who has used Nexium before in the past, and he currently take s it with some improvement, but has had episodes of nausea, vomiting, right upper quadrant pain, guillermo umbilical pain, which have persisted over the course of many years, but over the last 3 months got si gnificantly worse. He has had coughing, gagging, aspiration episodes. On multiple occasions, he sta lyndsay he will lie down, wake up with an aspiration episode and had no evaluation for this at this point . He was recommended to get an upper endoscopy for his significant GERD, and as such, he had another episode of the nausea, vomiting, and pain and came into the emergency with the above-stated complain ts. Past Medical History: Significant for GERD, multiple episodes of pneumonia, tonsillectomy, kidney fuller rgery. Allergies: HE HAS NO KNOWN ALLERGIES. Medications: He takes ProAir, aspirin, fluticasone, NicoDerm, Protonix, and Ultram. Social History: He lives at home with his family. Quit smoking 3 years ago. 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 Family History: Significant for diabetes in both parents. Smoking, described. Alcohol, denies. Recreational drug use, denies. He does eat spicy foods with r egularity, almost every day. Review of Systems: Ten-point review of systems other than HPI is shortness of breath with exertion, occasional episodes and has brash mouth type acidic contents in his mouth frequently. Physical Examination: General: At the time of my examination, he is awake, alert, and oriented. Psychiatric: Appropriate. Conversive. HEENT: Normocephalic. Sclerae icteric. Mucous membranes are moist. Oropharynx clear. Neck: Supple. No JVD. Chest: Normal expansion and excursion. Cardiovascular: Regular rate and rhythm. Pulmonary: Clear to auscultation bilaterally. Abdomen: Soft, nontender, nondistended. No rebound. No guarding. No focal peritonitis. Extremities: No clubbing, cyanosis, edema. Skin: Warm and dry. Laboratory Data: Revealed a white blood cell count of 23.5, hemoglobin 16.4, hematocrit 48.5, platel et count was 245, neutrophils 83%. His sodium 136, potassium 3.7, chloride 104, carbon dioxide 27, B UN 21, creatinine 0.8, glucose is 145, calcium 9.1, total bilirubin 0.9, AST 33, ALT , rm line phosphatase 84. Troponin was 16.5. ProBNP 163. C-reactive protein 12.9. His lipase is 26. U A was negative. He had imaging performed, which included a CT of the abdomen and pelvis as well as u ltrasound. The ultrasound showed a distended gallbladder with sludge, which may be from fasting. Ne gative for cholelithiasis or cholecystitis. In addition, he had a CT of the abdomen and pelvis offic ially read as no acute or significant abnormalities seen in the abdomen and pelvis. Mild airspace di sease in the left lower lobe concerning for pneumonia or pneumonitis. Distended gallbladder, but no pericholecystic inflammatory change. No radiopaque gallstones. He has evidence of slow transit with small bowel contents in the central abdomen suggesting slow transit. [id number] colonic stool is evident. Assessment And Plan: This is a 53-year-old man who comes in with multiple worsening episodes of ronnie roesophageal reflux disease and nausea, vomiting, which has been persistent. He has had difficulty t aking p.o. prior to this. 1.IV fluid hydration. 2.N.p.o. 3.I have explained risks, benefits, and alternatives of upper endoscopy with biopsy including but no t limited to bleeding, infection, damage to surrounding tissues, intestinal perforation, need for fur ther operative procedures, workup to continue possible and nondiagnostic endoscopy. The patient displayed understanding of above stated plan and agreed to proceed as indicated. SRIDHAR/BRYON Voice ID: [id number] Report ID: [id number]
== END 2024-09-03 11:59 | disposition home or self-care (01) | DRG 391 ==
LOC: ER 06:24 → ERHOLD 09:52 → 2ND 11:11
PROVIDERS: ADMIT Internal Medicine; ATTEND Internal Medicine Sleep Medicine
PROC: 0DB98ZX Excision of Duodenum, Via Natural or Artificial Opening Endoscopic, Diagnostic (ICD-10-PCS; 2024-09-01)
PROC: 0DB68ZX Excision of Stomach, Via Natural or Artificial Opening Endoscopic, Diagnostic (ICD-10-PCS; 2024-09-01)
PROC: 5A09457 Assistance with Respiratory Ventilation, 24-96 Consecutive Hours, Continuous Positive Airway Pressure (ICD-10-PCS; principal; 2024-09-01 15:00)
DX: K21.00 Gastro-esophageal reflux disease with esophagitis, without bleeding (principal); J18.9 Pneumonia, unspecified organism; K29.00 Acute gastritis without bleeding; I10 Essential (primary) hypertension; K22.5 Diverticulum of esophagus, acquired; J98.4 Other disorders of lung; G47.30 Sleep apnea, unspecified; K44.9 Diaphragmatic hernia without obstruction or gangrene; Z79.82 Long term (current) use of aspirin; Z79.899 Other long term (current) drug therapy; Z87.891 Personal history of nicotine dependence
CPT/HCPCS: 36415; 71045; 74177; 74220; 76705; 80053; 80061; 80307; 81003; 83690; 83735; 83880; 84484; 85025; 86140; 87040; 87338; 88305; 88312; 94640; 94660; 96361; 96365; 96367; 96368; 96375; 99285; J0696; J1650; J2001; J2270; J2405; J2470; J2543; J2704; J2765; J3475; J7030; J7605; Q9967

== ENCOUNTER 2025-01-12 10:15 | Day surgery (SDC) | payer OTHER, SELFPAY ==
[2025-01-09 14:47] LABS: Absolute Eosinophils 0.2 K/uL (0-0.5); Absolute Lymphocytes (CBC) 2.5 K/uL (0.7-4.9); Absolute Monocytes 0.7 K/uL (0.1-1.3); Absolute Neutrophil 3.4 K/uL (1.8-8.0); Basophils % 0.5 % (0-1.3); Eosinophils % 2.3 % (0-4.4); Hematocrit 46.6 % (39.6-49.0); Hemoglobin 16.1 g/dL (13.6-17.9); Lymphocytes % 37.1 % (15.3-44.8); MCH 32.5 pg (27.0-35.0); MCHC 34.4 g/dL (32.0-36.0); MCV 94.5 fL (80-100); MPV 8.2 fL (7.6-11.3); Monocytes % 10.5 % (3.3-12.3); Neutrophils % 49.6 % (41.7-73.7); Nucleated Red Blood Cells % 0.1 % (0-0); Platelets 227 thou/uL (152-406); RBC Red Blood Cell Count 4.93 M/uL (4.33-5.43); Red Cell Distribution Width 13.7 % (12.1-15.2)
[2025-01-09 14:58] LABS: Anion Gap 4.9 mEq/L (5.0-15.0); Potassium 3.9 mEq/L (3.5-5.1)
[2025-01-12] MEDS ORDERED: propofoL 200 MG/20 ML VIAL IV ONE (11:05)
[2025-01-12] MEDS ORDERED: LIDOCAINE 1% MPF 5 ML VIAL ONE (11:05)
[2025-01-12] MEDS: Ringers Lactate 1,000 ML IV ONE (11:10)
[2025-01-12 13:02] VITALS: BP 103/84; TEMP 98.3; O2SAT 96
--- NOTE | 2025-01-16 12:32 | EKG ---
Test Date: 2025-01-09 Test Time: 15:23:25 Bingo Usher: FELECIA MEASUREMENT RESULTS: Intervals: Rate: 76 WI: 132 QRSD: 88 QT: 378 QTc: 425 [place]: P: 70 WI: 132 QRS: 63 T: 52 INTERPRETIVE STATEMENTS: Normal sinus rhythm Normal ECG Compared to ECG 05/25/2018 10:01:25 Early repolarization no longer present Electronically Signed On 01-16-25 12:18:21 PERCUSSION INSTRUMENT REPAIRER by Grant Brewer
== END 2025-01-12 12:45 | disposition home or self-care (01) ==
LOC: OR 10:15
PROVIDERS: ATTEND Surgery
PROC: 0DJD8ZZ Inspection of Lower Intestinal Tract, Via Natural or Artificial Opening Endoscopic (ICD-10-PCS; principal; 2025-01-12 12:00)
DX: Z12.11 Encounter for screening for malignant neoplasm of colon (principal); K64.8 Other hemorrhoids
CPT/HCPCS: 93005; 85025; 80048; 36415; 45378; J2704; J2003; J7120

== ENCOUNTER 2025-06-27 08:57 | Emergency (ER) | payer OTHER ==
--- OUTSIDE RECORDS SUMMARY | 2025-06-27 09:08 | XMS REPORT | Continuity of Care Document ---
Author Name Unknown Address [address] [facility] [address] [place] [address] [facility] Address [address] [facility] [address] [place] [address] Care Team Providers Care Measurement Psychologist Name Role Phone PCP, PATIENT DOES NOT HAVE A Primary Care Physic nancy Unavailable Gil Alicia Attending Clinician Unavailable GIL ALICIA Attending Clinician Unavailable Gil Alicia MD Attending Clinician [phone] Judith Michael RN Attending Clinician [phone] Toby Mitchell MD Attending Clinician [phone] Levon Bonilla MD Attending Clinician [phone] Pepe Ventura DO Attending Clinician [phone] Jonathan Benton Attending Clinician [phone] JONATHAN KENNEDY Attending Clinician Unavailable Gil Alicia Admitting Clinician Unavailable Physician, No Primary or Family Admitting Clinic nancy Unavailable GIL ALICIA Admitting Clinician Unavailable eLvon Bonilla MD Admitting Clinician [phone] JONATHAN KENNEDY Admitting Clinician Unavailable Payers Payer Name Policy Type Policy Number Effective Date Expirati on Date Source COMMERCIAL NON-CONTRACT GENERIC [id number] 2021 00:00:00 Problems Condition Name Condition Details Condition Category Status Onset Date Resolution Date Last Treatment Date Treating Clinician Comments Source Bacteremia due to Gram-negat zeke bacteria Bacteremia due to Gram-negat zeke bacteria Disease Active 04-24 00:00: 00 General acute hospital Generalize d abdominal pain Generalize d abdominal pain Disease Active 04-23 00:00: 00 General acute hospital No known active problems No known active problems Disease General acute hospital Allergies, Adverse Reactions, Alerts Allergy Name Allergy Type Status Severity Reaction(s) Onset Date Inactive Date Treating Clinician Comments Source NO KNOWN ALLERGIE S Drug Class Active General acute hospital Social History Social Habit Start Date Stop Date Quantity Comments Source Exposure to SARS-CoV-2 (event) Not sure [facility] Sexual orientation [facility] History of Social function 2024-04-26 00:00:00 2024-04-26 00:00:00 [facility] History of tobacco use 2021-03-22 00:00:00 Cigarette Smoker [facility] Sex assigned at 1970 00:00:00 1970 00:00:00 [facility] Smoking Status Start Date Stop Date Source Unknown if ever smoked [facility] Ex-smoker 2024-04-23 00:00:00 2024-04-23 00:00:00 [facility] Medications Ordered Medication Name Filled Medication Name Start Date Stop Date Current Medication? Ordering Clinician Indication Dosage Frequency Signature (SIG) Comments Components Source famotidine 20 mg tablet 8-04 00:00: 00 Yes 1mg Dante Laguerre albuterol sulfate HFA 90 mcg/actuati on aerosol inhaler 6-13 00:00: 00 Yes 2mcg/ac tuation Dante Laguerre Dulera 100 mcg-5 mcg/actuati on HFA aerosol inhaler 6-03 00:00: 00 Yes 2mcg/ac tuation Dante Laguerre omeprazole 40 mg capsule,del ayed release 6-03 00:00: 00 Yes 1mg Dante Laguerre albuterol sulfate HFA 90 mcg/actuati on aerosol inhaler - 00:00: 00 Yes 2mcg/ac tuation Dante Laguerre prednisone 20 mg tablet - 00:00: 00 Yes 1mg Dante Laguerre benzonatate 200 mg capsule - 00:00: 00 Yes 1mg Dante Laguerre triamcinolo ne acetonide 0.1 % topical cream - 00:00: 00 Yes 1% Dante Laguerre Symbicort 80 mcg-4.5 mcg/actuati on HFA aerosol inhaler - 00:00: 00 Yes 2mcg/ac tuation Dante Laguerre prednisone 20 mg tablet - 00:00: 00 Yes 1mg Dante Laguerre Bromfed DM 2 mg-30 mg-10 mg/5 mL oral syrup - 00:00: 00 Yes 10mg/5 mL Dante Laguerre prednisone 10 mg tablet 2023-11 00:00: 00 Yes 1mg Dante Laguerre ibuprofen 800 mg tablet 2023-11 00:00: 00 Yes 1mg Dante Laguerre amoxicillin 875 mg-potassiu abby clavulanate 125 mg tablet 2023-11 00:00: 00 Yes 1mg Dante Laguerre albuterol sulfate HFA 90 mcg/actuati on aerosol inhaler 2023-11 00:00: 00 Yes mcg/act uation Dante Laguerre barium sulfate (LIQUID E-Z PAQUE) 60 % (w/v) oral suspension 680 g 2023-11 19:00: 00 09-28 18:59 :00 No [id number] 680g 680 g, Oral, ONCE, 1 dose, On Thu09/28/24 at 1300, Routine General acute hospital amoxicillin -clavulanat e 875-125 mg per tablet 04-26 00:00: 00 05-07 04:59 :00 No [id number] 8 1{tbl} Take 1 tablet by mouth in the morning and 1 tablet in the evening. Do all this for 10 days. General acute hospital lactobacill us acidophilus 04-26 00:00: 05-07 04:59 :00 No [id number] 8 .5mg Take 1 tablet by mouth in the morning for 10 days. General acute hospital piperacilli n-tazobacta m (ZOSYN) 3.375 g in NaCl 0.9% (NS) 100 mL MINI-BAG 04-24 22:49: 58 05-01 22:59 :00 No 3.375g 3.375 g, IV Piggyback, Q8H ABX, 21 doses, First dose on 04/24/24 at 1800, Last dose on 05/01/24 at 1000, Administer over 4 Hours, 100 mL, Reason for Anti-Infec tive: Documented Infection, Documented Infection Site: Blood, Duration of Therapy: 7 days General acute hospital ipratropium -albuteroL (DUONEB) 0.5 mg-3 mg(2.5 mg base)/3 mL nebulizer solution 3 mL 04-24 21:15: 00 04-24 20:38 :00 No 3mL 3 mL, Inhalation , ONCE, 1 dose, On 04/24/24 at 1615, Routine General acute hospital furosemide (LASIX) injection 20 mg 04-24 21:15: 00 04-24 20:51 :00 No 20mg 20 mg, IV Push, ONCE, 1 dose, On 04/24/24 at 1615, Routine General acute hospital simethicone (GAS RELIEF (SIMETHICON E)) chewable tablet 80 mg 04-24 20:45: 00 Yes 80mg 80 mg, Oral, PC+HSPRN, Starting on 04/24/24 at 1545, Until Discontinu ed, Routine, Gas General acute hospital lactated ringers IV infusion 1,000 mL 04-24 04:15: 00 04-24 16:14 :00 No 1000mL at 150 mL/hr, 1,000 mL, IV Infusion, CONTINUOUS , Starting on 04/23/24 at 2315, Until 04/24/24 at 1114, Routine General acute hospital metroNIDAZO LE (FLAGYL) tablet 500 mg 04-24 04:00: 00 04-24 04:07 :00 No 500mg 500 mg, Oral, ONCE, 1 dose, On 04/23/24 at 2300, Routine, Reason for Anti-Infec tive: Empiric Therapy for Suspected Infection, Empiric Therapy Site: Abdominal, Duration of therapy: Once (ED) General acute hospital pantoprazol e (PROTONIX) injection 40 mg 04-24 03:15: 00 Yes 40mg 40 mg, Slow IV Push, Q12H, First dose on 04/23/24 at 2215, Until Discontinu ed General acute hospital simethicone (GAS RELIEF (SIMETHICON E)) chewable tablet 80 mg 04-24 03:15: 00 04-24 20:44 :36 No 80mg 80 mg, Oral, PC+HS, First dose on 04/23/24 at 2215, Until Discontinu ed, Routine General acute hospital NaCl 0.9% (NS) IV infusion 1,000 mL 04-24 01:00: 00 04-24 20:23 :08 No 1000mL at 125 mL/hr, IV Infusion, CONTINUOUS , Starting on 04/23/24 at 2000, Until 04/24/24 at 1523, Routine General acute hospital ondansetron (ZOFRAN (PF)) injection 4 mg 04-24 00:52: 34 Yes 4mg General acute hospital acetaminoph en (TYLENOL) tablet 650 mg 04-24 00:52: 14 Yes 650mg General acute hospital piperacilli n-tazobacta m (ZOSYN) 3.375 g in NaCl 0.9% (NS) 100 mL MINI-BAG 04-24 00:15: 00 04-24 01:37 :00 No 3.375g 3.375 g, IV Piggyback, ONCE, 1 dose, On 04/23/24 at 1915, Administer over 30 Minutes, 100 mL, Reason for Anti-Infec tive: Empiric Therapy for Suspected Infection, Empiric Therapy Site: Abdominal, Duration of therapy: Once (ED) [facility] iopamidol (ISOVUE 370-500 mL) injection 85 mL 04-23 22:00: 00 04-23 22:15 :00 No [id number] 85mL 85 mL, Intravenou s, ONCE, 1 dose, On 04/23/24 at 1715, Routine General acute hospital TAKE 2 TABLETS ON DAY 1 THEN TAKE 1 TABLET A DAY FOR 4 DAYS. 2-09 00:00: 00 Yes 250 Dante Laguerre TAKE 10 ML EVERY 6 TO 8 HOURS NEEDED FOR COUGH 2-05 00:00: 00 Yes [id number] Dante Laguerre TAKE 1 TABLET BY MOUTH AT BEDTIME NEEDED PAIN 2022-11 00:00: 00 Yes Dante Laguerre MELOXICAM 15 MG 2022-11 0- 00:00: 00 Yes 15 Dante Laguerre TAKE 1 TABLET BID NEEDED 04-13 00:00: 00 01-01 00:00 :00 No 600 Dante Laguerre PREDNISONE 20 MG 02-22 00:00: 00 Yes 20 Dante Laguerre TAKE 10 ML EVERY 6 TO 8 HOURS NEEDED FOR COUGH - 00:00: 00 01-01 00:00 :00 No [id number] Dante Laguerre TAKE 2 TABLETS ON DAY 1 THEN TAKE 1 TABLET A DAY FOR 4 DAYS. - 00:00: 00 01-01 00:00 :00 No 250 Dante Laguerre INHALE 2 PUFFS EVERY 4-6 HOURS NEEDED. - 00:00: 00 01-01 00:00 :00 No [id number] Dante Laguerre APPLY A SMALL AMOUNT 3 TIMES DAILY DIRECTED. - 00:00: 00 01-01 00:00 :00 No 1 Dante Laguerre TAKE 1 TABLET EVERY 8 HOURS NEEDED. - 00:00: 00 01-01 00:00 :00 No 800 Dante Laguerre BROMPHEN-PS E-DM 2-30-10 MG/5ML 2021-11 2-12 00:00: 00 Yes [id number] Dante Laguerre METHYLPREDN ISOLONE 4 MG DOSEPK 2021-11 2- 00:00: 00 Yes 4 Dante Laguerre TAKE 1 TABLET BY MOUTH [...] 4-6 HOURS NEEDED. 06-06 00:00: 00 No [id number] TAKE 1 TABLET BY MOUTH EVERY DAY 06-06 00:00: 00 Yes Dante Laguerre TAKE 1 TABLET BY MOUTH TWICE A DAY 06-06 00:00: 00 Yes Dante Laguerre TAKE TABLETS BY MOUTH TAKE 2 DAY 1, AND 1 FOR 4 DAYS 06-06 00:00: 00 Yes 20 Dante Laguerre TAKE 1 CAPSULE BY MOUTH THREE TIMES A DAY NEEDED 06-06 00:00: 00 Yes 100 Dante Laguerre INHALE 2 PUFFS EVERY 4-6 HOURS NEEDED. 06-06 00:00: 00 Yes [id number] Dante Laguerre amoxicillin 875 mg-potassiu m clavulanate [...] No Dose Unknown 05-20 00:00: 00 No amoxicillin 875 mg-potassiu m clavulanate 125 mg [...] Unknown 05-20 00:00: 00 Yes Dante Laguerre metformin 500 mg tablet 11-28 00:00: 00 No 1mg Dose Unknown 11-28 00:00: 00 Yes Dante Laguerre valacyclovi r 1 gram tablet 2020-11 00:00: 00 No 1gram gabapentin 100 mg capsule 2020-11 00:00: 00 No 1mg valacyclovi r 1 gram tablet 2020-11 00:00: 00 Yes 1gram Dante Laguerre gabapentin 100 mg capsule 2020-11 00:00: 00 Yes 1mg Dante Laguerre Bromfed DM 2 mg-30 mg-10 mg/5 mL oral syrup 2020-11 00:00: 00 No 10mg/5 mL Bromfed DM 2 mg-30 mg-10 mg/5 mL oral syrup 2020-11 00:00: 00 Yes 10mg/5 mL Dante Laguerre cephALEXin (KEFLEX) capsule 500 mg 2020-11 19:15: 00 09-12 18:27 :00 No 500mg 500 mg, Oral, ONCE, 1 dose, On Danielle 09/12/21 at 1415, JENNIFER
Re ason for Anti-Infec tive: Empiric Non-Surgic al Prophylaxi s
Durat ion of therapy: 7 days General acute hospital cephALEXin (KEFLEX) 500 mg capsule 2020-11 00:00: 00 09-23 04:59 :00 No [id number] 500mg Take 1 capsule by mouth 3 (three) times daily for 10 days. General acute hospital ProAir HFA 90 mcg/actuati on aerosol inhaler 12-31 00:00: 00 No 2mcg/ac tuation ProAir HFA 90 mcg/actuati on aerosol inhaler 12-31 00:00: 00 Yes 2mcg/ac tuation Dante Laguerre Mucinex 600 mg tablet, extended [...] syrup 12-23 00:00: 00 No 5mg/5 mL Mucinex 600 mg tablet, extended release 12-23 [...] 00:00: 00 Yes 5mg/5 mL Dante Laguerre Bactrim DS 800 mg-160 mg tablet 02-13 00:00: 00 No 1mg Bactrim DS 800 mg-160 mg tablet 02-13 00:00: 00 Yes 1mg Dante Laguerre Vital Signs Vital Name Observation Time Observation Value Comments Hans soto Systolic blood pressure 2024-04-26 16:17:00 128 mm[Hg] [facility] Diastolic blood pressure 2024-04-26 16:17:00 72 mm[Hg] [facility] Heart rate 2024-04-26 16:17:00 74 /min [facility] 2024-04-26 16:17:00 36.5 Dinah [facility] Respiratory rate 2024-04-26 16:17:00 18 /min [facility] Oxygen saturation in Arterial blood by Pulse oximetry 2024-04-26 16:17:00 93 /min [facility] Body weight 2024-04-26 08:12:00 81.965 kg [facility] BMI 2024-04-26 08:12:00 26.67 kg/m2 [facility] Body height 2024-04-24 02:29:00 175.3 cm [facility] Systolic blood pressure 2021-09-12 16:27:10 124 mm[Hg] [facility] Diastolic blood pressure 2021-09-12 16:27:10 82 mm[Hg] [facility] Heart rate 2021-09-12 16:27:10 92 /min [facility] Body temperature 2021-09-12 16:27:10 36.61 Dinah [facility] Respiratory rate 2021-09-12 16:27:10 18 /min [facility] Body height 2021-09-12 15:33:00 175 cm [facility] Body weight 2021-09-12 15:33:00 70.308 kg [facility] BMI 2021-09-12 15:33:00 22.96 kg/m2 [facility] Oxygen saturation in Arterial blood by Pulse oximetry 2021-09-12 15:33:00 97 /min [facility] BP Systolic 2025-06-26 09:54:00 131 mm[Hg] Michael Laguerre BP Diastolic 2025-06-26 09:54:00 85 mm[Hg] Pon[place] Laguerre Weight Measured 2025-06-26 09:54:00 184.80 pounds Dante Laguerre Height Measured 2025-06-26 09:54:00 68.00 inches Dante Laguerre Body Temperature 2025-06-26 09:54:00 97.60 degrees Dante Laguerre Heart Rate 2025-06-26 09:54:00 87.00 /min Joann en F [facility]ade Respiratory Rate 2025-06-26 09:54:00 18.00 /min Dante F Shade BP Systolic 2025-06-13 14:22:00 124 mm[Hg] Step hen F [facility]ade BP Diastolic 2025-06-13 14:22:00 80 mm[Hg] Pon[place] phen F Shade Weight Measured 2025-06-13 14:22:00 184.00 pounds Dante F Shade Height Measured 2025-06-13 14:22:00 68.00 inches Dante F Shade Body Temperature 2025-06-13 14:22:00 97.90 degrees Dante F Shade Heart Rate 2025-06-13 14:22:00 89.00 /min Joann en F [facility] Respiratory Rate 2025-06-13 14:22:00 17.00 /min Dante F Shade BP Systolic 2025-05-11 13:04:00 137 mm[Hg] Step hen F Shade BP Diastolic 2025-05-11 13:04:00 81 mm[Hg] Pon[place] phen F Shade Weight Measured 2025-05-11 13:04:00 184.00 pounds Dante F Shade Height Measured 2025-05-11 13:04:00 68.00 inches Dante F Shade Body Temperature 2025-05-11 13:04:00 98.60 degrees Dante F Shade Heart Rate 2025-05-11 13:04:00 81.00 /min Joann en F [facility] Respiratory Rate 2025-05-11 13:04:00 17.00 /min Dante F Shade BP Systolic 2025-04-25 15:34:00 118 mm[Hg] Step hen F Shade BP Diastolic 2025-04-25 15:34:00 81 mm[Hg] [place] phen F Shade Weight Measured 2025-04-25 15:34:00 185.80 pounds Dante F Shade Height Measured 2025-04-25 15:34:00 68.00 inches Dante F Shade Body Temperature 2025-04-25 15:34:00 98.60 degrees Dante F Shade Heart Rate 2025-04-25 15:34:00 92.00 /min Joann en F [facility] Respiratory Rate 2025-04-25 15:34:00 Dante F Shade BP Systolic 2025-02-06 10:24:00 Step hen F Shade BP Diastolic 2025-02-06 10:24:00 [place] phen F Shade Weight Measured 2025-02-06 10:24:00 Dante F Shade Height Measured 2025-02-06 10:24:00 Dante F Shade Body Temperature 2025-02-06 10:24:00 Dante F Shade Heart Rate 2025-02-06 10:24:00 Joann en F Shade Respiratory Rate 2025-02-06 10:24:00 Dante F Shade BP Systolic 2025-01-20 08:28:00 137 mm[Hg] Step hen F Shade BP Diastolic 2025-01-20 08:28:00 82 mm[Hg] Pon[place] phen F Shade Weight Measured 2025-01-20 08:28:00 189.40 pounds Dante F Shade Height Measured 2025-01-20 08:28:00 68.00 inches Dante F Shade Body Temperature 2025-01-20 08:28:00 97.40 degrees Dante F Shade Heart Rate 2025-01-20 08:28:00 93.00 /min Joann en F [facility]ade Respiratory Rate 2025-01-20 08:28:00 18.00 /min Dante F Shade BP Systolic 2024-12-08 16:26:00 127 mm[Hg] Step hen F Shade BP Diastolic 2024-12-08 16:26:00 84 mm[Hg] Pon[place] phen F Shade Weight Measured 2024-12-08 16:26:00 187.80 pounds Dante F Shade Height Measured 2024-12-08 16:26:00 68.00 inches Dante F Shade Body Temperature 2024-12-08 16:26:00 98.80 degrees Dante F Shade Heart Rate 2024-12-08 16:26:00 85.00 /min Joann en F [facility] Respiratory Rate 2024-12-08 16:26:00 18.00 /min Dante F Shaed BP Systolic 2024-11-08 09:01:00 125 mm[Hg] Step hen F Shade BP Diastolic 2024-11-08 09:01:00 83 mm[Hg] [place] phen F Shade Weight Measured 2024-11-08 09:01:00 183.00 pounds Dante F Shade Height Measured 2024-11-08 09:01:00 68.00 inches Dante F Shade Body Temperature 2024-11-08 09:01:00 98.00 degrees Dante F Shade Heart Rate 2024-11-08 09:01:00 78.00 /min Joann en F [facility] Respiratory Rate 2024-11-08 09:01:00 18.00 /min Dante F Shade BP Systolic 2024-10-21 15:40:00 141 mm[Hg] Step hen F Shade BP Diastolic 2024-10-21 15:40:00 84 mm[Hg] [place] phen F Shade Weight Measured 2024-10-21 15:40:00 187.40 pounds Dnate F Shade Height Measured 2024-10-21 15:40:00 68.00 inches Dante F Shade Body Temperature 2024-10-21 15:40:00 98.00 degrees Dante F Shade Heart Rate 2024-10-21 15:40:00 80.00 /min Joann en F [facility] Respiratory Rate 2024-10-21 15:40:00 18.00 /min Dante F Shade BP Systolic 2024-06-07 15:45:00 128 mm[Hg] Step [...] Measured 2024-05-05 15:34:00 68.00 inches Dante F Shaed Body Temperature 2024-05-05 15:34:00 98.20 degrees Dante [...] 2023-02-25 09:11:00 102.00 /min Step hen F [facility]ade Respiratory Rate 2023-02-25 09:11:00 20.00 /min Dante [...] Height Measured 2021-11-26 15:40:00 68.00 inches Dante F Shade Body Temperature 2021-11-26 15:40:00 98.40 degrees Dante [...] Date / Time Performed Performing Clinician Source [place] SMALL BOWEL SERIES 2024-09-28 18:57:21 Gil Alicia [facility] HEPATIC FUNCTION PANEL ([id number]) (ALB,T.PRO,BILI T,BU/BC,ALT,AST,ALK PHOS) 2024-04-26 09:00:00 Mustapha Jonathan [facility] BASIC METABOLIC PANEL (NA, K, CL, CO2, GLUCOSE, BUN, CREATININE, CA) 2024-04-26 09:00:00 Mustapha [facility] CBC WITH DIFF 2024-04-26 09:00:00 Mustapha [facility] BASIC METABOLIC PANEL (NA, K, CL, CO2, GLUCOSE, BUN, CREATININE, CA) 2024-04-25 09:34:00 Mustapha [facility] CBC WITH DIFF 2024-04-25 09:34:00 Mustapha [facility] BLOOD CULTURE SCREEN 2024-04-24 23:45:00 Kassandra Bonilla i [facility] PROCALCITONIN 2024-04-24 20:58:00 Mustapha [facility] POCT GLUCOSE (AUTOMATED) 2024-04-24 16:30:00 Desi Bonilla [facility] OCCULT (GUAIAC) BLOOD 2024-04-24 14:44:00 Rene Hamilton [facility] HEPATIC FUNCTION PANEL ([id number]) (ALB,T.PRO,BILI T,BU/BC,ALT,AST,ALK PHOS) 2024-04-24 09:54:00 Levon Bonilla [facility] BASIC METABOLIC PANEL (NA, K, CL, CO2, GLUCOSE, BUN, CREATININE, CA) 2024-04-24 09:54[facility] 2024-04-24 09:54:00 Levon Bonilla [facility] URINALYSIS MICROSCOPIC 2024-04-24 04:03:00 Mary Hamilton [facility] SALICYLATE 2024-04-24 03:07:00 Rene Hamilton [facility] PROTHROMBIN TIME / INR 2024-04-24 03:07:00 Mary Hamilton [facility] BLOOD CULTURE SCREEN 2024-04-24 00:43:[address] [facility] BLOOD CULTURE WORKUP 2024-04-24 00:43:00 Des Mitchell [facility] BLOOD CULTURE SCREEN 2024-04-24 00:38:[address] [facility] BLOOD CULTURE WORKUP 2024-04-24 00:38:00 Des Mitchell [facility] GRAM NEGATIVE BLOOD PATHOGENS DNA PROBE-AEROBIC 2024-04-24 00:38:00 Toby Mitchell [facility] XR CHEST 1 VW 2024-04-24 00:06:43 Toby Mitchell [facility] CT ABDOMEN PELVIS W CONTRAST 2024-04-23 22:09:00 Toby Mitchell [facility] LIPASE 2024-04-23 21:29:00 Toby Mitchell [facility] TROPONIN I 2024-04-23 21:29:00 Toby Mitchell [facility] COMP. METABOLIC PANEL ([id number]) 2024-04-23 21:29:00 Toby Mitchell [facility] ETHANOL 2024-04-23 21:29:00 Rene Hamilton [facility] CBC WITH DIFF 2024-04-23 21:29:00 Toby Mitchell [facility] URINALYSIS 2024-04-23 21:29:00 Toby Mitchell [facility] N-TERMINAL PRO-BNP 2024-04-23 21:29:00 Toby Mitchell [facility] LACTIC ACID WHOLE BLOOD 2024-04-23 21:27:00 Do augusto Mitchell [facility] HB ECG ROUTINE & RHYTHM STRIP 2024-04-23 21:24:06 Toby Mitchell [facility] ED LACERATION REPAIR 2021-09-12 18:05:33 Jonathan Kennedy [facility] XR FINGERS 2 VW LEFT 2021-09-12 17:16:00 Jonathan Kennedy [facility] Plan of Care Planned Activity Planned Date Details Comments Source Goal Plan of Care Note [code = 83185-9] Goal Plan of Care Note [code = 91961-9] Goal Plan of Care Note [code = 94648-8] Goal Plan of Care Note [code = 63241-2] Goal Plan of Care Note [code = 56992-2] Goal Plan of Care Note [code = 05367-1] Goal Plan of Care Note [code = 19070-2] Goal Plan of Care Note [code = 89062-0] Goal Plan of Care Note [code = 39920-8] Goal Plan of Care Note [code = 81762-1] Goal Plan of Care Note [code = 14999-9] Goal Plan of Care Note [code = 69933-0] Goal Plan of Care Note [code = 54193-2] Goal Plan of Care Note [code = 21331-9] Goal Plan of Care Note [code = 70437-1] Goal Plan of Care Note [code = 21127-3] Goal Plan of Care Note [code = 62748-6] Goal Plan of Care Note [code = 73167-8] Goal Plan of Care Note [code = 72777-0] Goal Plan of Care Note [code = 50136-1] Goal Plan of Care Note [code = 43429-7] Goal Plan of Care Note [code = 74435-4] Goal Plan of Care Note [code = 96091-6] Goal Plan of Care Note [code = 76241-1] Goal Plan of Care Note [code = 23375-5] Goal Plan of Care Note [code = 46364-8] Goal Plan of Care Note [code = 42839-8] Encounters Start Date/Time End Date/Time Encounter Type Admission Type Attending [facility] Facility Care Department Encounter ID Source 2024-10-19 13:00:00 Inpatient Gil TapiaPM ENDO [id number] 89 [facility] 2024-10-19 13:00:00 Inpatient Gil TapiaPM ENDO [id number] 89 [facility] 2024-09-19 08:30:00 Inpatient Gil TapiaPM RADI [id number] [facility] 2025-06-26 09:50:57 2025-06-26 09:50:57 Outpatient SFA [facility] [id number] Dante Laguerre 2025-06-26 00:00:00 2025-06-26 00:00:00 Outpatient Visit SFA [id number] Dante Laguerre 2025-06-13 14:16:28 2025-06-13 14:16:28 Outpatient SFA [facility] [id number] Dante Laguerre 2025-06-13 00:00:00 2025-06-13 00:00:00 Outpatient Visit SFA [id number] Dante Laguerre 2025-05-11 13:00:15 2025-05-11 13:00:15 Outpatient SFA SFA [id number] Dante Laguerre 2025-05-11 00:00:00 2025-05-11 00:00:00 Outpatient Visit SFA [id number] Dante Laguerre 2025-04-25 15:30:20 2025-04-25 15:30:20 Outpatient SFA SFA [id number] Dante Laguerre 2025-04-25 00:00:00 2025-04-25 00:00:00 Outpatient Visit SFA [id number] Dante Laguerre 2025-02-06 00:00:00 2025-02-06 00:00:00 Outpatient Visit SFA [id number] Dante Laguerre 2025-01-20 08:17:44 2025-01-20 08:17:44 Outpatient SFA SFA [id number] Dante Laguerre 2025-01-20 00:00:00 2025-01-20 00:00:00 Outpatient Visit SFA [id number] Dante Laguerre 2024-12-08 16:17:51 2024-12-08 16:17:51 Outpatient SFA [facility] [id number] Dante Laguerre 2024-12-08 00:00:00 2024-12-08 00:00:00 Outpatient Visit SFA [id number] Dante Laguerre 2024-11-08 08:56:11 2024-11-08 08:56:11 Outpatient SFA SFA [id number] Dante Laguerre 2024-11-08 00:00:00 2024-11-08 00:00:00 Outpatient Visit SFA [id number] Dante Laguerre 2024-10-21 15:19:51 2024-10-21 15:19:51 Outpatient SFA SFA [id number] Dante Laguerre 2024-10-21 00:00:00 2024-10-21 00:00:00 Outpatient Visit SFA [id number] Dante Laguerre 2024-09-28 07:53:59 2024-09-28 23:59:00 Outpatient R GIL ALICAI [facility] [id number] General acute hospital 2024-09-28 07:53:59 2024-09-28 23:59:00 Hospital Encounter Gil Alicia [facility] [id number] General acute hospital 2024-06-08 13:05:29 2024-06-08 13:05:29 Outpatient [facility] 17 Dante Laguerre 2024-06-07 15:37:20 2024-06-07 15:37:20 Outpatient [facility] 16 Dante Laguerre 2024-06-07 00:00:00 2024-06-07 00:00:00 Outpatient Visit [facility] [id number] Dante Laguerre 2024-05-05 15:42:10 2024-05-05 15:42:10 Outpatient SFA SFA 0613 Dante Laguerre 2024-05-05 00:00:00 2024-05-05 00:00:00 Outpatient Visit SFA [id number] Dante Laguerre 2024-04-27 00:00:00 2024-04-27 11:52:17 Transition of Care Judith Michael MELISSA WHITE [id number] [id number] General acute hospital 2024-04-23 16:18:00 2024-04-26 15:21:00 Hospital Encounter Toby Mitchell, Pepe Bautista [facility] [id number] General acute hospital 2023-12-28 13:29:31 2023-12-28 13:29:31 Outpatient SFA SFA 0205 Dante Laguerre 2023-04-13 15:31:34 2023-04-13 15:31:34 Outpatient SFA SFA 0522 Dante Laguerre 2023-03-10 08:08:32 2023-03-10 08:08:32 Outpatient SFA SFA 0418 Dante Laguerre 2023-03-09 16:13:40 2023-03-09 16:13:40 Outpatient SFA SFA 0417 Dante Laguerre 2023-02-25 08:56:48 2023-02-25 08:56:48 Outpatient SFA SFA 0405 Dante Laguerre 2023-02-10 14:53:26 2023-02-10 14:53:26 Outpatient SFA SFA 0321 Dante Laguerre 2023-01-29 14:35:35 2023-01-29 14:35:35 Outpatient SFA SFA 0309 Dante Laguerre 2022-10-24 10:26:01 2022-10-24 10:26:01 Outpatient SFA SFA [id number] Dante Laguerre 2022-06-06 00:00:00 2022-06-06 00:00:00 Outpatient Visit [id number] 2022-05-20 00:00:00 2022-05-20 00:00:00 Outpatient Visit [id number] 2021-09-12 10:38:00 2021-09-12 13:37:00 Emergency Jonathan Kennedy S [facility] [id number] [id number] [id number] General acute hospital 2021-09-12 10:38:00 2021-09-12 13:37:00 Emergency X [facility] ERT [id number] General acute hospital Results Test Description Test Time Test Comments Results Resul t Comments Source FL SMALL BOWEL SERIES 6 19:03:09 HISTORY: Epigastric pain. TECHNIQUE: Abdominal radiograph was obtained which was reviewed by me.Subsequently barium is administered orally and serial films of theabdominal and pelvis are obtained. Digital spot images of small bowel loopsincluding terminal ileum were obtained by me. FINDINGS: KUB radiograph showed retained fecal material only in large bowelup to proximal descending colon. No aggressive bone lesions. No calcifiedkidney stones visualized. Barium flow through the small bowel appears unobstructed with the rightside of the colon visualized approximately after 3 hours and 15 minutes.Entire small bowel including spot films of the terminal ileum show normalmucosal pattern, caliber as well as distribution of small bowel loops inthe abdominal and pelvis. CONCLUSIONS: Normal small bowel series. [facility] Dante LaguerreHEMOGLOBIN [id number] 00:00:00* Test Item Value Reference Range Interpretation Comme nts HEMOGLOBIN A1c (test code = 58613) 6.1 % Dante LaguerreCBC W/AUTO [id number] 00:00:00* Test Item Value Reference Range Interpretation Comme nts WBC (test code = 1001) 9.3 K/UL RBC (test code = 1002) 5.11 M/UL HEMOGLOBIN (test code = 1003) 16.6 G/DL HEMATOCRIT (test code = 1004) 51.2 % MCV (test code = 1005) 100.2 fL MCH (test code = 1006) 32.5 PG MCHC (test code = 1007) 32.4 G/DL RDW (test code = 1038) 12.6 % NEUTROPHILS (test code = 1008) 64.2 % LYMPHOCYTES (test code = 1010) 25.2 % MONOCYTES (test code = 1011) 9.0 % EOSINOPHILS (test code = 1012) 1.0 % BASOPHILS (test code = 1013) 0.5 % IMMATURE GRANULOCYTES (test code = 1036) 0.1 % NUCLEATED RBCS (test code = 1065) 0.0 /100WBC'S PLATELET COUNT (test code = 1015) 230 K/UL ABSOLUTE NEUTROPHILS (test c ode = 1066) 6.00 K/UL ABSOLUTE LYMPHOCYTES (test c ode = 1067) 2.35 K/UL ABSOLUTE MONOCYTES (test cod e = 1068) 0.84 K/UL ABSOLUTE EOSINOPHILS (test c ode = 1040) 0.09 K/UL ABSOLUTE BASOPHILS (test cod e = 1069) 0.05 K/UL ABS IMMATURE GRANULOCYTES (t est code = 1020) 0.01 K/UL ABS NUCLEATED RBCS (test cod e = 91508) 0.00 K/UL Dante LaguerreCOMPREHENSIVE METABOLIC [id number] 00:00:00* Test Item Value Reference Range Interpretation Comme nts GLUCOSE (test code = 2217) 98 MG/DL BUN (test code = 2208) 18 MG/DL CREATININE (test code = 2214) 0.91 MG/DL eGFR (2020 CKD-EPI) (test code = 45721) 100 ML/MIN/1.73 CALC BUN/CREAT (test code = 2235) 20 RATIO SODIUM (test code = 2231) 141 MEQ/L POTASSIUM (test code = 2228) 4.1 MEQ/L CHLORIDE (test code = 2215) 100 MEQ/L CARBON DIOXIDE (test code = 2206) 22 MEQ/L CALCIUM (test code = 2209) 10.0 MG/DL PROTEIN, TOTAL (test code = 2229) 7.8 G/DL ALBUMIN (test code = 2201) 4.8 G/DL CALC GLOBULIN (test code = 2240) 3.0 G/DL CALC A/G RATIO (test code = 2234) 1.6 RATIO BILIRUBIN, TOTAL (test code = 2207) 0.5 MG/DL ALKALINE PHOSPHATASE (test code = 2204) 85 U/L AST (test code = 2218) 64 U/L ALT (test code = 2219) 97 U/L Dante LaguerreHEPATITIS PROFILE (A,B,C)2024-06-09 00:00:00* Test Item Value Reference Range Interpretation Comme nts HEPATITIS A TOTAL AB (test c ode = 2725) NON-REACTIVE HEPATITIS B SURF AG (test co de = 2739) NON-REACTIVE HEP B CORE TOTAL AB (test co de = 2729) NON-REACTIVE HEPATITIS B SURFACE AB (test code = 2737) NON-REACTIVE HEPATITIS C ANTIBODY (test c ode = 2375) REACTIVE INTERPRETATION HEPATITIS A: (test code = 2552) (NOTE) INTERPRETATION HEPATITIS B: (test code = 01946) (NOTE) INTERPRETATION HEPATITIS C: (test code = 77808) (NOTE) Dante Crawford AustinHIV 1/2 4TH GEN, RFLX [id number] 00:00:00* Test Item Value Reference Range Interpretation Comme nts HIV 1/2 4TH GEN, RFLX CONF ( test code = 3514) NON-REACTIVE Dante LaguerreLIPID [id number] 00:00:00* Test Item Value Reference Range Interpretation Comme nts CHOLESTEROL (test code = 2210) 120 MG/DL TRIGLYCERIDES (test code = 2232) 46 MG/DL HDL CHOLESTEROL (test code = 2220) 51 MG/DL CALC LDL CHOL (test code = 2237) 56 MG/DL RISK RATIO LDL/HDL (test cod e = 2238) 1.10 RATIO Dante LaguerreHEMOGLOBIN [id number] 00:00:00* Test Item Value Reference Range Interpretation Comme nts HEMOGLOBIN A1c (test code = 21967) 6.1 % Dante LaguerreCBC W/AUTO [id number] 00:00:00* Test Item Value Reference Range Interpretation Comme nts WBC (test code = 1001) 9.3 K/UL RBC (test code = 1002) 5.11 M/UL HEMOGLOBIN (test code = 1003) 16.6 G/DL HEMATOCRIT (test code = 1004) 51.2 % MCV (test code = 1005) 100.2 fL MCH (test code = 1006) 32.5 PG MCHC (test code = 1007) 32.4 G/DL RDW (test code = 1038) 12.6 % NEUTROPHILS (test code = 1008) 64.2 % LYMPHOCYTES (test code = 1010) 25.2 % MONOCYTES (test code = 1011) 9.0 % EOSINOPHILS (test code = 1012) 1.0 % BASOPHILS (test code = 1013) 0.5 % IMMATURE GRANULOCYTES (test code = 1036) 0.1 % NUCLEATED RBCS (test code = 1065) 0.0 /100WBC'S PLATELET COUNT (test code = 1015) 230 K/UL ABSOLUTE NEUTROPHILS (test c ode = 1066) 6.00 K/UL ABSOLUTE LYMPHOCYTES (test c ode = 1067) 2.35 K/UL ABSOLUTE MONOCYTES (test cod e = 1068) 0.84 K/UL ABSOLUTE EOSINOPHILS (test c ode = 1040) 0.09 K/UL ABSOLUTE BASOPHILS (test cod e = 1069) 0.05 K/UL ABS IMMATURE GRANULOCYTES (t est code = 1020) 0.01 K/UL ABS NUCLEATED RBCS (test cod e = 77708) 0.00 K/UL Dante LaguerreCOMPREHENSIVE METABOLIC [id number] 00:00:00* Test Item Value Reference Range Interpretation Comme nts GLUCOSE (test code = 2217) 98 MG/DL BUN (test code = 2208) 18 MG/DL CREATININE (test code = 2214) 0.91 MG/DL eGFR (2020 CKD-EPI) (test code = 80011) 100 ML/MIN/1.73 CALC BUN/CREAT (test code = 2235) 20 RATIO SODIUM (test code = 2231) 141 MEQ/L POTASSIUM (test code = 2228) 4.1 MEQ/L CHLORIDE (test code = 2215) 100 MEQ/L CARBON DIOXIDE (test code = 2206) 22 MEQ/L CALCIUM (test code = 2209) 10.0 MG/DL PROTEIN, TOTAL (test code = 2229) 7.8 G/DL ALBUMIN (test code = 2201) 4.8 G/DL CALC GLOBULIN (test code = 2240) 3.0 G/DL CALC A/G RATIO (test code = 2234) 1.6 RATIO BILIRUBIN, TOTAL (test code = 2207) 0.5 MG/DL ALKALINE PHOSPHATASE (test code = 2204) 85 U/L AST (test code = 2218) 64 U/L ALT (test code = 2219) 97 U/L Dante LaguerreHEPATITIS PROFILE (A,B,C)2024-06-09 00:00:00* Test Item Value Reference Range Interpretation Comme nts HEPATITIS A TOTAL AB (test c ode = 2725) NON-REACTIVE HEPATITIS B SURF AG (test co de = 2739) NON-REACTIVE HEP B CORE TOTAL AB (test co de = 2729) NON-REACTIVE HEPATITIS B SURFACE AB (test code = 2737) NON-REACTIVE HEPATITIS C ANTIBODY (test c ode = 4679) REACTIVE INTERPRETATION HEPATITIS A: (test code = 2552) (NOTE) INTERPRETATION HEPATITIS B: (test code = 16184) (NOTE) INTERPRETATION HEPATITIS C: (test code = 79797) (NOTE) Dante LaguerreHIV 1/2 4TH GEN, RFLX [id number] 00:00:00* Test Item Value Reference Range Interpretation Comme nts HIV 1/2 4TH GEN, RFLX CONF ( test code = 3514) NON-REACTIVE Dante LaguerreLIPID [id number] 00:00:00* Test Item Value Reference Range Interpretation Comme nts CHOLESTEROL (test code = 2210) 120 MG/DL TRIGLYCERIDES (test code = 2232) 46 MG/DL HDL CHOLESTEROL (test code = 2220) 51 MG/DL CALC LDL CHOL (test code = 2237) 56 MG/DL RISK RATIO LDL/HDL (test cod e = 2238) 1.10 RATIO Dante LaguerreHEMOGLOBIN [id number] 00:00:00* Test Item Value Reference Range Interpretation Comme nts HEMOGLOBIN A1c (test code = 95521) 6.1 % Dante LaguerreCBC W/AUTO [id number] 00:00:00* Test Item Value Reference Range Interpretation Comme nts WBC (test code = 1001) 9.3 K/UL RBC (test code = 1002) 5.11 M/UL HEMOGLOBIN (test code = 1003) 16.6 G/DL HEMATOCRIT (test code = 1004) 51.2 % MCV (test code = 1005) 100.2 fL MCH (test code = 1006) 32.5 PG MCHC (test code = 1007) 32.4 G/DL RDW (test code = 1038) 12.6 % NEUTROPHILS (test code = 1008) 64.2 % LYMPHOCYTES (test code = 1010) 25.2 % MONOCYTES (test code = 1011) 9.0 % EOSINOPHILS (test code = 1012) 1.0 % BASOPHILS (test code = 1013) 0.5 % IMMATURE GRANULOCYTES (test code = 1036) 0.1 % NUCLEATED RBCS (test code = 1065) 0.0 /100WBC'S PLATELET COUNT (test code = 1015) 230 K/UL ABSOLUTE NEUTROPHILS (test c ode = 1066) 6.00 K/UL ABSOLUTE LYMPHOCYTES (test c ode = 1067) 2.35 K/UL ABSOLUTE MONOCYTES (test cod e = 1068) 0.84 K/UL ABSOLUTE EOSINOPHILS (test c ode = 1040) 0.09 K/UL ABSOLUTE BASOPHILS (test cod e = 1069) 0.05 K/UL ABS IMMATURE GRANULOCYTES (t est code = 1020) 0.01 K/UL ABS NUCLEATED RBCS (test cod e = 38875) 0.00 K/UL Dante LaguerreCOMPREHENSIVE METABOLIC [id number] 00:00:00* Test Item Value Reference Range Interpretation Comme nts GLUCOSE (test code = 2217) 98 MG/DL BUN (test code = 2208) 18 MG/DL CREATININE (test code = 2214) 0.91 MG/DL eGFR (2020 CKD-EPI) (test code = 49469) 100 ML/MIN/1.73 CALC BUN/CREAT (test code = 2235) 20 RATIO SODIUM (test code = 2231) 141 MEQ/L POTASSIUM (test code = 2228) 4.1 MEQ/L CHLORIDE (test code = 2215) 100 MEQ/L CARBON DIOXIDE (test code = 2206) 22 MEQ/L CALCIUM (test code = 2209) 10.0 MG/DL PROTEIN, TOTAL (test code = 2229) 7.8 G/DL ALBUMIN (test code = 2201) 4.8 G/DL CALC GLOBULIN (test code = 2240) 3.0 G/DL CALC A/G RATIO (test code = 2234) 1.6 RATIO BILIRUBIN, TOTAL (test code = 2207) 0.5 MG/DL ALKALINE PHOSPHATASE (test code = 2204) 85 U/L AST (test code = 2218) 64 U/L ALT (test code = 2219) 97 U/L Dante LaguerreHEPATITIS PROFILE (A,B,C)2024-06-09 00:00:00* Test Item Value Reference Range Interpretation Comme nts HEPATITIS A TOTAL AB (test c ode = 2725) NON-REACTIVE HEPATITIS B SURF AG (test co de = 2739) NON-REACTIVE HEP B CORE TOTAL AB (test co de = 2729) NON-REACTIVE HEPATITIS B SURFACE AB (test code = 2737) NON-REACTIVE HEPATITIS C ANTIBODY (test c ode = 4675) REACTIVE INTERPRETATION HEPATITIS A: (test code = 2552) (NOTE) INTERPRETATION HEPATITIS B: (test code = 37983) (NOTE) INTERPRETATION HEPATITIS C: (test code = 87484) (NOTE) Dante LaguerreHIV 1/2 4TH GEN, RFLX [id number] 00:00:00* Test Item Value Reference Range Interpretation Comme nts HIV 1/2 4TH GEN, RFLX CONF ( test code = 3514) NON-REACTIVE Dante LaguerreLIPID [id number] 00:00:00* Test Item Value Reference Range Interpretation Comme nts CHOLESTEROL (test code = 2210) 120 MG/DL TRIGLYCERIDES (test code = 2232) 46 MG/DL HDL CHOLESTEROL (test code = 2220) 51 MG/DL CALC LDL CHOL (test code = 2237) 56 MG/DL RISK RATIO LDL/HDL (test cod e = 2238) 1.10 RATIO Dante LaguerreHEMOGLOBIN [id number] 00:00:00* Test Item Value Reference Range Interpretation Comme nts HEMOGLOBIN A1c (test code = 31539) 6.1 % Dante LaguerreCBC W/AUTO [id number] 00:00:00* Test Item Value Reference Range Interpretation Comme nts WBC (test code = 1001) 9.3 K/UL RBC (test code = 1002) 5.11 M/UL HEMOGLOBIN (test code = 1003) 16.6 G/DL HEMATOCRIT (test code = 1004) 51.2 % MCV (test code = 1005) 100.2 fL MCH (test code = 1006) 32.5 PG MCHC (test code = 1007) 32.4 G/DL RDW (test code = 1038) 12.6 % NEUTROPHILS (test code = 1008) 64.2 % LYMPHOCYTES (test code = 1010) 25.2 % MONOCYTES (test code = 1011) 9.0 % EOSINOPHILS (test code = 1012) 1.0 % BASOPHILS (test code = 1013) 0.5 % IMMATURE GRANULOCYTES (test code = 1036) 0.1 % NUCLEATED RBCS (test code = 1065) 0.0 /100WBC'S PLATELET COUNT (test code = 1015) 230 K/UL ABSOLUTE NEUTROPHILS (test c ode = 1066) 6.00 K/UL ABSOLUTE LYMPHOCYTES (test c ode = 1067) 2.35 K/UL ABSOLUTE MONOCYTES (test cod e = 1068) 0.84 K/UL ABSOLUTE EOSINOPHILS (test c ode = 1040) 0.09 K/UL ABSOLUTE BASOPHILS (test cod e = 1069) 0.05 K/UL ABS IMMATURE GRANULOCYTES (t est code = 1020) 0.01 K/UL ABS NUCLEATED RBCS (test cod e = 12304) 0.00 K/UL Dante Ty ShadeCOMPREHENSIVE METABOLIC [id number] 00:00:00* Test Item Value Reference Range Interpretation Comme nts GLUCOSE (test code = 2217) 98 MG/DL BUN (test code = 2208) 18 MG/DL CREATININE (test code = 2214) 0.91 MG/DL eGFR (2020 CKD-EPI) (test code = 50750) 100 ML/MIN/1.73 CALC BUN/CREAT (test code = 2235) 20 RATIO SODIUM (test code = 2231) 141 MEQ/L POTASSIUM (test code = 2228) 4.1 MEQ/L CHLORIDE (test code = 2215) 100 MEQ/L CARBON DIOXIDE (test code = 2206) 22 MEQ/L CALCIUM (test code = 2209) 10.0 MG/DL PROTEIN, TOTAL (test code = 2229) 7.8 G/DL ALBUMIN (test code = 2201) 4.8 G/DL CALC GLOBULIN (test code = 2240) 3.0 G/DL CALC A/G RATIO (test code = 2234) 1.6 RATIO BILIRUBIN, TOTAL (test code = 2207) 0.5 MG/DL ALKALINE PHOSPHATASE (test code = 2204) 85 U/L AST (test code = 2218) 64 U/L ALT (test code = 2219) 97 U/L Dante LaguerreHEPATITIS PROFILE (A,B,C)2024-06-09 00:00:00* Test Item Value Reference Range Interpretation Comme nts HEPATITIS A TOTAL AB (test c ode = 2725) NON-REACTIVE HEPATITIS B SURF AG (test co de = 2739) NON-REACTIVE HEP B CORE TOTAL AB (test co de = 2729) NON-REACTIVE HEPATITIS B SURFACE AB (test code = 2737) NON-REACTIVE HEPATITIS C ANTIBODY (test c ode = 4675) REACTIVE INTERPRETATION HEPATITIS A: (test code = 2552) (NOTE) INTERPRETATION HEPATITIS B: (test code = 05758) (NOTE) INTERPRETATION HEPATITIS C: (test code = 46299) (NOTE) Dante LaguerreHIV 1/2 4TH GEN, RFLX [id number] 00:00:00* Test Item Value Reference Range Interpretation Comme nts HIV 1/2 4TH GEN, RFLX CONF ( test code = 3514) NON-REACTIVE Dante LaguerreLIPID [id number] 00:00:00* Test Item Value Reference Range Interpretation Comme nts CHOLESTEROL (test code = 2210) 120 MG/DL TRIGLYCERIDES (test code = 2232) 46 MG/DL HDL CHOLESTEROL (test code = 2220) 51 MG/DL CALC LDL CHOL (test code = 2237) 56 MG/DL RISK RATIO LDL/HDL (test cod e = 2238) 1.10 RATIO Dante LaguerreHEMOGLOBIN [id number] 00:00:00* Test Item Value Reference Range Interpretation Comme isabela HEMOGLOBIN A1c (test code = 18114) 6.1 % Dante LaguerreCBC W/AUTO [id number] 00:00:00* Test Item Value Reference Range Interpretation Comme nts WBC (test code = 1001) 9.3 K/UL RBC (test code = 1002) 5.11 M/UL HEMOGLOBIN (test code = 1003) 16.6 G/DL HEMATOCRIT (test code = 1004) 51.2 % MCV (test code = 1005) 100.2 fL MCH (test code = 1006) 32.5 PG MCHC (test code = 1007) 32.4 G/DL RDW (test code = 1038) 12.6 % NEUTROPHILS (test code = 1008) 64.2 % LYMPHOCYTES (test code = 1010) 25.2 % MONOCYTES (test code = 1011) 9.0 % EOSINOPHILS (test code = 1012) 1.0 % BASOPHILS (test code = 1013) 0.5 % IMMATURE GRANULOCYTES (test code = 1036) 0.1 % NUCLEATED RBCS (test code = 1065) 0.0 /100WBC'S PLATELET COUNT (test code = 1015) 230 K/UL ABSOLUTE NEUTROPHILS (test c ode = 1066) 6.00 K/UL ABSOLUTE LYMPHOCYTES (test c ode = 1067) 2.35 K/UL ABSOLUTE MONOCYTES (test cod e = 1068) 0.84 K/UL ABSOLUTE EOSINOPHILS (test c ode = 1040) 0.09 K/UL ABSOLUTE BASOPHILS (test cod e = 1069) 0.05 K/UL ABS IMMATURE GRANULOCYTES (t est code = 1020) 0.01 K/UL ABS NUCLEATED RBCS (test cod e = 20089) 0.00 K/UL Dante LaguerreCOMPREHENSIVE METABOLIC [id number] 00:00:00* Test Item Value Reference Range Interpretation Comme nts GLUCOSE (test code = 2217) 98 MG/DL BUN (test code = 2208) 18 MG/DL CREATININE (test code = 2214) 0.91 MG/DL eGFR (2020 CKD-EPI) (test code = 80214) 100 ML/MIN/1.73 CALC BUN/CREAT (test code = 2235) 20 RATIO SODIUM (test code = 2231) 141 MEQ/L POTASSIUM (test code = 2228) 4.1 MEQ/L CHLORIDE (test code = 2215) 100 MEQ/L CARBON DIOXIDE (test code = 2206) 22 MEQ/L CALCIUM (test code = 2209) 10.0 MG/DL PROTEIN, TOTAL (test code = 2229) 7.8 G/DL ALBUMIN (test code = 2201) 4.8 G/DL CALC GLOBULIN (test code = 2240) 3.0 G/DL CALC A/G RATIO (test code = 2234) 1.6 RATIO BILIRUBIN, TOTAL (test code = 2207) 0.5 MG/DL ALKALINE PHOSPHATASE (test code = 2204) 85 U/L AST (test code = 2218) 64 U/L ALT (test code = 2219) 97 U/L Dante LaguerreHEPATITIS PROFILE (A,B,C)2024-06-09 00:00:00* Test Item Value Reference Range Interpretation Comme nts HEPATITIS A TOTAL AB (test c ode = 2725) NON-REACTIVE HEPATITIS B SURF AG (test co de = 2739) NON-REACTIVE HEP B CORE TOTAL AB (test co de = 2729) NON-REACTIVE HEPATITIS B SURFACE AB (test code = 2737) NON-REACTIVE HEPATITIS C ANTIBODY (test c ode = 4624) REACTIVE INTERPRETATION HEPATITIS A: (test code = 2552) (NOTE) INTERPRETATION HEPATITIS B: (test code = 06883) (NOTE) INTERPRETATION HEPATITIS C: (test code = 35652) (NOTE) Dante LaguerreHIV 1/2 4TH GEN, RFLX [id number] 00:00:00* Test Item Value Reference Range Interpretation Comme nts HIV 1/2 4TH GEN, RFLX CONF ( test code = 3514) NON-REACTIVE Dante LaguerreLIPID [id number] 00:00:00* Test Item Value Reference Range Interpretation Comme nts CHOLESTEROL (test code = 2210) 120 MG/DL TRIGLYCERIDES (test code = 2232) 46 MG/DL HDL CHOLESTEROL (test code = 2220) 51 MG/DL CALC LDL CHOL (test code = 2237) 56 MG/DL RISK RATIO LDL/HDL (test cod e = 2238) 1.10 RATIO Dante LaguerreHEMOGLOBIN [id number] 00:00:00* Test Item Value Reference Range Interpretation Comme isabela HEMOGLOBIN A1c (test code = 59630) 6.1 % Dante LaguerreCBC W/AUTO [id number] 00:00:00* Test Item Value Reference Range Interpretation Comme nts WBC (test code = 1001) 9.3 K/UL RBC (test code = 1002) 5.11 M/UL HEMOGLOBIN (test code = 1003) 16.6 G/DL HEMATOCRIT (test code = 1004) 51.2 % MCV (test code = 1005) 100.2 fL MCH (test code = 1006) 32.5 PG MCHC (test code = 1007) 32.4 G/DL RDW (test code = 1038) 12.6 % NEUTROPHILS (test code = 1008) 64.2 % LYMPHOCYTES (test code = 1010) 25.2 % MONOCYTES (test code = 1011) 9.0 % EOSINOPHILS (test code = 1012) 1.0 % BASOPHILS (test code = 1013) 0.5 % IMMATURE GRANULOCYTES (test code = 1036) 0.1 % NUCLEATED RBCS (test code = 1065) 0.0 /100WBC'S PLATELET COUNT (test code = 1015) 230 K/UL ABSOLUTE NEUTROPHILS (test c ode = 1066) 6.00 K/UL ABSOLUTE LYMPHOCYTES (test c ode = 1067) 2.35 K/UL ABSOLUTE MONOCYTES (test cod e = 1068) 0.84 K/UL ABSOLUTE EOSINOPHILS (test c ode = 1040) 0.09 K/UL ABSOLUTE BASOPHILS (test cod e = 1069) 0.05 K/UL ABS IMMATURE GRANULOCYTES (t est code = 1020) 0.01 K/UL ABS NUCLEATED RBCS (test cod e = 68849) 0.00 K/UL Dante F ShadeCOMPREHENSIVE METABOLIC [id number] 00:00:00* Test Item Value Reference Range Interpretation Comme nts GLUCOSE (test code = 2217) 98 MG/DL BUN (test code = 2208) 18 MG/DL CREATININE (test code = 2214) 0.91 MG/DL eGFR (2020 CKD-EPI) (test code = 73514) 100 ML/MIN/1.73 CALC BUN/CREAT (test code = 2235) 20 RATIO SODIUM (test code = 2231) 141 MEQ/L POTASSIUM (test code = 2228) 4.1 MEQ/L CHLORIDE (test code = 2215) 100 MEQ/L CARBON DIOXIDE (test code = 2206) 22 MEQ/L CALCIUM (test code = 2209) 10.0 MG/DL PROTEIN, TOTAL (test code = 2229) 7.8 G/DL ALBUMIN (test code = 2201) 4.8 G/DL CALC GLOBULIN (test code = 2240) 3.0 G/DL CALC A/G RATIO (test code = 2234) 1.6 RATIO BILIRUBIN, TOTAL (test code = 2207) 0.5 MG/DL ALKALINE PHOSPHATASE (test code = 2204) 85 U/L AST (test code = 2218) 64 U/L ALT (test code = 2219) 97 U/L Dante LaguerreHEPATITIS PROFILE (A,B,C)2024-06-09 00:00:00* Test Item Value Reference Range Interpretation Comme nts HEPATITIS A TOTAL AB (test c ode = 2725) NON-REACTIVE HEPATITIS B SURF AG (test co de = 2739) NON-REACTIVE HEP B CORE TOTAL AB (test co de = 2729) NON-REACTIVE HEPATITIS B SURFACE AB (test code = 2737) NON-REACTIVE HEPATITIS C ANTIBODY (test c ode = 6346) REACTIVE INTERPRETATION HEPATITIS A: (test code = 2552) (NOTE) INTERPRETATION HEPATITIS B: (test code = 44710) (NOTE) INTERPRETATION HEPATITIS C: (test code = 00739) (NOTE) Dante LaguerreHIV 1/2 4TH GEN, RFLX [id number] 00:00:00* Test Item Value Reference Range Interpretation Comme nts HIV 1/2 4TH GEN, RFLX CONF ( test code = 3514) NON-REACTIVE Dante LaguerreLIPID [id number] 00:00:00* Test Item Value Reference Range Interpretation Comme nts CHOLESTEROL (test code = 2210) 120 MG/DL TRIGLYCERIDES (test code = 2232) 46 MG/DL HDL CHOLESTEROL (test code = 2220) 51 MG/DL CALC LDL CHOL (test code = 2237) 56 MG/DL RISK RATIO LDL/HDL (test cod e = 2238) 1.10 RATIO Dante LaguerreHEMOGLOBIN [id number] 00:00:00* Test Item Value Reference Range Interpretation Comme nts HEMOGLOBIN A1c (test code = 55279) 6.1 % Dante LaguerreCBC W/AUTO [id number] 00:00:00* Test Item Value Reference Range Interpretation Comme nts WBC (test code = 1001) 9.3 K/UL RBC (test code = 1002) 5.11 M/UL HEMOGLOBIN (test code = 1003) 16.6 G/DL HEMATOCRIT (test code = 1004) 51.2 % MCV (test code = 1005) 100.2 fL MCH (test code = 1006) 32.5 PG MCHC (test code = 1007) 32.4 G/DL RDW (test code = 1038) 12.6 % NEUTROPHILS (test code = 1008) 64.2 % LYMPHOCYTES (test code = 1010) 25.2 % MONOCYTES (test code = 1011) 9.0 % EOSINOPHILS (test code = 1012) 1.0 % BASOPHILS (test code = 1013) 0.5 % IMMATURE GRANULOCYTES (test code = 1036) 0.1 % NUCLEATED RBCS (test code = 1065) 0.0 /100WBC'S PLATELET COUNT (test code = 1015) 230 K/UL ABSOLUTE NEUTROPHILS (test c ode = 1066) 6.00 K/UL ABSOLUTE LYMPHOCYTES (test c ode = 1067) 2.35 K/UL ABSOLUTE MONOCYTES (test cod e = 1068) 0.84 K/UL ABSOLUTE EOSINOPHILS (test c ode = 1040) 0.09 K/UL ABSOLUTE BASOPHILS (test cod e = 1069) 0.05 K/UL ABS IMMATURE GRANULOCYTES (t est code = 1020) 0.01 K/UL ABS NUCLEATED RBCS (test cod e = 47253) 0.00 K/UL Dante F ShadeCOMPREHENSIVE METABOLIC [id number] 00:00:00* Test Item Value Reference Range Interpretation Comme nts GLUCOSE (test code = 2217) 98 MG/DL BUN (test code = 2208) 18 MG/DL CREATININE (test code = 2214) 0.91 MG/DL eGFR (2020 CKD-EPI) (test code = 48785) 100 ML/MIN/1.73 CALC BUN/CREAT (test code = 2235) 20 RATIO SODIUM (test code = 2231) 141 MEQ/L POTASSIUM (test code = 2228) 4.1 MEQ/L CHLORIDE (test code = 2215) 100 MEQ/L CARBON DIOXIDE (test code = 2206) 22 MEQ/L CALCIUM (test code = 2209) 10.0 MG/DL PROTEIN, TOTAL (test code = 2229) 7.8 G/DL ALBUMIN (test code = 2201) 4.8 G/DL CALC GLOBULIN (test code = 2240) 3.0 G/DL CALC A/G RATIO (test code = 2234) 1.6 RATIO BILIRUBIN, TOTAL (test code = 2207) 0.5 MG/DL ALKALINE PHOSPHATASE (test code = 2204) 85 U/L AST (test code = 2218) 64 U/L ALT (test code = 2219) 97 U/L Dante LaguerreHEPATITIS PROFILE (A,B,C)2024-06-09 00:00:00* Test Item Value Reference Range Interpretation Comme nts HEPATITIS A TOTAL AB (test c ode = 2725) NON-REACTIVE HEPATITIS B SURF AG (test co de = 2739) NON-REACTIVE HEP B CORE TOTAL AB (test co de = 2729) NON-REACTIVE HEPATITIS B SURFACE AB (test code = 2737) NON-REACTIVE HEPATITIS C ANTIBODY (test c ode = 6881) REACTIVE INTERPRETATION HEPATITIS A: (test code = 2552) (NOTE) INTERPRETATION HEPATITIS B: (test code = 08908) (NOTE) INTERPRETATION HEPATITIS C: (test code = 11724) (NOTE) Dante LaguerreHIV 1/2 4TH GEN, RFLX [id number] 00:00:00* Test Item Value Reference Range Interpretation Comme isabela HIV 1/2 4TH GEN, RFLX CONF ( test code = 3514) NON-REACTIVE Dante LaguerreLIPID [id number] 00:00:00* Test Item Value Reference Range Interpretation Comme nts CHOLESTEROL (test code = 2210) 120 MG/DL TRIGLYCERIDES (test code = 2232) 46 MG/DL HDL CHOLESTEROL (test code = 2220) 51 MG/DL CALC LDL CHOL (test code = 2237) 56 MG/DL RISK RATIO LDL/HDL (test cod e = 2238) 1.10 RATIO Dante LaguerreHEMOGLOBIN [id number] 00:00:00* Test Item Value Reference Range Interpretation Comme isabela HEMOGLOBIN A1c (test code = 75095) 6.1 % Dante LaguerreCBC W/AUTO [id number] 00:00:00* Test Item Value Reference Range Interpretation Comme nts WBC (test code = 1001) 9.3 K/UL RBC (test code = 1002) 5.11 M/UL HEMOGLOBIN (test code = 1003) 16.6 G/DL HEMATOCRIT (test code = 1004) 51.2 % MCV (test code = 1005) 100.2 fL MCH (test code = 1006) 32.5 PG MCHC (test code = 1007) 32.4 G/DL RDW (test code = 1038) 12.6 % NEUTROPHILS (test code = 1008) 64.2 % LYMPHOCYTES (test code = 1010) 25.2 % MONOCYTES (test code = 1011) 9.0 % EOSINOPHILS (test code = 1012) 1.0 % BASOPHILS (test code = 1013) 0.5 % IMMATURE GRANULOCYTES (test code = 1036) 0.1 % NUCLEATED RBCS (test code = 1065) 0.0 /100WBC'S PLATELET COUNT (test code = 1015) 230 K/UL ABSOLUTE NEUTROPHILS (test c ode = 1066) 6.00 K/UL ABSOLUTE LYMPHOCYTES (test c ode = 1067) 2.35 K/UL ABSOLUTE MONOCYTES (test cod e = 1068) 0.84 K/UL ABSOLUTE EOSINOPHILS (test c ode = 1040) 0.09 K/UL ABSOLUTE BASOPHILS (test cod e = 1069) 0.05 K/UL ABS IMMATURE GRANULOCYTES (t est code = 1020) 0.01 K/UL ABS NUCLEATED RBCS (test cod e = 99429) 0.00 K/UL Dante LaguerreCOMPREHENSIVE METABOLIC [id number] 00:00:00* Test Item Value Reference Range Interpretation Comme nts GLUCOSE (test code = 2217) 98 MG/DL BUN (test code = 2208) 18 MG/DL CREATININE (test code = 2214) 0.91 MG/DL eGFR (2020 CKD-EPI) (test code = 93527) 100 ML/MIN/1.73 CALC BUN/CREAT (test code = 2235) 20 RATIO SODIUM (test code = 2231) 141 MEQ/L POTASSIUM (test code = 2228) 4.1 MEQ/L CHLORIDE (test code = 2215) 100 MEQ/L CARBON DIOXIDE (test code = 2206) 22 MEQ/L CALCIUM (test code = 2209) 10.0 MG/DL PROTEIN, TOTAL (test code = 2229) 7.8 G/DL ALBUMIN (test code = 2201) 4.8 G/DL CALC GLOBULIN (test code = 2240) 3.0 G/DL CALC A/G RATIO (test code = 2234) 1.6 RATIO BILIRUBIN, TOTAL (test code = 2207) 0.5 MG/DL ALKALINE PHOSPHATASE (test code = 2204) 85 U/L AST (test code = 2218) 64 U/L ALT (test code = 2219) 97 U/L Dante LaguerreHEPATITIS PROFILE (A,B,C)2024-06-09 00:00:00* Test Item Value Reference Range Interpretation Comme nts HEPATITIS A TOTAL AB (test c ode = 2725) NON-REACTIVE HEPATITIS B SURF AG (test co de = 2739) NON-REACTIVE HEP B CORE TOTAL AB (test co de = 2729) NON-REACTIVE HEPATITIS B SURFACE AB (test code = 2737) NON-REACTIVE HEPATITIS C ANTIBODY (test c ode = 5230) REACTIVE INTERPRETATION HEPATITIS A: (test code = 2552) (NOTE) INTERPRETATION HEPATITIS B: (test code = 28012) (NOTE) INTERPRETATION HEPATITIS C: (test code = 01253) (NOTE) Dante LaguerreHIV 1/2 4TH GEN, RFLX [id number] 00:00:00* Test Item Value Reference Range Interpretation Comme nts HIV 1/2 4TH GEN, RFLX CONF ( test code = 3514) NON-REACTIVE Dante LaguerreLIPID [id number] 00:00:00* Test Item Value Reference Range Interpretation Comme nts CHOLESTEROL (test code = 2210) 120 MG/DL TRIGLYCERIDES (test code = 2232) 46 MG/DL HDL CHOLESTEROL (test code = 2220) 51 MG/DL CALC LDL CHOL (test code = 2237) 56 MG/DL RISK RATIO LDL/HDL (test cod e = 2238) 1.10 RATIO Dante LaguerreHEMOGLOBIN [id number] 00:00:00* Test Item Value Reference Range Interpretation Comme nts HEMOGLOBIN A1c (test code = 43209) 6.1 % Dante LaguerreCBC W/AUTO [id number] 00:00:00* Test Item Value Reference Range Interpretation Comme nts WBC (test code = 1001) 9.3 K/UL RBC (test code = 1002) 5.11 M/UL HEMOGLOBIN (test code = 1003) 16.6 G/DL HEMATOCRIT (test code = 1004) 51.2 % MCV (test code = 1005) 100.2 fL MCH (test code = 1006) 32.5 PG MCHC (test code = 1007) 32.4 G/DL RDW (test code = 1038) 12.6 % NEUTROPHILS (test code = 1008) 64.2 % LYMPHOCYTES (test code = 1010) 25.2 % MONOCYTES (test code = 1011) 9.0 % EOSINOPHILS (test code = 1012) 1.0 % BASOPHILS (test code = 1013) 0.5 % IMMATURE GRANULOCYTES (test code = 1036) 0.1 % NUCLEATED RBCS (test code = 1065) 0.0 /100WBC'S PLATELET COUNT (test code = 1015) 230 K/UL ABSOLUTE NEUTROPHILS (test c ode = 1066) 6.00 K/UL ABSOLUTE LYMPHOCYTES (test c ode = 1067) 2.35 K/UL ABSOLUTE MONOCYTES (test cod e = 1068) 0.84 K/UL ABSOLUTE EOSINOPHILS (test c ode = 1040) 0.09 K/UL ABSOLUTE BASOPHILS (test cod e = 1069) 0.05 K/UL ABS IMMATURE GRANULOCYTES (t est code = 1020) 0.01 K/UL ABS NUCLEATED RBCS (test cod e = 28653) 0.00 K/UL Dante LaguerreCOMPREHENSIVE METABOLIC [id number] 00:00:00* Test Item Value Reference Range Interpretation Comme nts GLUCOSE (test code = 2217) 98 MG/DL BUN (test code = 2208) 18 MG/DL CREATININE (test code = 2214) 0.91 MG/DL eGFR (2020 CKD-EPI) (test code = 04841) 100 ML/MIN/1.73 CALC BUN/CREAT (test code = 2235) 20 RATIO SODIUM (test code = 2231) 141 MEQ/L POTASSIUM (test code = 2228) 4.1 MEQ/L CHLORIDE (test code = 2215) 100 MEQ/L CARBON DIOXIDE (test code = 2206) 22 MEQ/L CALCIUM (test code = 2209) 10.0 MG/DL PROTEIN, TOTAL (test code = 2229) 7.8 G/DL ALBUMIN (test code = 2201) 4.8 G/DL CALC GLOBULIN (test code = 2240) 3.0 G/DL CALC A/G RATIO (test code = 2234) 1.6 RATIO BILIRUBIN, TOTAL (test code = 2207) 0.5 MG/DL ALKALINE PHOSPHATASE (test code = 2204) 85 U/L AST (test code = 2218) 64 U/L ALT (test code = 2219) 97 U/L Dante LaguerreHEPATITIS PROFILE (A,B,C)2024-06-09 00:00:00* Test Item Value Reference Range Interpretation Comme nts HEPATITIS A TOTAL AB (test c ode = 2725) NON-REACTIVE HEPATITIS B SURF AG (test co de = 2739) NON-REACTIVE HEP B CORE TOTAL AB (test co de = 2729) NON-REACTIVE HEPATITIS B SURFACE AB (test code = 2737) NON-REACTIVE HEPATITIS C ANTIBODY (test c ode = 4675) REACTIVE INTERPRETATION HEPATITIS A: (test code = 2552) (NOTE) INTERPRETATION HEPATITIS B: (test code = 78428) (NOTE) INTERPRETATION HEPATITIS C: (test code = 68802) (NOTE) Dante LaguerreHIV 1/2 4TH GEN, RFLX [id number] 00:00:00* Test Item Value Reference Range Interpretation Comme isabela HIV 1/2 4TH GEN, RFLX CONF ( test code = 3514) NON-REACTIVE Dante LaguerreBLOOD CULTURE [id number] 17:02:25* Test Item Value Reference Range Interpretation Comme nts Blood Culture-Aerobic (test code = 18745-2) Culture positive. See Blood Culture Workup for additional information. No growth AA Previous preliminary verified result was Culture In Progress on 04/23/2024 at 2301 CDT Blood Culture-Anaerobic (test code = 83912-4) Culture positive. See Blood Culture Workup for additional information. No growth AA Previous preliminary verified result was Culture In Progress on 04/25/2024 at 0023 CDT Lab Interpretation (test code = 96462-3) [facility] [id number] 05:16:59* Test Item Value Reference Range Interpretation Comme nts Blood Pathogens by DNA Comment (test code = 35472-7) No organisms included in the Blood DNA Probe test panel were detected. Further identification workup to be performed by culture testing methods. AKOSUA (test code = AKOSUA) See blood culture result for additional information. ?Testing included eight identification and six resistance marker targets. [facility]2024-04-24 16:37:52* Test Item Value Reference Range Interpretation Comme [facility] POCT GLU (test code = 9872235413) 145 mg/dL 70-110 H Lab Interpretation (test cod e = 71427-4) Abnormal [facility] 1 [id number] 00:25:43EXAM:XR CHEST 1 VW HISTORY: 53 years-old Male; Indication for study: pneumonia COMPARISON: None TECHNIQUE: Frontal chest radiograph was obtained. FINDINGS: Lungs/Pleura: Adequate lung volume. ?The lungs are clear with no focalconsolidation. There is no pleural effusion or pneumothorax. Heart/Mediastinum: The cardiomediastinal silhouette is normal. ? Bones and soft tissues: No acute abnormality detected. [facility] ABDOMEN PELVIS W [id number] 23:38:15Exam: CT Abdomen and Pelvis with contrast, [...] osseous abnormality.Soft tissues: Small fat-containing umbilical hernia. [facility]neLactic Acid Whole [id number] 21:35:39* Test Item Value Reference Range Interpretation Comme nts LACTIC ACID (test code = 1998261273) 1.09 mmol/L 0.50-2.20 Lab Interpretation (test cod e = 22574-7) Normal [facility]. PYLORI (BREATH)2023-03-11 14:25:38* Test Item Value Reference Range Interpretation Comme nts H. PYLORI (BREATH) (test code = 70766) NEGATIVE NEGATIVE [facility] has important pathology staff changes effective 01/21/2023. New pathology staff will provide uninterrupted, excellent patient care and clinical consultation. See URL: [email or web address]. UNLESS OTHERWISE INDICATED, ALL TESTING PERFORMED AT [facility] [address] [place] [address] BUCKLE SEWER: JUNITO CHILEL M.D. CLIA NUMBER [id number] [facility] [place] [id number] H. PYLORI (BREATH)2023-03-11 00:00:00* Test Item Value Reference Range Interpretation Comme nts H. PYLORI (BREATH) (test cod e = 95460) NEGATIVE Dante F AustinH. PYLORI (BREATH)2023-03-11 00:00:00* Test Item Value Reference Range Interpretation Comme nts H. PYLORI (BREATH) (test cod e = 14374) NEGATIVE Dante F AustinH. PYLORI (BREATH)2023-03-11 00:00:00* Test Item Value Reference Range Interpretation Comme nts H. PYLORI (BREATH) (test cod e = 31447) NEGATIVE Dante F AustinH. PYLORI (BREATH)2023-03-11 00:00:00* Test Item Value Reference Range Interpretation Comme nts H. PYLORI (BREATH) (test cod e = 06644) NEGATIVE Dante F AustinH. PYLORI (BREATH)2023-03-11 00:00:00* Test Item Value Reference Range Interpretation Comme nts H. PYLORI (BREATH) (test cod e = 84308) NEGATIVE Dante F AustinH. PYLORI (BREATH)2023-03-11 00:00:00* Test Item Value Reference Range Interpretation Comme nts H. PYLORI (BREATH) (test cod e = 56419) NEGATIVE Dante F AustinH. PYLORI (BREATH)2023-03-11 00:00:00* Test Item Value Reference Range Interpretation Comme nts H. PYLORI (BREATH) (test cod e = 86463) NEGATIVE Dante F AustinH. PYLORI (BREATH)2023-03-11 00:00:00* Test Item Value Reference Range Interpretation Comme nts H. PYLORI (BREATH) (test cod e = 50846) NEGATIVE Dante Crawford AustinH. PYLORI (BREATH)2023-03-11 00:00:00* Test Item Value Reference Range Interpretation Comme nts H. PYLORI (BREATH) (test cod e = 81774) NEGATIVE Dante Crawford AustinH. PYLORI (BREATH)2023-03-11 00:00:00* Test Item Value Reference Range Interpretation Comme nts H. PYLORI (BREATH) (test cod e = 92987) NEGATIVE Dante Crawford AustinH. PYLORI (BREATH)2023-03-11 00:00:00* Test Item Value Reference Range Interpretation Comme nts H. PYLORI (BREATH) (test cod e = 44143) NEGATIVE Dante Crawford AustinC-REACTIVE [id number] 00:00:00* Test Item Value Reference Range Interpretation Comme nts C-REACTIVE PROTEIN (test cod e = 3513) 11.9 MG/DL Dante Crawford AustinC-REACTIVE [id number] 00:00:00* Test Item Value Reference Range Interpretation Comme nts C-REACTIVE PROTEIN (test cod e = 3513) 11.9 MG/DL Dante Crawford AustinC-REACTIVE [id number] 00:00:00* Test Item Value Reference Range Interpretation Comme nts C-REACTIVE PROTEIN (test cod e = 3513) 11.9 MG/DL Dante Ty AustinC-REACTIVE [id number] 00:00:00* Test Item Value Reference Range Interpretation Comme nts C-REACTIVE PROTEIN (test cod e = 3513) 11.9 MG/DL Dante Ty AustinC-REACTIVE [id number] 00:00:00* Test Item Value Reference Range Interpretation Comme nts C-REACTIVE PROTEIN (test cod e = 3513) 11.9 MG/DL Dante Ty AustinC-REACTIVE [id number] 00:00:00* Test Item Value Reference Range Interpretation Comme nts C-REACTIVE PROTEIN (test cod e = 3513) 11.9 MG/DL Dante Ty AustinC-REACTIVE [id number] 00:00:00* Test Item Value Reference Range Interpretation Comme nts C-REACTIVE PROTEIN (test cod e = 3513) 11.9 MG/DL Dante Ty AustinC-REACTIVE [id number] 00:00:00* Test Item Value Reference Range Interpretation Comme nts C-REACTIVE PROTEIN (test cod e = 3513) 11.9 MG/DL Dante Crawford AustinC-REACTIVE [id number] 00:00:00* Test Item Value Reference Range Interpretation Comme nts C-REACTIVE PROTEIN (test cod e = 3513) 11.9 MG/DL Dante Crawford AustinC-REACTIVE [id number] 00:00:00* Test Item Value Reference Range Interpretation Comme nts C-REACTIVE PROTEIN (test cod e = 3513) 11.9 MG/DL Dante Crawford AustinC-REACTIVE [id number] 00:00:00* Test Item Value Reference Range Interpretation Comme nts C-REACTIVE PROTEIN (test cod e = 3513) 11.9 MG/DL Dante Benavidez (ANTI-NUCLEAR AB) WITH REFLEX [id number] 00:00:00* Test Item Value Reference Range Interpretation Comme nts ANTI-NUCLEAR ANTIBODIES (lyndsay t code = 3506) NEGATIVE RAMAKRISHNA PATTERN (REPORTED TITER) (test code = 93249) SEE BELOW HOMOGENEOUS (test code = 30920) NEGATIVE TITER SPECKLED (test code = 665359) NEGATIVE TITER DENSE FINE SPECKLED (test co de = 43510) NEGATIVE TITER CENTROMERE (test code = 938891) NEGATIVE TITER COARSE SPECKLED (test code = 417209) NEGATIVE TITER DISCRETE NUCLEAR DOTS (test code = 779784) NEGATIVE TITER NUCLEOLAR (test code = 898113) NEGATIVE TITER NUCLEAR MEMBRANE (test code = 518392) NEGATIVE TITER CYTO. RETICULAR (GLENN) (test code = 608476) NEGATIVE COMMENTS (test code = 117949) NONE METHOD (test code = 92927) (NOTE) Dante Benavidez (ANTI-NUCLEAR AB) WITH REFLEX [id number] 00:00:00* Test Item Value Reference Range Interpretation Comme nts ANTI-NUCLEAR ANTIBODIES (lyndsay t code = 3506) NEGATIVE RAMAKRISHNA PATTERN (REPORTED TITER) (test code = 91287) SEE BELOW HOMOGENEOUS (test code = 29785) NEGATIVE TITER SPECKLED (test code = 587932) NEGATIVE TITER DENSE FINE SPECKLED (test co de = 63832) NEGATIVE TITER CENTROMERE (test code = 912711) NEGATIVE TITER COARSE SPECKLED (test code = 760802) NEGATIVE TITER DISCRETE NUCLEAR DOTS (test code = 878579) NEGATIVE TITER NUCLEOLAR (test code = 529871) NEGATIVE TITER NUCLEAR MEMBRANE (test code = 393595) NEGATIVE TITER CYTO. RETICULAR (GLENN) (test code = 540280) NEGATIVE COMMENTS (test code = 496434) NONE METHOD (test code = 25802) (NOTE) Dante Crawford Reema (ANTI-NUCLEAR AB) WITH REFLEX [id number] 00:00:00* Test Item Value Reference Range Interpretation Comme nts ANTI-NUCLEAR ANTIBODIES (lyndsay t code = 3506) NEGATIVE RAMAKRISHNA PATTERN (REPORTED TITER) (test code = 72657) SEE BELOW HOMOGENEOUS (test code = 37265) NEGATIVE TITER SPECKLED (test code = 191336) NEGATIVE TITER DENSE FINE SPECKLED (test co de = 96205) NEGATIVE TITER CENTROMERE (test code = 010474) NEGATIVE TITER COARSE SPECKLED (test code = 566020) NEGATIVE TITER DISCRETE NUCLEAR DOTS (test code = 830314) NEGATIVE TITER NUCLEOLAR (test code = 311217) NEGATIVE TITER NUCLEAR MEMBRANE (test code = 432265) NEGATIVE TITER CYTO. RETICULAR (GLENN) (test code = 157421) NEGATIVE COMMENTS (test code = 088158) NONE METHOD (test code = 34742) (NOTE) Dante Crawford Reema (ANTI-NUCLEAR AB) WITH REFLEX [id number] 00:00:00* Test Item Value Reference Range Interpretation Comme nts ANTI-NUCLEAR ANTIBODIES (lyndsay t code = 3506) NEGATIVE RAMAKRISHNA PATTERN (REPORTED TITER) (test code = 64887) SEE BELOW HOMOGENEOUS (test code = 25887) NEGATIVE TITER SPECKLED (test code = 797915) NEGATIVE TITER DENSE FINE SPECKLED (test co de = 45511) NEGATIVE TITER CENTROMERE (test code = 894334) NEGATIVE TITER COARSE SPECKLED (test code = 212777) NEGATIVE TITER DISCRETE NUCLEAR DOTS (test code = 921768) NEGATIVE TITER NUCLEOLAR (test code = 452880) NEGATIVE TITER NUCLEAR MEMBRANE (test code = 463275) NEGATIVE TITER CYTO. RETICULAR (GLENN) (test code = 025081) NEGATIVE COMMENTS (test code = 975221) NONE METHOD (test code = 52276) (NOTE) Dante Crawford Reema (ANTI-NUCLEAR AB) WITH REFLEX [id number] 00:00:00* Test Item Value Reference Range Interpretation Comme nts ANTI-NUCLEAR ANTIBODIES (lyndsay t code = 3506) NEGATIVE RAMAKRISHNA PATTERN (REPORTED TITER) (test code = 31597) SEE BELOW HOMOGENEOUS (test code = 16113) NEGATIVE TITER SPECKLED (test code = 839575) NEGATIVE TITER DENSE FINE SPECKLED (test co de = 46853) NEGATIVE TITER CENTROMERE (test code = 290188) NEGATIVE TITER COARSE SPECKLED (test code = 582463) NEGATIVE TITER DISCRETE NUCLEAR DOTS (test code = 622719) NEGATIVE TITER NUCLEOLAR (test code = 117078) NEGATIVE TITER NUCLEAR MEMBRANE (test code = 543610) NEGATIVE TITER CYTO. RETICULAR (GLENN) (test code = 303149) NEGATIVE COMMENTS (test code = 280801) NONE METHOD (test code = 43062) (NOTE) Dante Crawford Reema (ANTI-NUCLEAR AB) WITH REFLEX [id number] 00:00:00* Test Item Value Reference Range Interpretation Comme nts ANTI-NUCLEAR ANTIBODIES (lyndsay t code = 3506) NEGATIVE RAMAKRISHNA PATTERN (REPORTED TITER) (test code = 92853) SEE BELOW HOMOGENEOUS (test code = 09292) NEGATIVE TITER SPECKLED (test code = 410077) NEGATIVE TITER DENSE FINE SPECKLED (test co de = 03809) NEGATIVE TITER CENTROMERE (test code = 193258) NEGATIVE TITER COARSE SPECKLED (test code = 310686) NEGATIVE TITER DISCRETE NUCLEAR DOTS (test code = 347802) NEGATIVE TITER NUCLEOLAR (test code = 799433) NEGATIVE TITER NUCLEAR MEMBRANE (test code = 567851) NEGATIVE TITER CYTO. RETICULAR (GLENN) (test code = 390952) NEGATIVE COMMENTS (test code = 173833) NONE METHOD (test code = 95874) (NOTE) Dante F Reema (ANTI-NUCLEAR AB) WITH REFLEX [id number] 00:00:00* Test Item Value Reference Range Interpretation Comme nts ANTI-NUCLEAR ANTIBODIES (lyndsay t code = 3506) NEGATIVE RAMAKRISHNA PATTERN (REPORTED TITER) (test code = 86735) SEE BELOW HOMOGENEOUS (test code = 71317) NEGATIVE TITER SPECKLED (test code = 030307) NEGATIVE TITER DENSE FINE SPECKLED (test co de = 01336) NEGATIVE TITER CENTROMERE (test code = 107072) NEGATIVE TITER COARSE SPECKLED (test code = 215099) NEGATIVE TITER DISCRETE NUCLEAR DOTS (test code = 394453) NEGATIVE TITER NUCLEOLAR (test code = 196289) NEGATIVE TITER NUCLEAR MEMBRANE (test code = 720496) NEGATIVE TITER CYTO. RETICULAR (GLENN) (test code = 804704) NEGATIVE COMMENTS (test code = 781599) NONE METHOD (test code = 59174) (NOTE) Dante Crawford Reema (ANTI-NUCLEAR AB) WITH REFLEX [id number] 00:00:00* Test Item Value Reference Range Interpretation Comme nts ANTI-NUCLEAR ANTIBODIES (lyndsay t code = 3506) NEGATIVE RAMAKRISHNA PATTERN (REPORTED TITER) (test code = 13820) SEE BELOW HOMOGENEOUS (test code = 59593) NEGATIVE TITER SPECKLED (test code = 238608) NEGATIVE TITER DENSE FINE SPECKLED (test co de = 52844) NEGATIVE TITER CENTROMERE (test code = 159445) NEGATIVE TITER COARSE SPECKLED (test code = 943227) NEGATIVE TITER DISCRETE NUCLEAR DOTS (test code = 123213) NEGATIVE TITER NUCLEOLAR (test code = 454175) NEGATIVE TITER NUCLEAR MEMBRANE (test code = 767079) NEGATIVE TITER CYTO. RETICULAR (GLENN) (test code = 828657) NEGATIVE COMMENTS (test code = 322469) NONE METHOD (test code = 04055) (NOTE) Dante Crawford Reema (ANTI-NUCLEAR AB) WITH REFLEX [id number] 00:00:00* Test Item Value Reference Range Interpretation Comme nts ANTI-NUCLEAR ANTIBODIES (lyndsay t code = 3506) NEGATIVE RAMAKRISHNA PATTERN (REPORTED TITER) (test code = 12909) SEE BELOW HOMOGENEOUS (test code = 21832) NEGATIVE TITER SPECKLED (test code = 050161) NEGATIVE TITER DENSE FINE SPECKLED (test co de = 35079) NEGATIVE TITER CENTROMERE (test code = 397267) NEGATIVE TITER COARSE SPECKLED (test code = 987198) NEGATIVE TITER DISCRETE NUCLEAR DOTS (test code = 004388) NEGATIVE TITER NUCLEOLAR (test code = 163195) NEGATIVE TITER NUCLEAR MEMBRANE (test code = 919221) NEGATIVE TITER CYTO. RETICULAR (GLENN) (test code = 266325) NEGATIVE COMMENTS (test code = 495980) NONE METHOD (test code = 47794) (NOTE) Dante Crawford Reema (ANTI-NUCLEAR AB) WITH REFLEX [id number] 00:00:00* Test Item Value Reference Range Interpretation Comme nts ANTI-NUCLEAR ANTIBODIES (lyndsay t code = 3506) NEGATIVE RAMAKRISHNA PATTERN (REPORTED TITER) (test code = 05968) SEE BELOW HOMOGENEOUS (test code = 11380) NEGATIVE TITER SPECKLED (test code = 317868) NEGATIVE TITER DENSE FINE SPECKLED (test co de = 81603) NEGATIVE TITER CENTROMERE (test code = 873701) NEGATIVE TITER COARSE SPECKLED (test code = 825680) NEGATIVE TITER DISCRETE NUCLEAR DOTS (test code = 729901) NEGATIVE TITER NUCLEOLAR (test code = 493319) NEGATIVE TITER NUCLEAR MEMBRANE (test code = 163346) NEGATIVE TITER CYTO. RETICULAR (GLENN) (test code = 193504) NEGATIVE COMMENTS (test code = 727260) NONE METHOD (test code = 44476) (NOTE) Dante LaguerreRAMAKRISHNA (ANTI-NUCLEAR AB) WITH REFLEX [id number] 00:00:00* Test Item Value Reference Range Interpretation Comme nts ANTI-NUCLEAR ANTIBODIES (lyndsay t code = 3506) NEGATIVE RAMAKRISHNA PATTERN (REPORTED TITER) (test code = 94117) SEE BELOW HOMOGENEOUS (test code = 83361) NEGATIVE TITER SPECKLED (test code = 933399) NEGATIVE TITER DENSE FINE SPECKLED (test co de = 52685) NEGATIVE TITER CENTROMERE (test code = 272166) NEGATIVE TITER COARSE SPECKLED (test code = 825069) NEGATIVE TITER DISCRETE NUCLEAR DOTS (test code = 265698) NEGATIVE TITER NUCLEOLAR (test code = 369915) NEGATIVE TITER NUCLEAR MEMBRANE (test code = 653962) NEGATIVE TITER CYTO. RETICULAR (GLENN) (test code = 155334) NEGATIVE COMMENTS (test code = 752582) NONE METHOD (test code = 85916) (NOTE) Dante LaguerreCOMPREHENSIVE METABOLIC [id number] 00:00:00* Test Item Value Reference Range Interpretation Comme nts GLUCOSE (test code = 2217) 157 MG/DL BUN (test code = 2208) 21 MG/DL CREATININE (test code = 2214) 0.79 MG/DL eGFR (2020 CKD-EPI) (test code = 52979) 106 ML/MIN/1.73 CALC BUN/CREAT (test code = [...] = 2219) 71 U/L Dante Crawford AustinSEDIMENTATION [id number] 00:00:00* Test Item Value Reference Range Interpretation Comme nts SEDIMENTATION RATE (test cod e = 1017) 5 MM/HOUR Dante F AustinC-REACTIVE [id number] 00:00:00* Test Item Value Reference Range Interpretation Comme nts C-REACTIVE PROTEIN (test cod e = 3513) 1.4 MG/DL Dante F AustinURIC [id number] 00:00:00* Test Item Value Reference Range Interpretation Comme nts URIC ACID (test code = 2233) 5.4 MG/DL Dante Ty AustinCOMPREHENSIVE METABOLIC [id number] 00:00:00* Test Item Value Reference Range Interpretation Comme nts GLUCOSE (test code = 2217) 157 MG/DL BUN (test code = 2208) 21 MG/DL CREATININE (test code = 2214) 0.79 MG/DL eGFR (2020 CKD-EPI) (test code = 98665) 106 ML/MIN/1.73 CALC BUN/CREAT (test code = [...] = 2219) 71 U/L Dante Crawford AustinSEDIMENTATION [id number] 00:00:00* Test Item Value Reference Range Interpretation Comme nts SEDIMENTATION RATE (test cod e = 1017) 5 MM/HOUR Dante F AustinC-REACTIVE [id number] 00:00:00* Test Item Value Reference Range Interpretation Comme nts C-REACTIVE PROTEIN (test cod e = 3513) 1.4 MG/DL Dante F AustinURIC [id number] 00:00:00* Test Item Value Reference Range Interpretation Comme nts URIC ACID (test code = 2233) 5.4 MG/DL Dante Crawford AustinCOMPREHENSIVE METABOLIC [id number] 00:00:00* Test Item Value Reference Range Interpretation Comme nts GLUCOSE (test code = 2217) 157 MG/DL BUN (test code = 2208) 21 MG/DL CREATININE (test code = 2214) 0.79 MG/DL eGFR (2020 CKD-EPI) (test code = 02303) 106 ML/MIN/1.73 CALC BUN/CREAT (test code = [...] = 2219) 71 U/L Dante Crawford AustinSEDIMENTATION [id number] 00:00:00* Test Item Value Reference Range Interpretation Comme nts SEDIMENTATION RATE (test cod e = 1017) 5 MM/HOUR Dante F AustinC-REACTIVE [id number] 00:00:00* Test Item Value Reference Range Interpretation Comme nts C-REACTIVE PROTEIN (test cod e = 3513) 1.4 MG/DL Dante Crawford AustinURIC [id number] 00:00:00* Test Item Value Reference Range Interpretation Comme nts URIC ACID (test code = 2233) 5.4 MG/DL Dante Crawford AustinCOMPREHENSIVE METABOLIC [id number] 00:00:00* Test Item Value Reference Range Interpretation Comme nts GLUCOSE (test code = 2217) 157 MG/DL BUN (test code = 2208) 21 MG/DL CREATININE (test code = 2214) 0.79 MG/DL eGFR (2020 CKD-EPI) (test code = 17487) 106 ML/MIN/1.73 CALC BUN/CREAT (test code = [...] = 2219) 71 U/L Dante Crawford AustinSEDIMENTATION [id number] 00:00:00* Test Item Value Reference Range Interpretation Comme nts SEDIMENTATION RATE (test cod e = 1017) 5 MM/HOUR Dante Crawford AustinC-REACTIVE [id number] 00:00:00* Test Item Value Reference Range Interpretation Comme nts C-REACTIVE PROTEIN (test cod e = 3513) 1.4 MG/DL Dante Crawford AustinURIC [id number] 00:00:00* Test Item Value Reference Range Interpretation Comme nts URIC ACID (test code = 2233) 5.4 MG/DL Dante Crawford AustinCOMPREHENSIVE METABOLIC [id number] 00:00:00* Test Item Value Reference Range Interpretation Comme nts GLUCOSE (test code = 2217) 157 MG/DL BUN (test code = 2208) 21 MG/DL CREATININE (test code = 2214) 0.79 MG/DL eGFR (2020 CKD-EPI) (test code = 76405) 106 ML/MIN/1.73 CALC BUN/CREAT (test code = [...] = 2219) 71 U/L Dante Crawford AustinSEDIMENTATION [id number] 00:00:00* Test Item Value Reference Range Interpretation Comme nts SEDIMENTATION RATE (test cod e = 1017) 5 MM/HOUR Dante Crawford AustinC-REACTIVE [id number] 00:00:00* Test Item Value Reference Range Interpretation Comme nts C-REACTIVE PROTEIN (test cod e = 3513) 1.4 MG/DL Dante Crawford AustinURIC [id number] 00:00:00* Test Item Value Reference Range Interpretation Comme nts URIC ACID (test code = 2233) 5.4 MG/DL Dante Crawford AustinCOMPREHENSIVE METABOLIC [id number] 00:00:00* Test Item Value Reference Range Interpretation Comme nts GLUCOSE (test code = 2217) 157 MG/DL BUN (test code = 2208) 21 MG/DL CREATININE (test code = 2214) 0.79 MG/DL eGFR (2020 CKD-EPI) (test code = 36937) 106 ML/MIN/1.73 CALC BUN/CREAT (test code = [...] = 2219) 71 U/L Dante Crawford AustinSEDIMENTATION [id number] 00:00:00* Test Item Value Reference Range Interpretation Comme nts SEDIMENTATION RATE (test cod e = 1017) 5 MM/HOUR Dante Crawford AustinC-REACTIVE [id number] 00:00:00* Test Item Value Reference Range Interpretation Comme nts C-REACTIVE PROTEIN (test cod e = 3513) 1.4 MG/DL Dante Crawford AustinURIC [id number] 00:00:00* Test Item Value Reference Range Interpretation Comme nts URIC ACID (test code = 2233) 5.4 MG/DL Dante Crawford HannaCOMPREHENSIVE METABOLIC [id number] 00:00:00* Test Item Value Reference Range Interpretation Comme nts GLUCOSE (test code = 2217) 157 MG/DL BUN (test code = 2208) 21 MG/DL CREATININE (test code = 2214) 0.79 MG/DL eGFR (2020 CKD-EPI) (test code = 43600) 106 ML/MIN/1.73 CALC BUN/CREAT (test code = [...] = 2219) 71 U/L Dante Crawford AustinSEDIMENTATION [id number] 00:00:00* Test Item Value Reference Range Interpretation Comme nts SEDIMENTATION RATE (test cod e = 1017) 5 MM/HOUR Dante Crawford AustinC-REACTIVE [id number] 00:00:00* Test Item Value Reference Range Interpretation Comme nts C-REACTIVE PROTEIN (test cod e = 3513) 1.4 MG/DL Dante F AustinURIC [id number] 00:00:00* Test Item Value Reference Range Interpretation Comme nts URIC ACID (test code = 2233) 5.4 MG/DL Dante Crawford HannaCOMPREHENSIVE METABOLIC [id number] 00:00:00* Test Item Value Reference Range Interpretation Comme nts GLUCOSE (test code = 2217) 157 MG/DL BUN (test code = 2208) 21 MG/DL CREATININE (test code = 2214) 0.79 MG/DL eGFR (2020 CKD-EPI) (test code = 97349) 106 ML/MIN/1.73 CALC BUN/CREAT (test code = [...] = 2219) 71 U/L Dante Crawford AustinSEDIMENTATION [id number] 00:00:00* Test Item Value Reference Range Interpretation Comme nts SEDIMENTATION RATE (test cod e = 1017) 5 MM/HOUR Dante F AustinC-REACTIVE [id number] 00:00:00* Test Item Value Reference Range Interpretation Comme nts C-REACTIVE PROTEIN (test cod e = 3513) 1.4 MG/DL Dante F AustinURIC [id number] 00:00:00* Test Item Value Reference Range Interpretation Comme nts URIC ACID (test code = 2233) 5.4 MG/DL Dante Crawford AustinCOMPREHENSIVE METABOLIC [id number] 00:00:00* Test Item Value Reference Range Interpretation Comme nts GLUCOSE (test code = 2217) 157 MG/DL BUN (test code = 2208) 21 MG/DL CREATININE (test code = 2214) 0.79 MG/DL eGFR (2020 CKD-EPI) (test code = 70851) 106 ML/MIN/1.73 CALC BUN/CREAT (test code = [...] = 2219) 71 U/L Dante Crawford AustinSEDIMENTATION [id number] 00:00:00* Test Item Value Reference Range Interpretation Comme nts SEDIMENTATION RATE (test cod e = 1017) 5 MM/HOUR Dante F AustinC-REACTIVE [id number] 00:00:00* Test Item Value Reference Range Interpretation Comme nts C-REACTIVE PROTEIN (test cod e = 3513) 1.4 MG/DL Dante Crawford AustinURIC [id number] 00:00:00* Test Item Value Reference Range Interpretation Comme nts URIC ACID (test code = 2233) 5.4 MG/DL Dante LaguerreCOMPREHENSIVE METABOLIC [id number] 00:00:00* Test Item Value Reference Range Interpretation Comme nts GLUCOSE (test code = 2217) 157 MG/DL BUN (test code = 2208) 21 MG/DL CREATININE (test code = 2214) 0.79 MG/DL eGFR (2020 CKD-EPI) (test code = 95366) 106 ML/MIN/1.73 CALC BUN/CREAT (test code = [...] = 2219) 71 U/L Dante Crawford AustinSEDIMENTATION [id number] 00:00:00* Test Item Value Reference Range Interpretation Comme nts SEDIMENTATION RATE (test cod e = 1017) 5 MM/HOUR Dante LaguerreC-REACTIVE [id number] 00:00:00* Test Item Value Reference Range Interpretation Comme nts C-REACTIVE PROTEIN (test cod e = 3513) 1.4 MG/DL Dante LaguerreURIC [id number] 00:00:00* Test Item Value Reference Range Interpretation Comme nts URIC ACID (test code = 2233) 5.4 MG/DL Dante LaguerreCOMPREHENSIVE METABOLIC [id number] 00:00:00* Test Item Value Reference Range Interpretation Comme nts GLUCOSE (test code = 2217) 157 MG/DL BUN (test code = 2208) 21 MG/DL CREATININE (test code = 2214) 0.79 MG/DL eGFR (2020 CKD-EPI) (test code = 18457) 106 ML/MIN/1.73 CALC BUN/CREAT (test code = 2235) 27 RATIO SODIUM (test code = 2231) 145 MEQ/L POTASSIUM (test code = 2228) 4.0 MEQ/L CHLORIDE (test code = 2215) 106 MEQ/L CARBON DIOXIDE (test code = 2206) 29 MEQ/L CALCIUM (test code = 2209) 9.6 MG/DL PROTEIN, TOTAL (test code = 222) 7.2 G/DL ALBUMIN (test code = 2201) 4.7 G/DL CALC GLOBULIN (test code = 2240) 2.5 G/DL CALC A/G RATIO (test code = 2234) 1.9 RATIO BILIRUBIN, TOTAL (test code = 2207) 0.4 MG/DL ALKALINE PHOSPHATASE (test code = 2204) 69 U/L AST (test code = 2218) 48 U/L ALT (test code = 2219) 71 U/L Dante Crawford AustinSEDIMENTATION [id number] 00:00:00* Test Item Value Reference Range Interpretation Comme nts SEDIMENTATION RATE (test cod e = 1017) 5 MM/HOUR Dante LaguerreC-REACTIVE [id number] 00:00:00* Test Item Value Reference Range Interpretation Comme nts C-REACTIVE PROTEIN (test cod e = 3513) 1.4 MG/DL Dante LaguerreURIC [id number] 00:00:00* Test Item Value Reference Range Interpretation Comme nts URIC ACID (test code = 2233) 5.4 MG/DL Dante LaguerreHEMOGLOBIN [id number] 06:01:32* Test Item Value Reference Range Interpretation Comme nts HEMOGLOBIN A1c (test code = 61793) 6.4 % 4.2-5.6 H UNLESS OTHERWISE INDICATED, ALL TESTING PERFORMED [facility] [employer] [address] [place] [address] BUCKLE SEWER: COOKIE GÓMEZ M.D. IA NUMBER [id number] [facility] [place]. [id number] HEMOGLOBIN [id number] 00:00:00* Test Item Value Reference Range Interpretation Comme nts HEMOGLOBIN A1c (test code = 38775) 6.4 % HEMOGLOBIN [id number] 00:00:00* Test Item Value Reference Range Interpretation Comme nts HEMOGLOBIN A1c (test code = 41359) 6.4 % HEMOGLOBIN [id number] 00:00:00* Test Item Value Reference Range Interpretation Comme nts HEMOGLOBIN A1c (test code = 29347) 6.4 % Dante Crawford AustinHEMOGLOBIN [id number] 00:00:00* Test Item Value Reference Range Interpretation Comme nts HEMOGLOBIN A1c (test code = 03292) 6.4 % Dante F AustinHEMOGLOBIN [id number] 00:00:00* Test Item Value Reference Range Interpretation Comme nts HEMOGLOBIN A1c (test code = 92450) 6.4 % Dante F AustinHEMOGLOBIN [id number] 00:00:00* Test Item Value Reference Range Interpretation Comme nts HEMOGLOBIN A1c (test code = 76069) 6.4 % Dante F AustinHEMOGLOBIN [id number] 00:00:00* Test Item Value Reference Range Interpretation Comme nts HEMOGLOBIN A1c (test code = 06393) 6.4 % Dante F AustinHEMOGLOBIN [id number] 00:00:00* Test Item Value Reference Range Interpretation Comme nts HEMOGLOBIN A1c (test code = 14065) 6.4 % Dante F AustinHEMOGLOBIN [id number] 00:00:00* Test Item Value Reference Range Interpretation Comme nts HEMOGLOBIN A1c (test code = 52192) 6.4 % Dante F AustinHEMOGLOBIN [id number] 00:00:00* Test Item Value Reference Range Interpretation Comme nts HEMOGLOBIN A1c (test code = 47203) 6.4 % Dante F AustinHEMOGLOBIN [id number] 00:00:00* Test Item Value Reference Range Interpretation Comme nts HEMOGLOBIN A1c (test code = 96584) 6.4 % Dante F AustinHEMOGLOBIN [id number] 00:00:00* Test Item Value Reference Range Interpretation Comme nts HEMOGLOBIN A1c (test code = 74694) 6.4 % Dante F AustinHEMOGLOBIN [id number] 00:00:00* Test Item Value Reference Range Interpretation Comme isabela HEMOGLOBIN A1c (test code = 50421) 6.4 % Dante LaguerreCOMPREHENSIVE METABOLIC [id number] 04:44:25* Test Item Value Reference Range Interpretation Comme isabela GLUCOSE (test code = 2217) 144 MG/DL 70-99 H BUN (test code = 2208) 15 MG/DL 6-20 CREATININE (test code = 2214) 0.78 MG/DL 0.80-1.40 L EFFECTIVE 2020, [facility] HAS IMPLEMENTED THE NKF-ASN RECOMMENDED KD-EPI EGFR REFIT CALCULATION THAT DOES NOT INCLUDE A COEFFICIENT FORRACE. FOR MORE INFORMATION, SEE ANNOUNCEMENT [email or web address]_CALC eGFR (2020 CKD-EPI) (test code = 75713) 107 ML/MIN/1.73 >60 CALC BUN/CREAT (test code [...] RATIO 1.0-2.6 BILIRUBIN, TOTAL (test code = 2207) <0.2 MG/DL See_Comment [Automated me ssage] The system which generated this result transmitted reference range: <=1.2. The reference range was not used to interpret this result as normal/abnormal. ALKALINE PHOSPHATASE (test code = 2204) 85 U/L 40-121 AST (test code = 2218) 35 U/L 9-50 ALT (test code = 2219) 54 U/L 5-50 H UNLESS OTHERWISE INDICATED, ALL TESTING PERFORMED [facility] [address] [facility] [place] [address] BUCKLE SEWER: COOKIE GÓMEZ M.D. CLIA NUMBER [id number] [facility] [place]. [id number] CBC W/AUTO DIFF WITH [id number] 03:18:31* Test Item Value Reference Range Interpretation [...] DIFFERENTIAL WILL BE ELIMINATED REDUNDANT TOABSOLUTE COUNTS.SEE [email or web address] te LYMPHOCYTES (test code = 1010) [...] 0.00-0.10 ABS NUCLEATED RBCS (test code = 50444) 0.00 K/UL 0.00-0.11 CBC W/AUTO [id number] 00:00:00* Test Item Value Reference Range Interpretation [...] ABS NUCLEATED RBCS (test cod e = 11051) 0.00 K/UL COMPREHENSIVE METABOLIC [id number] 00:00:00* Test Item Value Reference Range Interpretation Comme nts GLUCOSE (test code = 2217) 144 MG/DL BUN (test code = 2208) 15 MG/DL CREATININE (test code = 2214) 0.78 MG/DL eGFR (2020 CKD-EPI) (test code = 40820) 107 ML/MIN/1.73 CALC BUN/CREAT (test code = [...] code = 2219) 54 U/L CBC W/AUTO [id number] 00:00:00* Test Item Value Reference Range Interpretation [...] ABS NUCLEATED RBCS (test cod e = 37252) 0.00 K/UL COMPREHENSIVE METABOLIC [id number] 00:00:00* Test Item Value Reference Range Interpretation Comme nts GLUCOSE (test code = 2217) 144 MG/DL BUN (test code = 2208) 15 MG/DL CREATININE (test code = 2214) 0.78 MG/DL eGFR (2020 CKD-EPI) (test code = 94323) 107 ML/MIN/1.73 CALC BUN/CREAT (test code = [...] code = 2219) 54 U/L CBC W/AUTO [id number] 00:00:00* Test Item Value Reference Range Interpretation [...] ABS NUCLEATED RBCS (test cod e = 57029) 0.00 K/UL Dante LaguerreCOMPREHENSIVE METABOLIC [id number] 00:00:00* Test Item Value Reference Range Interpretation Comme nts GLUCOSE (test code = 2217) 144 MG/DL BUN (test code = 2208) 15 MG/DL CREATININE (test code = 2214) 0.78 MG/DL eGFR (2020 CKD-EPI) (test code = 53078) 107 ML/MIN/1.73 CALC BUN/CREAT (test code = [...] = 2219) 54 U/L Dante LaguerreCBC W/AUTO [id number] 00:00:00* Test Item Value Reference Range Interpretation [...] ABS NUCLEATED RBCS (test cod e = 11902) 0.00 K/UL Dante LaguerreCOMPREHENSIVE METABOLIC [id number] 00:00:00* Test Item Value Reference Range Interpretation Comme nts GLUCOSE (test code = 2217) 144 MG/DL BUN (test code = 2208) 15 MG/DL CREATININE (test code = 2214) 0.78 MG/DL eGFR (2020 CKD-EPI) (test code = 64433) 107 ML/MIN/1.73 CALC BUN/CREAT (test code = [...] (test code = 2219) 54 U/L Dante Crawford [facility] W/AUTO [id number] 00:00:00* Test Item Value Reference Range Interpretation [...] ABS NUCLEATED RBCS (test cod e = 52962) 0.00 K/UL Dante LaguerreCOMPREHENSIVE METABOLIC [id number] 00:00:00* Test Item Value Reference Range Interpretation Comme nts GLUCOSE (test code = 2217) 144 MG/DL BUN (test code = 2208) 15 MG/DL CREATININE (test code = 2214) 0.78 MG/DL eGFR (2020 CKD-EPI) (test code = 44804) 107 ML/MIN/1.73 CALC BUN/CREAT (test code = [...] = 2219) 54 U/L Dante LaguerreCBC W/AUTO [id number] 00:00:00* Test Item Value Reference Range Interpretation [...] ABS NUCLEATED RBCS (test cod e = 42367) 0.00 K/UL Dante LaguerreCOMPREHENSIVE METABOLIC [id number] 00:00:00* Test Item Value Reference Range Interpretation Comme nts GLUCOSE (test code = 2217) 144 MG/DL BUN (test code = 2208) 15 MG/DL CREATININE (test code = 2214) 0.78 MG/DL eGFR (2020 CKD-EPI) (test code = 02078) 107 ML/MIN/1.73 CALC BUN/CREAT (test code = [...] (test code = 2219) 54 U/L Dante Crawford ShadeCBC W/AUTO [id number] 00:00:00* Test Item Value Reference Range Interpretation [...] ABS NUCLEATED RBCS (test cod e = 88882) 0.00 K/UL Dante LaguerreCOMPREHENSIVE METABOLIC [id number] 00:00:00* Test Item Value Reference Range Interpretation Comme nts GLUCOSE (test code = 2217) 144 MG/DL BUN (test code = 2208) 15 MG/DL CREATININE (test code = 2214) 0.78 MG/DL eGFR (2020 CKD-EPI) (test code = 30046) 107 ML/MIN/1.73 CALC BUN/CREAT (test code = [...] = 2219) 54 U/L Dante LaguerreCBC W/AUTO [id number] 00:00:00* Test Item Value Reference Range Interpretation [...] ABS NUCLEATED RBCS (test cod e = 90190) 0.00 K/UL Dante Crawford ShadeCOMPREHENSIVE METABOLIC [id number] 00:00:00* Test Item Value Reference Range Interpretation Comme nts GLUCOSE (test code = 2217) 144 MG/DL BUN (test code = 2208) 15 MG/DL CREATININE (test code = 2214) 0.78 MG/DL eGFR (2020 CKD-EPI) (test code = 23926) 107 ML/MIN/1.73 CALC BUN/CREAT (test code = [...] (test code = 2219) 54 U/L [facility]FL [facility] W/AUTO [id number] 00:00:00* Test Item Value Reference Range Interpretation [...] ABS NUCLEATED RBCS (test cod e = 35634) 0.00 K/UL Dante LaguerreCOMPREHENSIVE METABOLIC [id number] 00:00:00* Test Item Value Reference Range Interpretation Comme nts GLUCOSE (test code = 2217) 144 MG/DL BUN (test code = 2208) 15 MG/DL CREATININE (test code = 2214) 0.78 MG/DL eGFR (2020 CKD-EPI) (test code = 92144) 107 ML/MIN/1.73 CALC BUN/CREAT (test code = [...] = 2219) 54 U/L Dante LaguerreCBC W/AUTO [id number] 00:00:00* Test Item Value Reference Range Interpretation [...] ABS NUCLEATED RBCS (test cod e = 71290) 0.00 K/UL Dante LaguerreCOMPREHENSIVE METABOLIC [id number] 00:00:00* Test Item Value Reference Range Interpretation Comme nts GLUCOSE (test code = 2217) 144 MG/DL BUN (test code = 2208) 15 MG/DL CREATININE (test code = 2214) 0.78 MG/DL eGFR (2020 CKD-EPI) (test code = 44097) 107 ML/MIN/1.73 CALC BUN/CREAT (test code = [...] = 2219) 54 U/L Dante LaguerreCBC W/AUTO [id number] 00:00:00* Test Item Value Reference Range Interpretation [...] ABS NUCLEATED RBCS (test cod e = 10209) 0.00 K/UL Dante LaguerreCOMPREHENSIVE METABOLIC [id number] 00:00:00* Test Item Value Reference Range Interpretation Comme nts GLUCOSE (test code = 2217) 144 MG/DL BUN (test code = 2208) 15 MG/DL CREATININE (test code = 2214) 0.78 MG/DL eGFR (2020 CKD-EPI) (test code = 28312) 107 ML/MIN/1.73 CALC BUN/CREAT (test code = [...] (test code = 2219) 54 U/L Dante Crawford [facility] W/AUTO [id number] 00:00:00* Test Item Value Reference Range Interpretation [...] ABS NUCLEATED RBCS (test cod e = 50076) 0.00 K/UL Dante LaguerreCOMPREHENSIVE METABOLIC [id number] 00:00:00* Test Item Value Reference Range Interpretation Comme nts GLUCOSE (test code = 2217) 144 MG/DL BUN (test code = 2208) 15 MG/DL CREATININE (test code = 2214) 0.78 MG/DL eGFR (2020 CKD-EPI) (test code = 90608) 107 ML/MIN/1.73 CALC BUN/CREAT (test code = [...] = 2219) 54 U/L Dante LaguerreCBC W/AUTO [id number] 00:00:00* Test Item Value Reference Range Interpretation [...] ABS NUCLEATED RBCS (test cod e = 39414) 0.00 K/UL Dante LaguerreCOMPREHENSIVE METABOLIC [id number] 00:00:00* Test Item Value Reference Range Interpretation Comme nts GLUCOSE (test code = 2217) 144 MG/DL BUN (test code = 2208) 15 MG/DL CREATININE (test code = 2214) 0.78 MG/DL eGFR (2020 CKD-EPI) (test code = 81979) 107 ML/MIN/1.73 CALC BUN/CREAT (test code = [...] Comme nts SARS-CoV-2 INTERPRETATION (test code = 77976) NEGATIVE SOURCE (test code = 08338) NASOPHARYNGEAL SARS-CoV-2 (COVID-19) by RT-PCR (HIGH RISK)2021-01-02 00:00:00* Test Item Value Reference Range Interpretation Comme nts SARS-CoV-2 INTERPRETATION (test code = 25461) NEGATIVE SOURCE (test code = 68931) NASOPHARYNGEAL SARS-CoV-2 (COVID-19) by RT-PCR (HIGH RISK)2021-01-02 00:00:00* Test Item Value Reference Range Interpretation Comme nts SARS-CoV-2 INTERPRETATION (test code = 60359) NEGATIVE SOURCE (test code = 77869) NASOPHARYNGEAL Dante F [id number] (COVID-19) by RT-PCR (HIGH RISK)2021-01-02 00:00:00* Test Item Value Reference Range Interpretation Comme nts SARS-CoV-2 INTERPRETATION (test code = 68019) NEGATIVE SOURCE (test code = 67233) NASOPHARYNGEAL Dante F YgmeswBZZN-[id number]-0 (COVID-19) by RT-PCR (HIGH RISK)2021-01-02 00:00:00* Test Item Value Reference Range Interpretation Comme nts SARS-CoV-2 INTERPRETATION (test code = 63360) NEGATIVE SOURCE (test code = 22141) NASOPHARYNGEAL Dante F IzafoaGZIM-KzI-1 (COVID-19) by RT-PCR (HIGH RISK)2021-01-02 00:00:00* Test Item Value Reference Range Interpretation Comme nts SARS-CoV-2 INTERPRETATION (test code = 84548) NEGATIVE SOURCE (test code = 63653) NASOPHARYNGEAL Dante F NtqtzsNCRP-RoM-8 (COVID-19) by RT-PCR (HIGH RISK)2021-01-02 00:00:00* Test Item Value Reference Range Interpretation Comme nts SARS-CoV-2 INTERPRETATION (test code = 63908) NEGATIVE SOURCE (test code = 10604) NASOPHARYNGEAL Dante F TnkgbcHKII-LxL-0 (COVID-19) by RT-PCR (HIGH RISK)2021-01-02 00:00:00* Test Item Value Reference Range Interpretation Comme nts SARS-CoV-2 INTERPRETATION (test code = 16286) NEGATIVE SOURCE (test code = 86107) NASOPHARYNGEAL Dante F OppgtiYVAI-CnO-7 (COVID-19) by RT-PCR (HIGH RISK)2021-01-02 00:00:00* Test Item Value Reference Range Interpretation Comme nts SARS-CoV-2 INTERPRETATION (test code = 27170) NEGATIVE SOURCE (test code = 57660) NASOPHARYNGEAL Dante F KtlakdYXIM-KmW-6 (COVID-19) by RT-PCR (HIGH RISK)2021-01-02 00:00:00* Test Item Value Reference Range Interpretation Comme nts SARS-CoV-2 INTERPRETATION (test code = 12592) NEGATIVE SOURCE (test code = 91976) NASOPHARYNGEAL Dante F FlckxcEKTS-OvJ-5 (COVID-19) by RT-PCR (HIGH RISK)2021-01-02 00:00:00* Test Item Value Reference Range Interpretation Comme nts SARS-CoV-2 INTERPRETATION (test code = 96236) NEGATIVE SOURCE (test code = 47565) NASOPHARYNGEAL Dante F KkrvbjTMRG-OiC-9 (COVID-19) by RT-PCR (HIGH RISK)2021-01-02 00:00:00* Test Item Value Reference Range Interpretation Comme nts SARS-CoV-2 INTERPRETATION (test code = 45563) NEGATIVE SOURCE (test code = 69038) NASOPHARYNGEAL Dante F RmddwcFACZ-GgI-1 (COVID-19) by RT-PCR (HIGH RISK)2021-01-02 00:00:00* Test Item Value Reference Range Interpretation Comme nts SARS-CoV-2 INTERPRETATION (test code = 60196) NEGATIVE SOURCE (test code = 41137) NASOPHARYNGEAL Dante F Shade Consult Notes Date/Time Note Provider Source 2024-04-26 [...] 80 mg, 80 mg, Oral, PC+HSPRN, Jonathan Luciano Zuri, [employer] WORKER, 80 mg at 04/24/24 2129 acetaminophen (TYLENOL) tablet 650 mg, 650 mg, Oral, Q6HPRN, Levon Bonilla MD ondansetron (ZOFRAN (PF)) injection 4 mg, 4 mg, Slow IV Push, Q6HPLaylaN, Levon Bonilla MD pantoprazole (PROTONIX) injection 40 [...] Value 04/26/2024 78 BLOOD CULTURE SCREEN Order: [id number] Status: Final result Visible to patient: No (not released) Dx: Generalized abdominal pain Specimen Information: ARM, RIGHT, BELOW ELBOW; Blood 0 Result Notes important suggestion Newer results are available. Click to view them now. Component Ref Range & Units 3 d ago Blood Culture-Aerobic No growth Culture positive. See Blood Culture Workup for additional information. Lucia Comment: Previous preliminary verified result was Culture [...] Thank you for consult IM-INTERNAL MEDICINE STAFF [facility] - Health History and Physical Notes Date/Time Note Provider Source 2024-04-23 22:07:15 Medicine History & Physical Date of Service: 04/23/2024 Pt presents from: Home CC: Abdominal pain History of Present Illness: Denny Perez is a 53 year old male [...] tablet 650 mg, 650 mg, Oral, Q6HPRN, eLvon Bonilla MD [START ON 04/24/2024] enoxaparin (LOVENOX) injection 40 mg, 40 mg, Subcutaneous, DAILY, Levon Bonilla MD HYDROcodone-acetaminophen (NORCO 5) 5-325 mg tablet 1 tablet, 1 tablet, Oral, Q6HPRN, Levon Bonilla MD lactated ringers IV infusion 1,000 mL, 1,000 mL, IV Infusion, CONTINUOUS, Rene Hamilton MD metroNIDAZOLE (FLAGYL) tablet 500 mg, 500 mg, Oral, ONCE, Reen Hamilton MD morpHINE (4 mg/mL) injection 4 mg, 4 mg, Slow IV Push, ONCE, Toby Mitchell MD morpHINE (4 mg/mL) injection 4 mg, 4 mg, Slow IV Push, Q4HPRN, Levon Bonilla MD NaCl 0.9% (NS) IV infusion 1,000 [...] 3 minutes Disposition: Observation IM-INTERNAL MEDICINE STAFF [facility] - Health Notes Date/Time Note Provider Source [facility]2025-07-22 00:00:00 [facility]2025-06-19 00:00:00 [facility]2025-06-03 00:00:00 [facility]2025-03-17 00:00:00 [facility]2025-02-28 00:00:00 [facility]2025-01-16 00:00:00 [facility]2024-12-17 00:00:00 [facility]2024-11-29 00:00:00 [facility]2024-07-16 00:00:00 [facility]2024-06-13 00:00:00 [facility]2024-06-05 11:51:42 TRANSITIONAL CARE MANAGEMENT ASSESSMENT 04/27/2024 Denny Perez [id number] Denny Perez is a 53 year old /White male was admitted on 04/23/24 to [facility]. He was discharged on 04/26/24 with discharge disposition of HR- Routine Discharge. Admitting Physician: Levon Bonilla Discharge Diagnosis: Generalized abdominal pain Bacteremia No linked episodes TCM Coc-qwtg-ll-face outreach documentation: Discharge Assessment Chart Assessed: 04/27/24 [...] No Future Appointments: Judith Michael [facility] - [id number] 13:40:45 Problem: Falls, Risk of Goal: Absence [...] Adequate for discharge Minerva Love [facility] - [id number] 06:30:55 Problem: Falls, Risk of Goal: Absence [...] VTE diagnosis (Actual) Outcome: Progressing as expected [id number]:33:56 Problem: Falls, Risk of Goal: Absence [...] VTE diagnosis (Actual) Outcome: Progressing as expected [facility]2024-06-02 12:32:13 Problem: Falls, Risk of Goal: Absence [...] VTE diagnosis (Actual) Outcome: Progressing as expected [facility] Anthony [id number] 23:36:36 Problem: Falls, Risk of Goal: Absence [...] VTE diagnosis (Actual) Outcome: Progressing as expected [place] [id number] 20:40:52 Nurse Report Report given to Indu PONCE, Chief complaint, assessment findings, infusion verify and orders reviewed. 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 sent to [facility] for read at 1750, [place] [address]-06-01 18:04:05 Pt sleeping noted sleep apnea, states he does not wear cpap but needs one [place] [address]-06-01 17:18:41 Visitors at bedside [place] [address]-06-01 16:35:21 States after he ate his cereal with blueberries this morning stomach felt kind of sick that was at 0730 so took tylenol and went back to bed because felt a little achy, [id number] 16:18:40 Denny Perez is a 53 year old male arrive [facility] c/o sharp upper bilat abdominal pain for 45 minutes, states had to just lay in the yard because he hurt so bad, no chest pain, no etoh, states normal bm at 1330, no n/v Ingrid England RNFlower [id number] 16:17:00 AdmissionCare Guideline: Abdominal Pain, Undiagnosed, Inpatient Based on the indications selected for the patient, the bed status of Inpatient was determined to be MET The following indications were selected as present at the time of evaluation of the patient: - Severe abdominal tenderness AdmissionCare documentation entered by: Toby Mitchell [facility], 28th edition, Copyright ? 2023 [facility] All Rights Reserved. [id number]:00 [id number] 16:17:00 Images from the original note were not included. 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 METABOLIC PANEL (94762) - Abnormal NA 136 135 - 145 [...] VW CBC WITH DIFF COMP. METABOLIC PANEL (81992) LIPASE TROPONIN I N-TERMINAL PRO-BNP Lactic Acid Whole Blood URINALYSIS BLOOD CULTURE SCREEN BLOOD CULTURE SCREEN CBC with Differential Basic Metabolic Panel (NA, K, CL, CO2, GLUCOSE, BUN, CREATININE, CA) Hepatic Function Panel (46009) (ALB,T.PRO,BILI T,BU/BC,ALT,AST,ALK PHOS) Ethanol Salicylate Prothrombin Time [...] EKG Time 1624 Rate 96 Normal sinus Epes normal Intervals normal No acute ischemia Notes [...] tenderness AdmissionCare documentation entered by: Toby Mitchell [facility], 28th edition, Copyright ? 2023 [facility] [employer] All Rights Reserved. [id number]:00 Limitations to patient care and compliance: none. [...] - Observation Condition -- Comment Treatment Team: [facility] [[id number]] There are no discharge medications for this patient. Toby Mitchell Jr., MD Clinical Supervisor [employer] [facility] Emergency Department Drop Messageson Dictation Software is used frequently and may produce errors. Promptly contact for obvious discrepancies. Toby Mitchell MD 04/23/24 2200 [employer] EMERGENCY PHYSICIAN [facility]
[2025-06-27 09:38] LABS: Absolute Lymphocytes (CBC) 1.9 K/uL (0.7-4.9); Hematocrit 45.7 % (39.6-49.0); Hemoglobin 15.4 g/dL (13.6-17.9); MCH 32.1 pg (27.0-35.0); MCHC 33.7 g/dL (32.0-36.0); MCV 95.2 fL (80-100); MPV 8.6 fL (7.6-11.3); Nucleated RBC Absolute Count 0.0 (0-0); Nucleated Red Blood Cells % 0.0 % (0-0); RBC Red Blood Cell Count 4.80 M/uL (4.33-5.43); White Blood Count 7.30 thou/uL (4.3-10.9)
[2025-06-27 09:59] LABS: ALT/SGPT 73.0 U/L (16-61); AST/SGOT 36.0 U/L (15-37); Albumin 3.4 g/dL (3.4-5.0); Albumin/Globulin Ratio 0.9 (1.1-1.8); Alkaline Phosphatase 66.0 U/L (45-117); Anion Gap 6.4 mEq/L (5.0-15.0); BUN Blood Urea Nitrogen 11.0 mg/dL (7-18); Bilirubin Indirect, Calculated 0.5 mg/dL (0.2-0.8); Globulin 3.6 g/dL (2.3-3.5); Glucose Level 182.0 mg/dL (74-106); Magnesium 2.0 mg/dL (1.6-2.4); NT PRO-BNP 92.0 pg/mL (<125); Potassium 3.4 mEq/L (3.5-5.1); Troponin High Sensitivity 5.3 pg/mL (<58.9)
--- NOTE | 2025-06-27 10:15 | RAD REPORT ---
EXAM: CT CHEST, ABDOMEN AND PELVIS WITH CONTRAST CLINICAL INDICATION: Male, 54 years old. Abd pain;Chest pain TECHNIQUE: CT chest, abdomen, and pelvis was performed, following the administration of contrast, as per department protocol. Axial, sagittal and coronal reconstructions were obtained. One or more of the following dose reduction techniques were used: Automated exposure control, adjustment of the mA a nd/or kV according to patient size, and/or iterative reconstruction. Unless otherwise specified, incidental findings do not require dedicated imaging follow-up. COMPARISON: 04/10/2025 CT chest FINDINGS: LUNGS AND AIRWAYS: No multifocal nodular and groundglass opacities in the basal right lower lobe is m ore abundant on the right, with subsegmental bronchial wall thickening. PLEURA: No pleural effusion. No pneumothorax. MEDIASTINUM AND LYMPH NODES: No mediastinal mass or fluid collection. Normal size mediastinal, hilar, and axillary lymph nodes. THORACIC AORTA: Normal caliber and configuration. PULMONARY ARTERIES: Normal caliber. OSSEOUS STRUCTURES AND CHEST WALL: Intact. LIVER: Normal in size and contour. No focal lesion or biliary dilitation. BILIARY SYSTEM: No suspicious abnormalities. PANCREAS: No mass, ductal dilation, or guillermo-pancreatic fluid. SPLEEN: Normal size. No focal lesion. ADRENALS: Normal; no mass. KIDNEYS AND URETERS: Normal size and contour. No hydronephrosis. URINARY BLADDER: Normal contour. GASTROINTESTINAL TRACT: No bowel obstruction, free air, significant free fluid or abscess. APPENDIX: No inflammatory changes in region of appendix. LYMPH NODES: No lymphadenopathy. ABDOMINAL AORTA AND OTHER VESSELS: Normal caliber aorta and IVC. MUSCULOSKELETAL: No acute or suspicious osseous abnormality. IMPRESSION: Bibasilar multifocal airspace opacities more prominent on the right as above, concerning for pneumoni a. No acute or significant abnormalities seen in the abdomen or pelvis.
[2025-06-27 10:19] LABS: PT Prothrombin Time 12.7 SECONDS (10-13.0); Protime INR 1.13
--- NOTE | 2025-06-27 11:00 | ER ---
Nurse's Notes [facility] Name: Denny Velez Jr Age: 54 yrs Sex: Male : 1970 Arrival Date: 06/27/2025 Time: 08:57 Bed 5 Private MD: Diagnosis: Pneumonia Presentation: 06/27 09:00 Chief complaint: Patient states: started with abd pain for a few days, also running iw fever, now having right sided chest pain, sharp pains. Coronavirus screen: At this time, the client does not indicate any symptoms associated with coronavirus-19. Ebola Screen: No symptoms or risks identified at this time. Initial Sepsis Screen: Does the patient meet any 2 criteria? No. Patient's initial sepsis screen is negative. Does the patient have a suspected source of infection? No. Patient's initial sepsis screen is negative. Risk Assessment: Do you want to hurt yourself or someone else? Patient reports no desire to harm self or others. Onset of symptoms was June 24, 2025. 09:00 Method Of Arrival: Wheelchair iw 09:00 Acuity: PRANEETH 3 iw Triage Assessment: 09:00 General: Appears in no apparent distress. comfortable, Behavior is calm, cooperative, bp appropriate for age. Pain: Complains of pain in back and abdomen. EENT: No deficits noted. Neuro: No deficits noted. Cardiovascular: Reports chest pain. Respiratory: Breath sounds with wheezes bilaterally. GI: Reports upper abdominal pain. : No signs and/or symptoms were reported regarding the genitourinary system. Derm: No deficits noted. Musculoskeletal: No deficits noted. Historical: - Allergies: 09: NKA; iw - PMHx: 09:02 GERD; COPD; iw - Immunization history:: Adult Immunizations up to date. - Infectious Disease History:: Denies. - Social history:: Smoking status: unknown. Screenin:00 [facility] ED Fall Risk Assessment (Adult) History of falling in the last 3 months, bp including since admission No falls in past 3 months (0 pts) Confusion or Disorientation No (0 pts) Intoxicated or Sedated No (0 pts) Impaired Gait No (0 pts) Mobility Assist Device Used No (0 pt) Altered Elimination No (0 pt) Score/Fall Risk Level 0 - 2 = Low Risk Oriented to surroundings. Abuse screen: Denies threats or abuse. Denies injuries from another. Nutritional screening: No deficits noted. Tuberculosis screening: No symptoms or risk factors identified. Assessment: 09:00 General: SEE TRIAGE NOTE. bp Vital Signs: 09:00 BP 147 / 103; Pulse 80; Resp 15; Temp 98; Pulse Ox 96% ; bp 12:35 BP 145 / 95; Pulse 81; Resp 16; Pulse Ox 98% ; bp ED Course: 08:58 Patient arrived in ED. gl 09:00 Karen Sorto MD is Attending Physician. kb 09:00 Patient has correct armband on for positive identification. Provided Education on: NA. bp Client placed on continuous cardiac and pulse oximetry monitoring. NIBP monitoring applied. hall monitor on. Pulse ox on. NIBP on. 09:02 Triage completed. iw 09:02 Arm band placed on. iw 09:07 Andres Gardner RN is Primary Nurse. bp 09:29 Initial lab(s) drawn, by me, sent to lab. EKG done, by ED staff, reviewed by Karen Sorto MD. Inserted saline lock: 20 gauge in right wrist, using aseptic technique. Blood collected. Flushed with 10 mL NS. 09:43 CT Chest, Abdomen, Pelvis - W/Contrast In Process Unspecified. EDMS 12:35 No provider procedures requiring assistance completed. IV discontinued, intact, bp bleeding controlled, No redness/swelling at site. Pressure dressing applied. Patient maintains SpO2 saturation greater than 95% on room air. Administered Medications: 11:12 Drug: levofloxacin IVPB 500 mg 100 ml IVPB once over 60 mins Volume: 100 ml; Route: bp IVPB; Infused Over: 60 mins; Site: left antecubital; 12:33 Follow up: IV Status: Completed infusion bp Outcome: 10:59 Discharge ordered by MD. matson 12:35 Discharged to home ambulatory, bp 12:35 Condition: stable 12:35 Discharge instructions given to patient, Instructed on discharge instructions, follow up and referral plans. medication usage, Demonstrated understanding of instructions, follow-up care, medications, Prescriptions given X 2, 12:36 Patient left the ED. bp Signatures: Dispatcher [employer] EDMS Nikki Grady, DANIE FAN-Rebecca Mathews RN RN iw Andres Gardner, ROSARIO RN Karen Gates MD MD sp3 Angella Boyd, Reg Reg gl
--- NOTE | 2025-06-27 11:00 | EDPHYS ---
Physician Documentation [facility] Name: Denny Velez Jr Age: 54 yrs Sex: Male : 1970 Arrival Date: 06/27/2025 Time: 08:57 Bed 5 Private MD: ED Physician Karen Sorto HPI: 06/27 09:41 This 54 yrs old Male presents to ER via Wheelchair with complaints of Chest Pain, sp3 abdominal pain. 09:45 54-year-old male with history of COPD and GERD presents to the ED with epigastric sp3 abdominal pain extending into his left chest. Patient was seen yesterday at local urgent care where they "did some labs and then let him go home". Patient denies any other symptoms including headache, neck pain, shortness of breath, back pain, diarrhea, vomiting, syncope, near syncope, or any other signs or symptoms on ROS at this time. He does endorse subjective fever which started 3 days ago and has resolved. This was correlated with the start of his abdominal pain.. Historical: - Allergies: 09:02 NKA; iw - PMHx: 09:02 GERD; COPD; iw - Immunization history:: Adult Immunizations up to date. - Infectious Disease History:: Denies. - Social history:: Smoking status: unknown. ROS: 09:47 Constitutional: Negative for fever, chills, and weight loss, Eyes: Negative for injury, sp3 pain, redness, and discharge, ENT: Negative for injury, pain, and discharge, Neck: Negative for injury, pain, and swelling, Respiratory: Negative for shortness of breath, cough, wheezing, and pleuritic chest pain, Back: Negative for injury and pain, MS/Extremity: Negative for injury and deformity, Skin: Negative for injury, rash, and discoloration, Neuro: Negative for headache, weakness, numbness, tingling, and seizure, Psych: Negative for depression, anxiety, suicide ideation, homicidal ideation, and hallucinations, Allergy/Immunology: Negative for hives, rash, and allergies, Endocrine: Negative for neck swelling, polydipsia, polyuria, polyphagia, and marked weight changes, Hematologic/Lymphatic: Negative for swollen nodes, abnormal bleeding, and unusual bruising, 09:47 All other systems are negative, Exam: 09:47 Constitutional: This is a well developed, well nourished patient who is awake, alert, sp3 and in no acute distress. Head/Face: Normocephalic, atraumatic. Eyes: Pupils equal round and reactive to light, extra-ocular motions intact. Lids and lashes normal. Conjunctiva and sclera are non-icteric and not injected. Cornea within normal limits. Periorbital areas with no swelling, redness, or edema. Chest/axilla: Normal chest wall appearance and motion. Nontender with no deformity. No lesions are appreciated. Cardiovascular: Regular rate and rhythm with a normal S1 and S2. No gallops, murmurs, or rubs. Normal PMI, no JVD. No pulse deficits. Respiratory: Lungs have equal breath sounds bilaterally, clear to auscultation and percussion. No rales, rhonchi or wheezes noted. No increased work of breathing, no retractions or nasal flaring. Back: No spinal tenderness. No costovertebral tenderness. Full range of motion. Skin: Warm, dry with normal turgor. Normal color with no rashes, no lesions, and no evidence of cellulitis. MS/ Extremity: Pulses equal, no cyanosis. Neurovascular intact. Full, normal range of motion. Neuro: Awake and alert, GCS 15, oriented to person, place, time, and situation. Cranial nerves II-XII grossly intact. Motor strength 5/5 in all extremities. Sensory grossly intact. Cerebellar exam normal. Normal gait. Psych: Awake, alert, with orientation to person, place and time. Behavior, mood, and affect are within normal limits. 09:48 Abdomen/GI: Epigastric pain to palpation without peritoneal signs, rebound or sp3 guarding., 09:49 ECG was reviewed by the Attending Physician. EKG demonstrates normal sinus rhythm at 81 sp3 bpm with normal intervals, normal QRS, normal axis, normal ST/T-segment's without evidence of acute ischemia. Vital Signs: 09:00 BP 147 / 103; Pulse 80; Resp 15; Temp 98; Pulse Ox 96% ; bp 12:35 BP 145 / 95; Pulse 81; Resp 16; Pulse Ox 98% ; bp MDM: 09:02 Medical Screening Exam initiated sp3 09:48 Data reviewed: vital signs, nurses notes, lab test result(s), EKG, radiologic studies. sp3 ED course: 54-year-old male with epigastric pain extending to the chest. Differential diagnosis includes gastritis, GERD, pancreatitis, biliary pathology, acute coronary syndrome, pleurisy, musculoskeletal, among others. Workup will include EKG, CT scan of the chest abdomen pelvis, general labs and general supportive care. Patient declined pain medication at this time. Disposition pending workup and patient course.. 10:58 ED course: Patient has pneumonia on CT consistent with his fever and symptoms. We will sp3 treat with Levaquin IV and discharged home on p.o. Levaquin and pain control.. 06/27 09:03 Order name: Basic Metabolic Panel; Complete Time: 10:25 sp3 06/27 09:03 Order name: CBC with Diff; Complete Time: 10:25 3 06/27 09:03 Order name: LFT's; Complete Time: 10:25 sp3 06/27 09:03 Order name: Magnesium; Complete Time: 10:25 sp3 06/27 09:03 Order name: NT PRO-BNP; Complete Time: 10:25 sp3 06/27 09:03 Order name: PT-INR; Complete Time: 10:25 sp3 06/27 09:03 Order name: Troponin HS; Complete Time: 10:25 sp3 06/27 10:25 Order name: Blood Culture Adult (2) sp3 06/27 09:03 Order name: CT Chest, Abdomen, Pelvis - W/Contrast; Complete Time: 10:25 sp3 06/27 09:03 Order name: Cardiac monitoring; Complete Time: 09: sp3 06/27 09:03 Order name: EKG - Nurse/Tech; Complete Time: 09: sp3 06/27 09:03 Order name: IV Saline Lock; Complete Time: 09:28 sp3 06/27 09:03 Order name: Labs collected and sent; Complete Time: 09:28 sp3 06/27 09:03 Order name: O2 Per Protocol; Complete Time: 09: sp3 06/27 09:03 Order name: O2 Sat Monitoring; Complete Time: 09: sp3 06/27 09:03 Order name: NPO; Complete Time: 09:05 sp3 06/27 09:47 Order name: Labs - recollect needed: recollect blue top; Complete Time: 10:03 bd Administered Medications: 11:12 Drug: levofloxacin IVPB 500 mg 100 ml IVPB once over 60 mins Volume: 100 ml; Route: bp IVPB; Infused Over: 60 mins; Site: left antecubital; 12:33 Follow up: IV Status: Completed infusion bp Disposition Summary: 06/27/25 10:59 Discharge Ordered Notes: Location: Home sp3 Condition: Stable sp3 Diagnosis - Pneumonia sp3 Followup: sp3 - With: Private Physician - When: Upon discharge from the Emergency Department - Reason: Continuance of care Discharge Instructions: - Discharge Summary Sheet sp3 - Community-Acquired Pneumonia, Adult sp3 Forms: - Medication Reconciliation Form sp3 - Antibiotic Education sp3 - Prescription Opioid Use sp3 - Patient Portal Instructions sp3 - Leadership Thank You Letter sp3 Prescriptions: - Diclofenac Sodium 75 mg Oral Tablet Sustained Release - take 1 tablet ORAL route 2 times per day; 30 tablet; Refills: 0, Product sp3 Selection Permitted - levofloxacin 500 mg Oral tablet - take 1 tablet ORAL route once daily for 7 days; 7 tablet; Refills: 0, Product sp3 Selection Permitted Signatures: Dispatcher [employer] EDRI Suzanne Echavarria Irene, RN ROSARIO iw Andres Gardner RN RN bp Karen Sorto MD MD sp3 Corrections: (The following items were deleted from the chart) 09:04 09:04 BASIC METABOLIC PANEL+C.LAB.BRZ ordered. EDMS EDMS 09:04 09:04 CBC+H.LAB.BRZ ordered. EDMS EDMS 09:04 09:04 HEPATIC FUNCTION+C.LAB.BRZ ordered. EDMS EDMS 09:04 09:04 MAGNESIUM+C.LAB.BRZ ordered. EDMS EDMS 09:04 09:04 PROBNP+C.LAB.BRZ ordered. EDMS EDMS 09:04 09:04 PROTIME (+INR)+COAG.LAB.BRZ ordered. EDMS EDMS 09:04 09:04 Troponin High Sensitivity+C.LAB.BRZ ordered. EDMS EDMS 09:04 09:04 Chest Abdomen Pelvis W Con+CT.RAD.BRZ ordered. EDMS EDMS 09:48 09:47 Constitutional: This is a well developed, well nourished patient who is awake, sp3 alert, and in no acute distress. Head/Face: Normocephalic, atraumatic. Eyes: Pupils equal round and reactive to light, extra-ocular motions intact. Lids and lashes normal. Conjunctiva and sclera are non-icteric and not injected. Cornea within normal limits. Periorbital areas with no swelling, redness, or edema. Chest/axilla: Normal chest wall appearance and motion. Nontender with no deformity. No lesions are appreciated. Cardiovascular: Regular rate and rhythm with a normal S1 and S2. No gallops, murmurs, or rubs. Normal PMI, no JVD. No pulse deficits. Respiratory: Lungs have equal breath sounds bilaterally, clear to auscultation and percussion. No rales, rhonchi or wheezes noted. No increased work of breathing, no retractions or nasal flaring. Back: No spinal tenderness. No costovertebral tenderness. Full range of motion. Skin: Warm, dry with normal turgor. Normal color with no rashes, no lesions, and no evidence of cellulitis. MS/ Extremity: Pulses equal, no cyanosis. Neurovascular intact. Full, normal range of motion. Neuro: Awake and alert, GCS 15, oriented to person, place, time, and situation. Cranial nerves II-XII grossly intact. Motor strength 5/5 in all extremities. Sensory grossly intact. Cerebellar exam normal. Normal gait. Psych: Awake, alert, with orientation to person, place and time. Behavior, mood, and affect are within normal limits. sp3
[2025-06-27] MEDS ORDERED: Levofloxacin500mg IV 500 MG/100 ML BAG IV ONE (11:07)
[2025-06-27 13:37] VITALS: TEMP 98
[2025-06-27 13:38] VITALS: BP 145/95; O2SAT 98
== END 2025-06-27 12:36 | disposition home or self-care (01) ==
LOC: ER 08:57
DX: J18.9 Pneumonia, unspecified organism (principal); J44.9 Chronic obstructive pulmonary disease, unspecified; K21.9 Gastro-esophageal reflux disease without esophagitis
CPT/HCPCS: 96365; 93005; 87040 ×2; 85025; 80048; 36415; 83735; 85610; 80076; 84484; 83880; 71260; 74177; 99285; Q9967